=== PATIENT | male | born 1960 | race Caucasian/White ===

== ENCOUNTER 2024-03-24 14:22 | Outpatient (REF) | payer BC, SELFPAY ==
--- NOTE | 2024-03-24 14:00 | SKI_PTH ---
PATIENT: Kirt Mora LOC: [facility]#:[id number] AGE/SX: 63/M ROOM: RE03/24/[address]: Yahir Delgado : 1960 BED: DIS: 03/24/2024 SPEC #: [id number] RECD: 03/24/24 18:44 STATUS: JEANNIE REQ #: [id number] CHRIS: 03/24/24 14:[address]: Yahir Delgado DEPT: Surgical Specimen RECD BY: Susie Mehta ENTERED: 03/24/24 18:45 SP TYPE: ISI BEJARANO DR: Yahir Obregon Tissues: 1 - SKIN BIOPSY(SHAVE/PUNCH) Procedures: SKIN LEVEL 4 Comments: [id number]
--- OUTSIDE RECORDS SUMMARY | 2024-03-24 14:32 | XMS_ITS | Continuity of Care Document ---
Author Organization [facility] Address [address] [place] [address] Care Team Providers Care Molding Machine Operator Name Role Phone Primeau Yahir SANDRA Primary Care Physician Encounter [facility] Date(s): 10/16/23 - 10/16/[address] [id number] Discharge Disposition: Home or Self Care Attending Physician: Vadim Simpson MD Admitting Physician: Vadim Simpson MD Referring Physician: Vadim Simpson MD Allergies, Adverse Reactions, Alerts No Known Medication Allergies Immunizations Given and Recorded Vaccine Date Status Refusal Reason SARS-CoV-2 (COVID-19) mRNA-1273 vaccine 11/29/20 R ecorded SARS-CoV-2 (COVID-19) mRNA-1273 vaccine 11/01/20 R ecorded tetanus/diphth/pertuss (Tdap) adult/adol 08/12/19 Recorded tetanus-diphth toxoids (Td) adult/adol 08/03/98 Re corded Medications acetaminophen 325 mg oral tablet 650 mg = 2 tab, Oral, every 6 hr, PRN pain, mild, 0 Refill(s) Start Date: 10/09/23 Status: Ordered Colace 100 mg oral capsule 200 mg = 2 cap, Oral, BID, 0 Refill(s) Start Date: 10/09/23 Status: Ordered Fish Oil oral capsule 1 cap, Oral, Daily, # 100 cap, 0 Refill(s) Start Date: 08/04/23 Status: Ordered Myrbetriq 25 mg oral tablet, extended release 25 mg = 1 tab, Oral, Daily, do not crush or chew, # 28 tab, 0 Refill(s), samples given to patient (Rx) Start Date: 10/16/23 Stop Date: 11/13/23 Status: Ordered PreserVision AREDS 2 oral capsule 1 cap, Oral, BID, 0 Refill(s) Start Date: 08/28/23 Status: Ordered Problem List Condition Confirmation Course Effective Dates Status H ealth Status Informant 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 Impacted cerumen of right ear Confirmed Active Hernia, inguinal, unilateral Confirmed Active Osteoarthritis - hand joint Confirmed Active Senile purpura Confirmed Active Procedures Procedure Date Related Diagnosis Body Site Status Transurethral electrosurgica l resection of prostate, including control of postoperative bleeding, complete (vasectomy, meatotomy, cystourethroscopy, urethral calibration and/or dilation, and internal urethrotomy are included) 10/06/23 Comple ira Colonoscopy 04/12/17 Completed Repair of inguinal hernia 02/17/17 Completed Vasectomy Completed Results Orders for Microbiology Reports Name Date Urine Culture 10/16/23 Microbiology Reports TEST:Urine Culture STATUS:Order in Progress BODY SITE: SOURCE:Urine, Clean Catch COLLECTED DATE/TIME:10/16/23 10:23 AM PRELIMINARY REPORT No growth at 24 hours. Social History Social History Type Response Tobacco Never tobacco user T obacco Use:. Sex Male Patient Care team information Care Team Personnel Name: Yahir Andrews MD Position: No Access Member Role: Informed Provider Address: Address: [address] Care Team Related Persons Name: ALMA RAMIREZ Address: [address] [id number] Address: Home [address] [place] [phone]
--- OUTSIDE RECORDS SUMMARY | 2024-03-24 14:32 | XMS_ITS | Encounter Summary ---
Author Organization [facility] Address [address] [place] [address] Care Team Providers Care Die Setter Name Role Phone Unknown, Provider Primary Care Provider Reason for Visit * Reason Comments Eye Flashes And/Or Floaters New flashes and floaters ?left Hx of laser to tear right eye 03/12/21, hx of lattice right eye, hx of Dry AMD both eyes Encounter Details Date Type Department Care Team (Late st Contact Info) Description 11/04/2022 14:00 EDT Office Visit [facility] Ophthalmology - [address] [phone] Yahir Cuevas MD [address] [facility], [address] [place] [address] Social History Tobacco Use Types Packs/Day Years Used Date Smoking Tobacco: Never Smokeless Tobacco: Never Alcohol Use Standard Drinks/Week Comments Not Currently 0 (1 standard drink = 0.6 oz pur e alcohol) very rare PHQ-2 Answer Date Recorded PHQ-2 SUBTOTAL 0 12/24/2021 Interpersonal Safety Answer Date Record ed Physically Hurt Never 03/04/2020 Verbally Threaten Not on file 03/04/2020 Sex and Gender Information Value Date Recorded Sex Assigned at Not on file Gender Identity Male 09/26/2020 15:47 EST Sexual Orientation Not on file documented as of this encounter Progress Notes * Yahir Cuevas MD - 11/04/2022 1400 EDT Chief Complaint Patient presents with ??? Eye Flashes And/Or Floaters New flashes and floaters ?left Hx of laser to tear right eye 03/12/21, hx of lattice right eye, hx of Dry AMD both eyes Comments Eye Flashes And/Or Floaters Additional comments: New flashes and floaters ?left Hx of laser to tear right eye 03/12/21, hx of lattice right eye, hx of Dry AMD both eyes HPI Location: Left eye Pain: 0 - No pain Quality: Blurry Severity: Moderate Duration: Days Timing: Constant Lasts: Continuous Context: While driving to work yesterday early am he noticed flashes while turning head to the left. Flashes stopped by 7 am but then had new waterfall of floaters moving around. Seemed better this am but has progressed again. temporal side of vision seems foggy/smokey. No distinct curtain or shadein vision. Modifying factors: right eye seems to be doing ok. Associated Signs & Symptoms: Visual Fluctuations: Flashes, Floaters Attestation: Base Eye Exam Visual Acuity (Snellen - Linear) Right Left Dist cc 20/25 20/25 +2 Tonometry (Applanation, 14:51) Right Left Pressure 12 12 Visual Singer Right Left Full Full Neuro/Psych Oriented x3: Yes Mood/Affect: Normal Dilation Both eyes: Phenylephrine 2.5%, Tropicamide 1% @ 14:52 Slit Lamp and Fundus Exam Slit Lamp Exam Right Left Lids/Lashes Normal Normal Conjunctiva/Sclera White and quiet White and quiet Cornea Clear nasal Pterygium Anterior Chamber Deep and quiet Deep and quiet Iris Round and reactive Round and reactive Lens 1+ Nuclear sclerosis 1+ Nuclear sclerosis Anterior Vitreous Posterior vitreous detachment Posterior vitreous detachment Fundus Exam Right Left Disc Healthy Rim Healthy Rim C/D Ratio 0.4 0.3 Macula large drusen large confluent drusen, no hemorrhage, no fluid Vessels Normal Normal Periphery Retina is attached. Lattice at 11:00 and retinal tear at 12:00 are both well surrounded by laser scars. No new holes, tears or breaks seen Retina attached 360, no holes, tears or breaks seen, paving stone inf temp Please refer to large retinal drawing. OCT, Retina - OU - Both Eyes Right Eye Quality was good. Scan locations included subfoveal. Progression has been stable. Findings include pigment epithelial detachment, macular pucker. Left Eye Quality was good. Scan locations included subfoveal. Progression has been stable. Findings include pigment epithelial detachment. Notes Both eyes: Drusen, no fluid. ERM right eye OCT-A: No CNVM DIAGNOSES: 1. 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 Retinal tear of right eye 3. Lattice degeneration of retina, right eye 4. PVD (posterior vitreous detachment), both eyes Assessment Intermediate??dry age-related macular degeneration both eyes Stable vision and drusen No sign of CNVM Continue areds??2??vitamins. Observe ?? Retinal Tear right??eye Adjacent to patch of lattice degeneration. Well surrounded by laser scars??s/p laser 03-12-2021 retinopexy ERM developing - asympotmatic No new holes, tears or breaks seen Retinal detachment precautions??reviewed. ?? Lattice Degeneration??right??eye. Vs paving stone degeneration??temporally Well surrounded by laser scars superiorly Retina is attached?? Follow. ?? Posterior vitreous detachment, both eyes Retina attached, no??new??predisposing lesions to retinal detachment. New flashes and floaters left eye No holes, tears or retina detachment on 360 SD exam Retinal detachment precautions reviewed ?? Return in 6 months with OCT I have reviewed the past medical, family, social and surgical history. I have reviewed the meds, allergies, and problem list. I performed my own HPI and reviewed the ROS. I personally completed the exam. The patient was instructed to call our office or go to emergency room if worse vision, worse symptoms, or new/other concerns arise. Yahir Cuevas MD I am scribing for Dr. Yahir Cuevas MD while he is personally performing the service. HARRY Willams (Scribe) documented in this encounter Plan of Treatment Upcoming Encounters Date Type Department Care Team (Late st Contact Info) Description 05/27/2024 9:45 EDT Office Visit [facility] Ophthalmology - [address] [address] Yahir Cuevas MD [address] [facility], [address] [place] [address] documented as of this encounter Procedures Procedure Name Priority Date/Time Associated Diagnosis Comments OCT, RETINA - OU - BOTH EYES Routine 11/04/2022 16:38 EDT Intermediate stage nonexudative age-related macular degeneration of both eyes documented in this encounter Results * OCT, RETINA - OU - BOTH EYES (11/04/2022 16:38 EDT) Narrative [facility] OPHTHALMOLOGY - 11/04/2022 17:38 EDT Right Eye Quality was good. Scan locations included subfoveal. Progression has been stable. Findings include pigment epithelial detachment, macular pucker. Left Eye Quality was good. Scan locations included subfoveal. Progression has been stable. Findings include pigment epithelial detachment. Notes Both eyes: Drusen, no fluid. ERM right eye OCT-A: No CNVM Yahir Cuevas MD OPHTH TOMOGRAPHY [facility] OPHTHALMOLOGY documented in this encounter Visit Diagnoses Diagnosis Intermediate stage nonexudative age-related macular degeneration of both eyes- Primary Retinal tear of right eye Lattice degeneration of retina, right eye PVD (posterior vitreous detachment), both eyes Vitreous degeneration documented in this encounter Eye Exam Visual Acuity (Snellen - Linear) Right eye Left eye Dist cc 20/25 20/25 +2 Tonometry (Applanation, 14:51) Right eye Left eye Pressure 12 12 Visual Singer Right eye Left eye Full Full Neuro/Psych Oriented x3: Yes Mood/Affect: Normal Dilation Both eyes: Phenylephrine 2.5 %, Tropicamide 1% @ 14:52 Slit Lamp Exam Right eye Left eye Lids/Lashes Normal Normal Conjunctiva/Sclera White and quiet White and yenni et Cornea Clear nasal Pterygium Anterior Chamber Deep and quiet Deep and quiet Iris Round and reactive Round and radhika ctive Lens 1+ Nuclear sclerosis 1+ Nuclear sclerosis Anterior Vitreous Posterior vitreous detachment Posterior vitreous detachment Fundus Exam Right eye Left eye Disc Healthy Rim Healthy Rim C/D Ratio 0.4 0.3 Macula large drusen large confluent drusen, no hemorrhage, no fluid Vessels Normal Normal Periphery Retina is attached. Lattice at 11:00 and retinal tear at 12:00 are both well surrounded by laser scars. No new holes, tears or breaks seen Retina attached 360, no holes, tears or breaks seen, paving stone inf temp Care Teams Die Setter Relationship Specialty Start Date End Date Unknown, Provider, PCP - General 10/25/21 05/18/23 documented as of this encounter
--- OUTSIDE RECORDS SUMMARY | 2024-03-24 14:32 | XMS_ITS | Encounter Summary ---
Author Organization [facility] Address [address] [place] [address] Care Team Providers Care Receptionist Telephone Operator Name Role Phone Yahir Delgado MD Primary Care Provider [phone] Encounter Details Date Type Department Care Team (Late st Contact Info) Description 08/04/2023 Lab Requisition [facility] Pathology & Laboratory Medicine [address] [phone] Vadim Simpson MD [address] [place] [id number] Frequency of micturition Social History Tobacco Use Types Packs/Day Years [...] on file documented as of this encounter Plan of Treatment Upcoming Encounters Date Type Department Care Team (Late st Contact Info) Description 05/27/2024 9:45 EDT Office Visit [facility] Ophthalmology - [address] [phone] Yahir Cuevas MD [address] [facility], [address] [place] [address] [phone] (work) documented as of this encounter Procedures Procedure Name Priority Date/Time Associated Diagnosis Comments NON LOG CHAIN WORKER/FNA CYTOLOGY Today 08/04/2023 13:51 EST documented in this encounter Results * NON LOG CHAIN WORKER/FNA CYTOLOGY (08/04/2023 13:51 EST) Note to Patient The following pathology results have been interpreted by your pathologist and may be available to you before your health provider has had the opportunity to review them. Please allow time for your provider to receive these results and explore management options, if applicable. 08/05/2023 16:32 [facility] Final Diagnosis URINE, BARBOTAGE, CYTOLOGIC EVALUATION: - Negative for high grade urothelial carcinoma. 08/05/2023 16:32 [facility] Attestation There was significant resident/viola renee involvement in the diagnostic evaluation of this case. By the signature below, the attending physician certifies that they have personally conducted a gross and/or microscopic examination of the described specimens and rendered or confirmed the above diagnosis. 08/05/2023 16:32 [facility] at 1632 Clinical History R35.0 08/05/2023 16:32 [facility] Gross Description A. 90cc's of clear yellow fluid (Cytolyt added) were received and processed by selective cellular enhancement technique. 08/05/2023 16:32 [facility] Resident/Viola w: Mayuri Zamora MD 08/05/2023 16:32 [facility] Performing Lab [facility] 08/05/2023 16:32 [facility] Scanned Images 08/05/2023 16:32 [facility] ZZUNK URINE / Unknown 08/04/2023 1 3:51 EST 08/05/2023 6:39 EST Vadim Simpson MD PATHOLOGY ORDERABLES [facility] [address] [place] [address] documented in this encounter Visit Diagnoses Diagnosis Frequency of micturition Urinary frequency documented in this encounter Care Teams Receptionist Telephone Operator Relationship Specialty Start Date End Date Yahir Delgado MD [address] [place] [address] PCP - General Internal Medicine - Primary Care 05/19/23 documented as of this encounter
--- OUTSIDE RECORDS SUMMARY | 2024-03-24 14:32 | XMS_ITS | Clinical Summary ---
Author Organization [facility] [place] [address] Care Team Providers Care Sawsmith Name Role Phone None Primary Care Provider Unavailabl e Social History Tobacco Use Types Packs/Day Years Used Date Smoking Tobacco: Never Assessed Sex and Gender Information Value Date Recorded Sex Assigned at Not on file Gender Identity Not on file Sexual Orientation Not on file Plan of Treatment Health Maintenance Due Date Last Done Comments CT Colonography 1960 Colonoscopy 1960 Colorectal Cancer Screening 1960 FIT DNA 1960 FIT 1960 Sigmoidoscopy (10 year) with FIT yearly 1960 Sigmoidoscopy 1960 HIV screen 1976 Hepatitis C Screening 1976 Lipid Screening 1976 Tdap adult 1977 Tetanus vaccine 1977 Zoster vaccine (1 of 2) 2008 Advance Directive 2013 Covid-19 Vaccine ( - 2022-24 season) 2023 Pneumoccocal Vaccine: 65+ (1 of 1 - PCV) 12/14/2023 Influenza (Flu) vaccine (1 o f 1 - Influenza standard series) 04/03/2024 Care Teams Sawsmith Relationship Specialty Start Date End Date None None PCP - General 06/25/10
--- OUTSIDE RECORDS SUMMARY | 2024-03-24 14:32 | XMS_ITS | Continuity of Care Document ---
Author Organization [facility] Address [address] [place] [address] Care Team Providers Care Pit Operator Name Role Phone Primeau IPHC, Yahir Trinidad Primary Care Physician Encounter [facility] [id number] Date(s): 10/06/23 - 10/06/23 [facility] [address] [place] [address] Discharge Disposition: Home Allergies, Adverse Reactions, Alerts No Known Medication Allergies Immunizations Given and Recorded Vaccine Date Status Refusal Reason SARS-CoV-2 (COVID-19) mRNA-1273 vaccine 11/29/20 R ecorded SARS-CoV-2 (COVID-19) mRNA-1273 vaccine 11/01/20 R ecorded tetanus/diphth/pertuss (Tdap) adult/adol 08/12/19 Recorded tetanus-diphth toxoids (Td) adult/adol 08/03/98 Re corded Medications Fish Oil oral capsule 1 cap, Oral, Daily, # 100 cap, 0 Refill(s) Start Date: 08/04/23 Status: Ordered PreserVision AREDS 2 oral capsule 1 cap, Oral, BID, 0 Refill(s) Start Date: 08/28/23 Status: Ordered tamsulosin 0.4 mg oral capsule 0.8 mg = 2 cap, Oral, every night at bedtime, 0 Refill(s) Start Date: 10/06/23 Status: Ordered Problem List Condition Confirmation Course Effective Dates Status H ealth Status Informant 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 Sex Male Patient Care team information Care Team Personnel Name: Yahir Andrews MD Position: No Access Member Role: Informed Provider Address: Address: [address] Care Team Related Persons Name: ALMA RAMIREZ Address: [place] [address] Address: [place] [address]
--- OUTSIDE RECORDS SUMMARY | 2024-03-24 14:32 | XMS_ITS | Referral Summary ---
Author Organization [facility] Address [address] [place] [address] Care Team Providers Care Sewer Inspector Name Role Phone Yahir Delgado MD Primary Care Provider [phone] Allergies Active Allergy Reactions Criticality Noted Date Comments Grass Pollen Shortness Of Breath,Other (See Comments) Medium 03/12/2021 Eye redness, itching Medications Medication Sig Dispensed Refills Start Date End Date Status Nicholson-3 Fatty Acids-Vitamin E 1,000 mg capsule Take 2,000 mg by mouth daily. Active VIT C/E/ZN/COPPR/LUTEIN/TY ANNA (PRESERVISION AREDS 2 ORAL) Take by mouth. Active MINERAL OIL/PETROLATUM,WHITE (TEARS AGAIN OPHTHALMIC) Apply to eye as needed. Active doxycycline (ADOXA) 100 mg tablet Take 100 mg by mouth 2 times daily. Active Active Problems Patient Care Coordination No te Formatting of this note migh t be different from the original. Clinic: Need to verify patient's address. Too close to appointment to place call. Please verify or transfer to pre-registration to register. Thank you (Bibi Kolb 10/25/2021 8:47) Problem Noted Date Diagnosed Date Intermediate stage nonexudat lauren age-related macular degeneration of both eyes 03/12/2021 Pterygium of left eye 03/12/2021 Nuclear sclerosis of both eyes 03/12/2021 Lattice degeneration of retina, right eye 2020 Retinal tear of right eye 03/12/2021 PVD (posterior vitreous detachment), both eyes 0 01/18/2016 Dry eye 02/17/2014 Social History Tobacco Use Types Packs/Day Years [...] 15:47 EST Sexual Orientation Not on file Last Filed Vital Signs Vital Sign Reading Time Taken Comments Blood Pressure 137/78 12/24/2021 1318 EDT Pulse 66 12/24/2021 1318 EDT Temperature 36.7 ??C (98 ??F) 12/24/2021 1318 EDT Respiratory Rate 16 12/24/2021 1318 EDT Oxygen Saturation 97% 12/24/2021 1318 EDT Inhaled Oxygen Concentration - - Weight - - Height - - Body Mass Index - - Plan of Treatment Upcoming Encounters Date Type Department Care Team (Late st Contact Info) Description 05/27/2024 9:45 EDT Office Visit [facility] Ophthalmology - [address] [address] Yahir Cuevas MD [address] [place] [address], [address] [place] [phone] Care Teams Sewer Inspector Relationship Specialty Start Date End Date Yahir Delgado MD [address] [place] [address] PCP - General Internal Medicine - Primary Care 05/19/23
--- OUTSIDE RECORDS SUMMARY | 2024-03-24 14:32 | XMS_ITS | Encounter Summary ---
Author Organization [facility] Address [address] [place] [address] Care Team Providers Care Clinical Coordinator Name Role Phone Unknown, Provider Primary Care Provider [phone] Reason for Visit * Reason Comments Follow-up Encounter Details Date Type Department Care Team (Late st Contact Info) Description 11/08/2021 8:00 EDT Office Visit [facility] Ophthalmology - [address] [phone] Yahir Cuevas MD [address] [place] [address], [address] [place] [phone] Social History Tobacco Use Types Packs/Day Years Used Date Smoking Tobacco: Never Smokeless Tobacco: Never Alcohol Use Standard Drinks/Week Comments Not Currently 0 (1 standard drink = 0.6 oz pur e alcohol) very rare Interpersonal Safety Answer Date Record ed Physically Hurt Never 03/04/2020 Verbally Threaten Not on file 03/04/2020 Sex and Gender Information Value Date Recorded Sex Assigned at Not on file Gender Identity Male 09/26/2020 15:47 EST Sexual Orientation Not on file documented as of this encounter Progress Notes * Yahir Cuevas MD - 11/08/2021 0800 EDT Chief Complaint Patient presents with ??? Follow-up Comments Pt here for 2 week f/u S/P Laser to HST right (03-12-21) Hx of Dry AMD both VA blurry right eye like looking through waterfall that comes and goes. Floaters both eyes longstanding no new or different. No flashes. No pain HPI Location: Both eyes Pain: 0 - No pain Quality: Blurry Severity: Moderate Duration: Years Timing: Constant Lasts: Continuous Context: VA blurry right eye like looking through waterfall that comes and goes. Floaters both eyes longstanding no new or different. No flashes. No pain Modifying factors: S/P Laser to HST right (03-12-21) Daily AG/AREDS Associated Signs & Symptoms: HST right, Dry AMD both Visual Fluctuations: Floaters Attestation: Base Eye Exam Visual Acuity (Snellen - Linear) Right Left Dist sc 20/40 +2 20/20 -2 Dist ph sc 20/25 +2 Tonometry (Applanation, 8:29) Right Left Pressure 13 13 Neuro/Psych Oriented x3: Yes Mood/Affect: Normal Dilation Right eye: Phenylephrine 2.5%, Tropicamide 1% @ 8:29 Slit Lamp and Fundus Exam Slit Lamp Exam Right Left Lids/Lashes Normal Normal Conjunctiva/Sclera White and quiet White and quiet Cornea Clear nasal Pterygium Anterior Chamber Deep and quiet Deep and quiet Iris Round and reactive Round and reactive Lens 1+ Nuclear sclerosis 1+ Nuclear sclerosis Vitreous Posterior vitreous detachment Posterior vitreous detachment [...] attached 360, no holes, tears or breaks seen Please refer to large retinal drawing. IMAGING: OCT, Retina - OU - Both Eyes Right Eye Quality was good. Scan locations included subfoveal. Progression has been stable. Findings include pigment epithelial detachment. Left Eye Quality was good. Scan locations included subfoveal. Progression has been stable. Findings include pigment epithelial detachment. Notes Both eyes: Drusen, no fluid OCT-A: No CNVM DIAGNOSES: 1. 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 Retinal tear of right eye Assessment Intermediate??dry age-related macular degeneration both eyes Continue areds??2??vitamins. Observe ?? Retinal Tear right??eye Adjacent to patch of lattice degeneration. Well surrounded by laser scars??s/p laser 03-12-2021 retinopexy No new holes, tears or breaks seen Retinal detachment precautions??reviewed. ?? Lattice Degeneration??right??eye. Vs paving stone degeneration??temporally Well surrounded by laser scars superiorly Retina is attached?? Follow. ?? Posterior vitreous detachment, both eyes Retina attached, no??new??predisposing lesions to retinal detachment. ?? Return 6 months/PRN I have reviewed the past medical, family, [...] he is personally performing the service. HARRY Dow (Scribe) documented in this encounter Plan of Treatment Upcoming Encounters Date Type Department Care Team (Late st Contact Info) Description 05/27/2024 9:45 EDT Office Visit [facility] Ophthalmology - [address] [phone] Yahir Cuevas MD [address] [place] [address], [address] [place] [phone] documented as of this encounter Procedures Procedure Name Priority Date/Time Associated Diagnosis Comments OCT, RETINA - OU - BOTH EYES Routine 11/08/2021 9:02 EDT Intermediate stage nonexudative age-related macular degeneration of both eyes documented in this encounter Results * OCT, RETINA - OU - BOTH EYES (11/08/2021 9:02 EDT) Narrative [facility]INT [facility] C[facility] - 11/12/2021 9:22 EDT Right Eye Quality was good. Scan locations included subfoveal. Progression has been stable. Findings include pigment epithelial detachment. Left Eye Quality was good. Scan locations included subfoveal. Progression has been stable. Findings include pigment epithelial detachment. Notes Both eyes: Drusen, no fluid OCT-A: No CNVM Yahir Cuevas MD OPHTH TOMOGRAPHY [facility] POINT [facility] documented in this encounter Visit Diagnoses Diagnosis Intermediate stage nonexudative age-related macular degeneration of both eyes- Primary Retinal tear of right eye documented in this encounter Eye Exam Visual Acuity (Snellen - Linear) Right eye Left eye Dist sc 20/40 +2 20/20 -2 Dist ph sc 20/25 +2 Tonometry (Applanation, 8:29) Right eye Left eye Pressure 13 13 Neuro/Psych Oriented x3: Yes Mood/Affect: Normal Dilation Right eye: Phenylephrine 2.5 %, Tropicamide 1% @ 8:29 Slit Lamp Exam Right eye Left eye Lids/Lashes Normal Normal Conjunctiva/Sclera White and quiet White and yenni et Cornea Clear nasal Pterygium Anterior Chamber Deep and quiet Deep and quiet Iris Round and reactive Round and radhika ctive Lens 1+ Nuclear sclerosis 1+ Nuclear sclerosis Vitreous Posterior vitreous detachment Po sterior vitreous detachment Fundus Exam Right eye Left [...] attached 360, no holes, tears or breaks seen Care Teams Clinical Coordinator Relationship Specialty Start Date End Date Unknown, Provider, PCP - General 10/25/21 05/18/23 documented as of this encounter
--- OUTSIDE RECORDS SUMMARY | 2024-03-24 14:32 | XMS_ITS | Encounter Summary ---
Author Organization [facility] Address [facility] [place] [address] Care Team Providers Care Shoe Cleaner Name Role Phone None Primary Care Provider Unavailabl e Encounter Details Date Type Department Care Team (Late st Contact Info) Description 11/26/2023 3:48 PM EDT - 11/26/2023 11:59 PM EDT Hospital Encounter [facility] [address] [place] [phone] Vadim Simpson MD [address] [place] [address] Discharge Disposition: Home Social History Tobacco Use Types Packs/Day Years Used Date Smoking Tobacco: Never Assessed Sex and Gender Information Value Date Recorded Sex Assigned at Not on file Gender Identity Not on file Sexual Orientation Not on file documented as of this encounter Plan of Treatment Not on file documented as of this encounter Procedures Procedure Name Priority Date/Time Associated Diagnosis Comments URINE CULTURE Routine 11/26/2023 2:14 PM EDT documented in this encounter Results * Urine culture (11/26/2023 2:14 PM EDT) Urine Culture No growth (Less than 1,000 cfu/ml). [facility] Clean Catch Urine 11/26/2023 2:14 PM EDT 11/26/2023 9:59 PM EDT Narrative Resulting Agency Comment Spec In Lab Vadim Simpson MD MICROBIOLOGY - GENER AL ORDERABLES [facility] [place] [address] documented in this encounter Visit Diagnoses Not on filedocumented in this encounter Care Teams Shoe Cleaner Relationship Specialty Start Date End Date None None PCP - General 06/25/10 documented as of this encounter
--- OUTSIDE RECORDS SUMMARY | 2024-03-24 14:32 | XMS_ITS | Encounter Summary ---
Author Organization [facility] Address [address] [place] [address] Care Team Providers Care Hedis Registered Nurse Rn Name Role Phone Unknown, Provider Primary Care Provider [phone] Reason for Visit * Reason Onset Date Comments Eye Problem 10/25/2021 Encounter Details Date Type Department Care Team (Late st Contact Info) Description 10/25/2021 Telephone [facility] Ophthalmology - [address] [address] Yahir Cuevas MD [address] [place] [address], [address] [place] [phone] Eye Problem Social History Tobacco Use Types Packs/Day Years [...] on file documented as of this encounter Miscellaneous Notes * Telephone Encounter - Adriana Garcia - 10/25/2021 0832 EDT Pt schedule at 9am this morning with RR * Telephone Encounter - Jesus Ivan RN - 10/25/[address] Cuevas needs to see this morning. Possible laser. Salima/Adriana to call. Jesus Person RN 10/25/2021 8:28 * Telephone Encounter - Janie Soto - 10/25/2021 0808 EDT Which Eye? right Nature of problem? Floaters, wateryfall things he was told by RR pt things that it may be a retinaltear as this is what he experinced last time in the other eye Onset and Duration? 3 days ago Is this an injury or trauma? Are you having pain? Describe the type of pain you are having (sharp, dull, etc) no If yes, please rate pain on scale 0-10? Have you had any recent surgery? Do you have establish eye care? yes With who? Dr Mccain Did you call them? No If yes, do you have appointment with them? No Are the notes being faxed over? documented in this encounter Plan of Treatment Upcoming Encounters Date Type Department Care Team (Late st Contact Info) Description 05/27/2024 9:45 EDT Office Visit [facility] Ophthalmology - [address] [phone] Yahir Cuevas MD [address] [facility], [address] [place] [phone] documented as of this encounter Visit Diagnoses Not on filedocumented in this encounter Care Teams Hedis Registered Nurse Rn Relationship Specialty Start Date End Date Unknown, Provider, PCP - General 10/25/21 05/18/23 documented as of this encounter
--- OUTSIDE RECORDS SUMMARY | 2024-03-24 14:32 | XMS_ITS | Encounter Summary ---
Author Organization [facility] Address [address] [place] [address] Care Team Providers Care Film Spooler Name Role Phone Yahir Delgado MD Primary Care Provider [phone] Reason for Visit * Reason Comments Eye Problem Encounter Details Date Type Department Care Team (Late st Contact Info) Description 05/22/2023 14:00 EDT Office Visit [facility] Ophthalmology - [address] [address] Yahir Cuevas MD [address] [place] [address], [address] [place] [phone] Social History Tobacco Use Types Packs/Day Years [...] Progress Notes * Yahir Cuevas MD - 05/22/2023 1400 EDT Chief Complaint Patient presents with ??? Eye Problem HPI F/u Dry AMD both eyes, h/o Retinal tear-treated 03/12/21, Pt stats little more blurrier last few months, no pain, more often seeing flashes, stable floaters Base Eye Exam Visual Acuity (Snellen - Linear) Right Left Dist cc 20/25 -1 20/20 -2 Correction: Glasses Tonometry (Applanation, 14:06) Right Left Pressure 13 11 Neuro/Psych Oriented x3: Yes Mood/Affect: Normal Dilation Both eyes: Phenylephrine 2.5%, Tropicamide 1% @ 14:06 Slit Lamp and Fundus Exam Slit Lamp [...] or breaks seen, paving stone inf temp OCT, Retina - OU - Both Eyes Right Eye Quality was good. Scan locations included subfoveal. Progression has been stable. Findings include macular pucker, pigment epithelial detachment. Left Eye Quality was [...] degeneration. Well surrounded by laser scars??s/p laser 03-12-2021??retinopexy ERM developing - asympotmatic No new holes, [...] Retinal detachment precautions reviewed ?? Return in about 1 year (around 05/22/2024), or if symptoms worsen or fail to improve, for dilation,OCT. I am scribing for Dr. Yahir Cuevas MD while he is personally performing the service. RADHA Calvillo (Scribe) documented in this encounter Plan of Treatment Upcoming Encounters Date Type Department Care Team (Late st Contact Info) Description 05/27/2024 9:45 EDT Office Visit [facility] Ophthalmology - [address] [address] Yahir Cuevas MD [address] [facility], [address] [place] [phone] documented as of this encounter Procedures Procedure Name Priority Date/Time Associated Diagnosis Comments OCT, RETINA - OU - BOTH EYES Routine 05/22/2023 15:17 EDT Intermediate stage nonexudative age-related macular degeneration of both eyes documented in this encounter Results * OCT, RETINA - OU - BOTH EYES (05/22/2023 15:17 EDT) Narrative [facility] OPHTHALMOLOGY - 05/23/2023 9:53 EDT Right Eye Quality was good. Scan locations included subfoveal. Progression has been stable. Findings include macular pucker, pigment epithelial detachment. Left Eye Quality was good. Scan locations included subfoveal. Progression has been stable. Findings include pigment epithelial detachment. Notes Both eyes: Drusen, no fluid. ERM right eye OCT-A: No CNVM Yahir Cuevas MD OPHTH TOMOGRAPHY [facility] OPHTHALMOLOGY documented in this encounter Visit Diagnoses Diagnosis Intermediate stage nonexudative age-related macular degeneration of both eyes- Primary Retinal tear of right eye Lattice degeneration of retina, right eye PVD (posterior vitreous detachment), both eyes Vitreous degeneration documented in this encounter Eye Exam Visual Acuity (Snellen - Linear) Right eye Left eye Dist cc 20/25 -1 20/20 -2 Correction: Glasses Tonometry (Applanation, 14:06) Right eye Left eye Pressure 13 11 Neuro/Psych Oriented x3: Yes Mood/Affect: Normal Dilation Both eyes: Phenylephrine 2.5 %, Tropicamide 1% @ 14:06 Slit Lamp Exam Right eye Left eye [...] seen, paving stone inf temp Care Teams Film Spooler Relationship Specialty Start Date End Date Yahir Delgado MD [address] [place] [address] PCP - General Internal Medicine - Primary Care 05/19/23 documented as of this encounter
--- OUTSIDE RECORDS SUMMARY | 2024-03-24 14:32 | XMS_ITS | Encounter Summary ---
Author Organization [facility] Address [address] [place] [address] Care Team Providers Care Breakfast And Room Attendant Name Role Phone Unknown, Provider Primary Care Provider Reason for Visit * Reason Comments Eye Problem Encounter Details Date Type Department Care Team (Late st Contact Info) Description 10/25/2021 9:00 EDT Office Visit [facility] Ophthalmology - [address] [phone] Yahir Cuevas MD [address] [place] [address], [address] [place] [phone] Social History Tobacco Use Types Packs/Day Years [...] Progress Notes * Yahir Cuevas MD - 10/25/2021 0900 EDT Chief Complaint Patient presents with ??? Eye Problem Comments ERV today c/o right eye increase in floaters and wateryfall, wavy things Across his vision as well. Which he noticed approx 3 days ago and seems to be constant. No eye pain. Vision intermittently blurred right eye and right eye seems dryer lately. No flashes. HPI Location: Right eye Pain: 0 - No pain Quality: Distorted, Blurry Severity: Moderate Duration: Days Timing: Constant Lasts: Continuous Context: ERV today c/o right eye increase in floaters and wateryfall, wavy things Across his vision as well. Modifying factors: Which he noticed approx 3 days ago and seems to be constant. Associated Signs & Symptoms: No eye pain. Vision intermittently blurred right eye and right eyeseems dryer lately. No flashes. Visual Fluctuations: Floaters Attestation: Base Eye Exam Visual Acuity (Snellen - Linear) Right Left Dist sc 20/30 +2 20/25 Tonometry (Applanation, 9:23) Right Left Pressure 14 16 Pupils Dark Light Right 3.5 3 Left 3.5 3 Visual Singer Right Left Full Full Extraocular Movement Right Left Full, Ortho Full, Ortho Neuro/Psych Oriented x3: Yes Mood/Affect: Normal Dilation Right eye: Phenylephrine 2.5%, Tropicamide 1% @ 9:23 Slit Lamp and Fundus Exam Slit Lamp [...] fluid Vessels Normal Normal Periphery Retina is attached with Lattice Degeneration at 7:00, 9:00. Lattice at 11:00 and retinal tear at 12:00 are both well surrounded by laser scars. No new holes, tears or breaks seen Retina attached 360, no holes, tears or breaks seen Please refer to large retinal drawing. IMAGING: DIAGNOSES: 1. Intermediate stage nonexudative age-related macular degeneration of both eyes 2. Retinal tear of right eye 3. Lattice degeneration of retina, right eye 4. PVD (posterior vitreous detachment), both eyes Assessment Intermediate dry age-related macular degeneration both eyes Continue areds 2 vits. Observe ?? Retinal Tear right??eye Adjacent to patch of lattice degeneration. Well surrounded by laser scars s/p laser 03-12-21 No new holes, tears or breaks seen Retinal detachment precautions reviewed. ?? Lattice Degeneration??right??eye. Vs paving stone degeneration??temporally Well surrounded by laser scars superiorly Retina is attached?? Follow. ?? Posterior vitreous detachment, both eyes Retina attached, no new predisposing lesions to retinal detachment. Return in about 2 weeks (around 11/08/2021), or if symptoms worsen or fail to improve. I have reviewed the past medical, family, [...] Info) Description 05/27/2024 9:45 EDT Office Visit [facility] Ophthalmology - [address] [phone] Yahir Cuevas MD [address] [facility], [address] [place] [phone] documented as of this encounter Visit Diagnoses Diagnosis Intermediate stage nonexudative age-related macular degeneration of both eyes- Primary Retinal tear of right eye Lattice degeneration of retina, right eye PVD (posterior vitreous detachment), both eyes Vitreous degeneration documented in this encounter Discontinued Medications Medication Sig Discontinue Reason Start Date End Da te ibuprofen (ADVIL) 200 mg tablet Take 200 mg by mouth every 6 hours as needed. Therapy completed 10/25/2021 Vit A,C,V-Ezgf-Reutsq (ICAPS AREDS) capsule Take 1 Cap by mouth daily. Therapy completed 10/25/2021 documented as of this encounter Eye Exam Visual Acuity (Snellen - Linear) Right eye Left eye Dist sc 20/30 +2 20/25 Tonometry (Applanation, 9:23) Right eye Left eye Pressure 14 16 Pupils Dark Light Right eye 3.5 3 Left eye 3.5 3 Visual Singer Right eye Left eye Full Full Extraocular Movement Right eye Left eye Full, Ortho Full, Ortho Neuro/Psych Oriented x3: Yes Mood/Affect: Normal Dilation Right eye: Phenylephrine 2.5 %, Tropicamide 1% @ 9:23 Slit Lamp Exam Right eye Left eye [...] fluid Vessels Normal Normal Periphery Retina is attached w ith Lattice Degeneration at 7:00, 9:00. Lattice at 11:00 and retinal tear at 12:00 are both well surrounded by laser scars. No new holes, tears or breaks seen Retina attached 360, no holes, tears or breaks seen Care Teams Breakfast And Room Attendant Relationship Specialty Start Date End Date Unknown, Provider, PCP - General 10/25/21 05/18/23 documented as of this encounter
--- OUTSIDE RECORDS SUMMARY | 2024-03-24 14:32 | XMS_ITS | Encounter Summary ---
Author Organization [facility] Address [address] [place] [address] Care Team Providers Care Deburr Operator Name Role Phone Yahir Delgado MD Primary Care Provider Encounter Details Date Type Department Care Team (Late st Contact Info) Description 10/07/2023 Lab Requisition [facility] Pathology & Laboratory Medicine [address] [phone] Vadim Simpson MD [address] [place] [address] Encounter for other general examination Social History Tobacco Use Types Packs/Day Years [...] 05/27/2024 9:45 EDT Office Visit [facility] Ophthalmology - [address] [address] Yahir Cuevas MD [address] [facility], [address] [place] [address] [phone] (work) documented as of this encounter Procedures Procedure Name Priority Date/Time Associated Diagnosis Comments SURGICAL PATHOLOGY Today 10/07/2023 12 :55 EST documented in this encounter Results * SURGICAL PATHOLOGY (10/07/2023 12:55 EST) Note to Patient The following pathology results have been interpreted by your pathologist and may be available to you before your health provider has had the opportunity to review them. Please allow time for your provider to receive these results and explore management options, if applicable. 10/12/2023 8:56 [facility] Final Diagnosis A. PROSTATE, TRANSURETHRAL RESECTION (TURP): -Prostatic tissue with glandular and stromal hyperplasia. 10/12/2023 8:56 [facility] Attestation There was significant resident/fellow involvement in the diagnostic evaluation of this case. By the signature below, the attending physician certifies that they have personally conducted a gross and/or microscopic examination of the described specimens and rendered or confirmed the above diagnosis. 10/12/2023 8:56 [facility] at 0856 Clinical History BPH with obstruction/lower urinary tract symptoms 10/12/2023 8:56 [facility] Gross Description A. Received in formalin labelled with proper patient identification (initials D, D) and prostate, curettings are multiple moreno-melgar, rubbery and cauterized soft tissue fragments (12.7 g, 6.0 x 6.0 x 1.5 cm in aggregate). Entirely submitted in A1-A12. CHARLEY JASSO MD 10/08/2023 10:22 10/12/2023 8:56 [facility] Resident/[place] w: Charley Jasso MD 10/12/2023 8:56 [facility] Performing Lab [facility] 10/12/2023 8:56 [facility] Scanned Images 10/12/2023 8:56 [facility] Tissue PROSTATIC STRUCTURE / Unknown 10/07/2023 12:55 EST 10/07/2023 23:36 EST Vadim Simpson MD PATHOLOGY ORDERABLES [facility] [address] [place] [address] documented in this encounter Visit Diagnoses Diagnosis Encounter for other general examination documented in this encounter Care Teams Deburr Operator Relationship Specialty Start Date End Date Yahir Delgado MD [address] [place] [address] PCP - General Internal Medicine - Primary Care 05/19/23 documented as of this encounter
--- OUTSIDE RECORDS SUMMARY | 2024-03-24 14:32 | XMS_ITS | Encounter Summary ---
Author Organization [facility] Address [address] [place] [address] Care Team Providers Care Outside Plant Field Engineer Name Role Phone Unknown, Provider Primary Care Provider + [phone] Yahir Delgado MD Primary Care Provider + [phone] Reason for Visit * Reason Onset Date Comments Eye Problem 11/04/2022 Encounter Details Date Type Department Care Team (Late st Contact Info) Description 11/04/2022 Telephone [facility] Ophthalmology - [address] [id number] Yahir Cuevas MD [address] [facility], [address] [place] [address] Eye Problem Social History Tobacco Use Types [...] * Telephone Encounter - Adriana Garcia - 11/04/2022 1331 EDT Scheduled today with RR * Telephone Encounter - Pantera Ohara RN - 11/04/2022 1322 EDT Per RR, schedule pt for visit with him today. Jonas Ohara RN 11/04/2022 13:22 * Telephone Encounter - Lora Chiang - 11/04/2022 1213 EDT Which Eye? Both? Nature of problem? flashes yesterday 3d animator followed by a waterfall of floaters. Flashing hasn't occurred since yesterday but floaters have persisted. [place] is cloudier. Harder to focus eyes. If he moves his head he can see the floaters move more prominently. No curtain, veil, or complete loss of vision Onset and Duration? Yesterday morning Is this an injury or trauma? no Are you having pain? Describe the type of pain you are having (sharp, dull, etc) very intermittent sharp pain that has gone on for a long time, but did happen once recently If yes, please rate pain on scale 0-10? 5/10 Have you had any recent surgery? no Do you have establish eye care? yes With who? RR Did you call them? (If not, please call them first.) yes If yes, do you have appointment with them? When? No. overdue Are the notes being faxed over? N/a Can the patient come to clinic? yes How long would it take? Pt is in [place] until 4pm today. He can be here within 20 mins documented in this encounter Plan of Treatment Upcoming Encounters Date Type Department Care Team (Late st Contact Info) Description 05/27/2024 9:45 EDT Office Visit [facility] Ophthalmology - [address] [id number] Yahir Cuevas MD [address] [facility], [address] [place] [phone] documented as of this encounter Visit Diagnoses Not on filedocumented in this encounter Care Teams Outside Plant Field Engineer Relationship Specialty Start Date End Date Unknown, Provider, PCP - General 10/25/21 05/18/23 Yahir Delgado MD [address] [place] [address] PCP - General Internal Medicine - Primary Care 05/19/23 documented as of this encounter
--- OUTSIDE RECORDS SUMMARY | 2024-03-24 14:32 | XMS_ITS | Clinical Summary ---
Author Organization [facility] Address [address] [place] [address] Care Team Providers Care Sales Trader Name Role Phone Yahir Delgado MD Primary Care Provider [phone] Allergies Active Allergy Reactions Criticality Noted Date Comments Grass Pollen Shortness Of Breath,Other (See Comments) Medium 03/12/2021 Eye redness, itching Medications Medication Sig Dispensed Refills Start Date End Date Status [place]-3 Fatty Acids-Vitamin E 1,000 mg capsule Take [...] both eyes 0 01/18/2016 Dry eye 02/17/2014 Medical History Medical History Date Comments Eye trauma nail in ?eye Cataract Other states following surgery of eye and adnexa Family History Medical History Relation Comments Diabetes Father Hypertension Father Macular Degeneration Father Cancer Mother Brain tumor Hypertension Mother Diabetes Paternal Grandmother Diabetes Sister Kidney Disease Sister Glaucoma Neg Hx Retinal Detachment Neg Hx Relation Status Comments Father Alive Mother Paternal Grandmother Sister Social History Tobacco Use Types Packs/Day Years [...] 15:47 EST Sexual Orientation Not on file Obstetrics History Last Filed Vital Signs Vital Sign Reading [...] Info) Description 05/27/2024 9:45 EDT Office Visit [facility] Ophthalmology - [address] [id number] Yahir Cuevas MD [address] [place] [address], [address] [place] [address] Health Maintenance Due Date Last Done Comments Hepatitis C Screen 1960 RSV Immunization ( o r 60+ Years) (1 - 1-dose 60+ series) 2018 COVID-19 Vaccine ( - 2022- season) 2023, 11/01/2020 Fall Risk Screening 12/14/2023 Care Teams Sales Trader Relationship Specialty Start Date End Date Yahir Delgado MD [address] [place] [address] PCP - General Internal Medicine - Primary Care 05/19/23
--- OUTSIDE RECORDS SUMMARY | 2024-03-24 14:32 | XMS_ITS | Encounter Summary ---
Author Organization [facility] Address [address] [place] [id number] Care Team Providers Care Mechanical Inspector Name Role Phone Unknown, Provider Primary Care Provider Reason for Visit * Reason Comments Laceration right posterior FA l ac, approx 6-7 cm, sustained today from a dumpster Encounter Details Date Type Department Care Team (Latest Contact Info) Description 12/24/2021 13:45 EDT - 12/24/2021 15:54 EDT Hospital Encounter [facility] - [address] [address] Marie Hernandez MD [address] [place] [phone] Laceration of skin of right forearm, initial encounter (Primary Dx); Easy bruising Discharge Disposition: Home or Self Care Social History Tobacco Use Types Packs/Day Years [...] on file documented as of this encounter Last Filed Vital Signs Vital Sign Reading Time Taken Comments Blood Pressure 137/78 12/24/2021 1318 EDT Pulse 66 12/24/2021 1318 EDT Temperature 36.7 ??C (98 ??F) 12/24/2021 1318 EDT Respiratory Rate 16 12/24/2021 1318 EDT Oxygen Saturation 97% 12/24/2021 1318 EDT Inhaled Oxygen Concentration - - Weight - - Height - - Body Mass Index - - documented in this encounter Discharge Instructions * Discharge Instructions* Marie Hernandez MD - 12/24/2021 15:37 EDT The laceration was closed with sutures. Keep the wound clean and dressed. The original bandage can come off after 24 hours. Wash daily with soap and water. Use vaseline to keep moist and cover with a new bandage. Avoid getting the wound overly wet (immersed in water- dishes, pool, bath, nielsen, hot tub etc) or dirty. It is ok to take a shower and wash the area. If you notice any redness, purulent drainage, fevers or chills, pain or red streaking from the site, you need to be evaluated for possible infection and should return to be seen. Otherwise, follow up in 10 days for wound check and suture removal. I checked a CBC because of your easy bruising. I will let you know if the platelets are abnormal. If you do not get a phone call that means your labs are normal. * Attachments The following attachments cannot be sent through Care Everywhere. * Lacerations: Stitches (Italian) documented in this encounter Medications at Time of Discharge Medication Sig Dispensed Refills Start Date End Date doxycycline (ADOXA) 100 mg tablet Take 100 mg by mouth 2 times daily. MINERAL OIL/PETROLATUM,WHITE (TEARS AGAIN OPHTHALMIC) Apply to eye as needed. [address]-3 Fatty Acids-Vitamin E 1,000 mg capsule Take 2,000 mg by mouth daily. VIT C/E/ZN/COPPR/LUTEIN/ZEAXAN (PRESERVISION AREDS 2 ORAL) Take by mouth. documented as of this encounter Discharge Disposition Disposition Code Departure Means Destination Home or Self Skilled Nursing documented in this encounter ED Notes * Marie Hernandez MD - 12/24/2021 9997 EDTAssociated Order(s): Laceration Post-Procedure Diagnose(s): Laceration of skin of right forearm, initial encounter DOS: 12/24/2021 Chief Complaint: Chief Complaint Patient presents with ??? Laceration right posterior FA lac, approx 6-7 cm, sustained today from a dumpster Assessment and Plan Patient has a laceration on his right forearm that was repaired with sutures. He is going to follow-up with his PCP in 10 days for suture removal. He is going to watch for signs of infection and should this occur follow-up earlier. Tetanus shot was up-to-date. He has had easy bruising for over a year now we will check a CBC. He is not on blood thinners, he does not drink, has no known liver disease. He does not have bleeding. Final diagnoses: Easy bruising Laceration of skin of right forearm, initial encounter Laceration Date/Time: 12/24/2021 15:43 Performed by: Marie Hernandez MD Authorized by: Marie Hernandez MD Consent: Verbal consent obtained. Risks and benefits: risks, benefits and alternatives were discussed Consent given by: patient Patient identity confirmed: verbally with patient Time out: Immediately prior to procedure a time out was called to verify the correct patient, procedure, equipment, cad application support specialist and site/side marked as required. Body area: upper extremity Location details: right lower arm Laceration length: 6.5 cm Foreign bodies: no foreign bodies Tendon involvement: none Nerve involvement: none Vascular damage: no Anesthesia: local infiltration Anesthesia: Local Anesthetic: lidocaine 2% with epinephrine Anesthetic total: 2 mL Preparation: Patient was prepped and draped in the usual sterile fashion. Irrigation solution: tap water Amount of cleaning: standard Debridement: none Skin closure: Ethilon Number of sutures: 8 Technique: simple Approximation: close Approximation difficulty: simple Dressing: antibiotic ointment, non-adhesive packing strip and gauze roll Patient tolerance: patient tolerated the procedure well with no immediate complications No results found for this visit on 12/24/21. Radiology orders: None Consult orders: None Imaging Results None No orders to display The patient is a 61 y.o. male who presents today with Laceration (right posterior FA lac, approx 6-7 cm, sustained today from a dumpster) Patient is a 61-year-old gentleman here for evaluation of a laceration on his right forearm. He wasdoing some work slipped and hit his arm along a metal dumpster today. The skin tore. His last tetanus shot was in 2019. Pain is controlled. Bleeding is controlled. He is here for repair. He incidentally notices that his skin bruises quite easily. He is not on blood thinners. He does not drink. He has no liver damage he is aware of. He lives in the [facility]. He is not taking any medications except for vitamins. The history is provided by the patient. Laceration Review of Systems Constitutional: Negative for activity change. Respiratory: Negative for shortness of breath. Musculoskeletal: Negative for arthralgias. Skin: Positive for color change and wound. Current Facility-Administered Medications Medication Dose Route Frequency Provider Last Rate Last Admin ??? lidocaine-EPINEPHrine 2 %-1:100,000 injection 3 mL 3 mL other Now Marie Hernandez MD ??? tetanus toxoid, reduced diphtheria toxoid, acellular pertussis vaccine (BOOSTRIX) IM injection 0.5 mL 0.5 mL intramuscular ONCE Marie Hernandez MD Current Outpatient Medications Medication Sig Dispense Refill ??? doxycycline (ADOXA) 100 mg tablet Take 100 mg by mouth 2 times daily. (Patient not taking: Reported on 06/04/2021) ??? MINERAL OIL/PETROLATUM,WHITE (TEARS AGAIN OPHTHALMIC) Apply to eye as needed. (Patient not taking: Reported on 12/24/2021) ??? Long Lane-3 Fatty Acids-Vitamin E (FISH OIL) 1,000 mg cap Take 2,000 mg by mouth daily. (Patient not taking: Reported on 12/24/2021) ??? VIT C/E/ZN/COPPR/LUTEIN/ZEAXAN (PRESERVISION AREDS 2 ORAL) Take by mouth. (Patient not taking: Reported on 12/24/2021) Allergies Allergen Reactions ??? Grass Pollen Shortness Of Breath and Other (See Comments) Eye redness, itching Patient Active Problem List Diagnosis Date Noted ??? Intermediate stage nonexudative age-related macular degeneration of both eyes 03/12/2021 ??? Pterygium of left eye 03/12/2021 ??? Nuclear sclerosis of both eyes 03/12/2021 ??? Lattice degeneration of retina, right eye 03/12/2021 ??? Retinal tear of right eye 03/12/2021 ??? PVD (posterior vitreous detachment), both eyes 01/18/2016 ??? Dry eye 02/17/2014 Past Medical History: Diagnosis Date ??? Cataract ??? Eye trauma nail in ?eye ??? Other states following surgery of eye and adnexa Social History Tobacco Use ??? Smoking status: Never Smoker ??? Smokeless tobacco: Never Used Substance Use Topics ??? Alcohol use: Not Currently Comment: very rare ??? Drug use: No Family History Problem Relation Age of Onset ??? Cancer Mother Brain tumor ??? Hypertension Mother ??? Diabetes Father ??? Hypertension Father ??? Macular Degeneration Father ??? Diabetes Sister ??? Kidney Disease Sister ??? Diabetes Paternal Grandmother ??? Glaucoma Neg Hx ??? Retinal Detachment Neg Hx BP 137/78 Pulse 66 Temp 98 ??F (36.7 ??C) (Temporal) Resp 16 SpO2 97% Physical Exam Vitals and nursing note reviewed. Constitutional: Appearance: Normal appearance. HENT: Head: Normocephalic. Cardiovascular: Rate and Rhythm: Normal rate. Musculoskeletal: Comments: He has good function in his distal arm. He can do A-OK, finger cross, finger separate, thumbs up. Good range of motion at the wrist. Good range of motion of the fingers. Normal range of motion at the elbow. Skin: Findings: Bruising present. Comments: He has a laceration on his right forearm. It is avulsed at 1 side. J- shaped. Through the dermis to the muscle. No deeper structure injury. Neurological: Mental Status: He is alert. PCP: UNKNOWN,PROVIDER No supervision required. Urgent Care Course A medical screening exam was performed. DISPOSITION: Discharged The patient's pain was managed to an adequate level weighing risk vs. benefit of further medications. Upon departure from [facility], the patient's pain was 0 on a zero to ten scale. Any further pain treatment will be at the discretion of the provider following up with the patient based on their clinical assessment . Condition at departure from the [facility] : Improved MDM 12/24/2021 15:37 * Lanre Alvares, RN - 12/24/2021 1509 EDT Tdap 08/2019 * Claudia Pardo RN - 12/24/2021 1319 EDT States vaccinated but not boosted for COVID. Negative COVID screen documented in this encounter Plan of Treatment Upcoming Encounters Date Type Department Care Team (Late st Contact Info) Description 05/27/2024 9:45 EDT Office Visit [facility] Ophthalmology - [address] [address] Yahir Cuevas MD [address] [place] [address], [address] [place] [phone] documented as of this encounter Procedures Procedure Name Priority Date/Time Associated Diagnosis Comments COMPLETE BLOOD COUNT AND DIFFERENTIAL STAT 12/24/2021 15:49 EDT Easy bruising LACERATION REPAIR Routine 12/24/2021 15: 43 EDT Laceration of skin of right forearm, initial encounter LACERATION REPAIR Routine 12/24/2021 15: 43 EDT Laceration of skin of right forearm, initial encounter documented in this encounter Results * (ABNORMAL) COMPLETE BLOOD COUNT AND DIFFERENTIAL (12/24/2021 15:49 EDT) WBC 11.01(H) 4.00 - 10.40 K/cmm 12/24/2021 17:18 EDT [facility] RBC 4.71 4.36 - 5.78 M/cmm 12/24/2021 17:18 [facility] Hemoglobin 15.1 13.8 - 17.3 gm/dL 12/24/2021 17:18 [facility] HCT 44.7 39.5 - 50.2 % 12/24/2021 17:18 [facility] MCV 95 81 - 95 fl 12/24/2021 17:18 [facility] MCH 32.1 27.6 - 33.0 pg 12/24/2021 17:18 [facility] MCHC 33.8 32.8 - 36.4 gm/dL 12/24/2021 17:18 [facility] RDW-CV 11.6 <14.2 % 12/24/2021 17:18 [facility] RDW-SD 40.1 <46.0 fl 12/24/2021 17:18 [facility] PLT 255 141 - 377 K/cmm 12/24/2021 17:18 [facility] MPV 9.4(L) 9.5 - 12.7 fl 12/24/2021 17:18 [facility] % Neutrophils 76.2 % 12/24/2021 17:18 [facility] % Lymphocytes 16.3 % 12/24/2021 17:18 [facility] % Monocytes 6.4 % 12/24/2021 17:18 [facility] % Eosinophils 0.4 % 12/24/2021 17:18 [facility] % Basophils 0.3 % 12/24/2021 17:18 [facility] % Immature Grans 0.4 % 12/25/19 17:18 [facility] Absolute Neutrophils 8.40 2.20 - 8.85 K/cmm 12/24/2021 17:18 [facility] Absolute Lymphocytes 1.80 1.09 - 3.30 K/cmm 12/24/2021 17:18 [facility] Absolute Monocytes 0.70 0.10 - 0.80 K/cmm 12/24/2021 17:18 EDT [facility] Absolute Eosinophils 0.04 0.03 - 0.61 K/cmm 12/24/2021 17:18 EDT [facility] ABS Basophils 0.03 0.01 - 0.11 K/cm 12/24/2021 17:18 EDT [facility] Absolute Immature Grans 0.04 0.00 - 0.06 K/cmm 12/24/2021 17:18 EDT [facility] Type of Differential: Auto 12/24/2021 17:18 EDT [facility] Blood VENOUS BLOOD / Unknown Venipuncture / Unknown 12/24/2021 15:49 EDT 12/24/2021 16:43 EDT Marie Hernandez MD PACKAGES & D NA PROBE ORDERABLES [facility] [address] [place] [address] * OR SMPL REPAIR SCALP/NECK/AX/GENIT/TRUNK 2.6-7.5CM, HC - BEDSIDE CODING WORKFLOW 2 (12/24/2021 15:43 EDT) Narrative [facility] - 12/24/2021 15:43 EDT Marie Hernandez MD ? 12/24/2021 15:55 Laceration Date/Time: 12/24/2021 15:43 Performed by: Marie Hernandez MD Authorized by: Marie Hernandez MD Consent: Verbal consent obtained. Risks and benefits: risks, benefits and alternatives were discussed Consent given by: patient Patient identity confirmed: verbally with patient Time out: Immediately prior to procedure a time out was called to verify the correct patient, procedure, equipment, cad application support specialist and site/side marked as required. Body area: upper extremity Location details: right lower arm Laceration length: 6.5 cm Foreign bodies: no foreign bodies Tendon involvement: none Nerve involvement: none Vascular damage: no Anesthesia: local infiltration Anesthesia: Local Anesthetic: lidocaine 2% with epinephrine Anesthetic total: 2 mL Preparation: Patient was prepped and draped in the usual sterile fashion. Irrigation solution: tap water Amount of cleaning: standard Debridement: none Skin closure: Ethilon Number of sutures: 8 Technique: simple Approximation: close Approximation difficulty: simple Dressing: antibiotic ointment, non-adhesive packing strip and gauze roll Patient tolerance: patient tolerated the procedure well with no immediate complications Marie Hernandez MD PROCEDURE/DC NOR SURGICAL ORDERABLES [facility] documented in this encounter Visit Diagnoses Diagnosis Laceration of skin of right forearm, initial encounter- Primary Easy bruising Other symptoms involving skin and integumentary tissues documented in this encounter Administered Medications Inactive Administered Medications - up to 3 most recent administrations Medication Order MAR Action Action Date Dose Rate Site lidocaine-EPINEPHrine 2 %-1:100,000 injection 3 mL 3 mL, other, NOW X1, 1 dose, On Thu12/24/21 at 1515, Routine Given 12/24/2021 15:50 EDT 3 mL tetanus toxoid, reduced diphtheria toxoid, acellular pertussis vaccine (BOOSTRIX) IM injection 0.5 mL 0.5 mL, intramuscular, Once (Without Time Specified), 1 dose, Starting on Thu12/24/21 at 1505, Until Thu12/24/21 at 1754, Routine documented in this encounter Active and Recently Administered Medications Times are shown in EDT. Scheduled Medication Order 12/22/2021 12/23/2021 12/24/2021 lidocaine-EPINEPHrine 2 %-1:100,000 injection 3 mL (COMPLETED) 3 mL, other, NOW X1, 1 dose, On Thu12/24/21 at 1515, Routine 1550 (Given - Provid er: Gómez Laughlin RN) tetanus toxoid, reduced diphtheria toxoid, acellular pertussis vaccine (BOOSTRIX) IM injection 0.5 mL 0.5 mL, intramuscular, Once (Without Time Specified), 1 dose, Starting on Thu12/24/21 at 1505, Until Thu12/24/21 at 1754, Routine documented in this encounter Orders Medications Ordered That Tu ht Not Have Been Administered Count Last Ordered Date First Ordered Date lidocaine-EPINEPHrine 2 %-1: 100,000 injection 3 mL 1 12/24/2021 tetanus toxoid, reduced diph theria toxoid, acellular pertussis vaccine (BOOSTRIX) IM injection 0.5 mL 1 12/24/2021 documented in this encounter Care Teams Mechanical Inspector Relationship Specialty Start Date End Date Unknown, Provider, PCP - General 10/25/21 05/18/23 documented as of this encounter
--- OUTSIDE RECORDS SUMMARY | 2024-03-24 14:32 | XMS_ITS | Continuity of Care Document ---
Author Organization [facility] Address [address] [place] [address] Care Team Providers Care Revenue Cycle Analyst Name Role Phone Yahir Andrews Primary Care Physician [facility] 06[facility]10/23 [facility] [address] [place] [address] Discharge Disposition: Home or Self Care Attending Physician: Yahir Andrews MD Admitting Physician: Yahir Andrews MD Referring Physician: Yahir Andrews MD Allergies, Adverse Reactions, Alerts No Known Medication Allergies Immunizations Given and Recorded Vaccine Date Status Refusal Reason SARS-CoV-2 (COVID-19) mRNA-1273 vaccine 11/29/20 R ecorded SARS-CoV-2 (COVID-19) mRNA-1273 vaccine 11/01/20 R ecorded tetanus/diphth/pertuss (Tdap) adult/adol 08/12/19 Recorded tetanus-diphth toxoids (Td) adult/adol 08/03/98 Re corded Problem List Condition Confirmation Course Effective Dates Status Health St atus Informant Dysfunction, bladder muscle Confirmed Active Impacted cerumen of right ear Confirmed Active Hernia, inguinal, unilateral Confirmed Active Large prostate Confirmed Active Procedures Procedure Date Related Diagnosis Body Site Status Colonoscopy 04/12/17 Completed Repair of inguinal hernia 02/17/17 Completed Vasectomy Completed Social History Social History Type Response Tobacco Never tobacco user T obacco Use:. Sex Male Patient Care team information Care Team Personnel Name: Yahir Andrews MD Position: No Access Member Role: Primary Care Physician Address: Address: [place] [address] [address]- Care Team Related Persons Name: ALMA RAMIREZ Address: Alternate [address] [place] [address] [facility] [id number] Address: Home [address] [facility] [id number]
--- OUTSIDE RECORDS SUMMARY | 2024-03-24 14:32 | XMS_ITS | Continuity of Care Document ---
Author Organization [facility] Address [address] [place] [address] Care Team Providers Care Nurse Unit Manager Name Role Phone [facility] Phys[facility] Encounter [facility] Date(s): 10/07/23 - 10/09/[address] [id number] Encounter Diagnosis BPH with obstruction/lower urinary tract symptoms(Discharge Diagnosis) - 10/07/23 Incomplete bladder emptying(Discharge Diagnosis) - 10/07/23 Gross hematuria(Discharge Diagnosis) - 10/07/23 Discharge Disposition: Home or Self Care Attending Physician: Vadim Simpson MD Admitting Physician: Vadim Simpson MD Referring Physician: Vadim Simpson MD Allergies, Adverse Reactions, Alerts No Known Medication Allergies Assessment and Plan Extracted from: Title:Discharge Note Author:Vadim Simpson MD Date:10/09/23 Discharge Plan 1.??BPH with obstruction/lower urinary tract symptoms??N40.1 2.??Incomplete bladder emptying??R33.9 3.??Gross hematuria??R31.0 Orders: acetaminophen 325 mg oral tablet, 650 mg = 2 tab, Oral, every 6 hr, PRN pain, mild, 0 Refill(s) Colace 100 mg oral capsule, 200 mg = 2 cap, Oral, BID, 0 Refill(s) ondansetron, 4 mg = 2 mL, IV Push, Soln, every 4 hr, PRN nausea/vomiting, First Dose: 10/07/23 13:20:00 EST, Routine zolpidem, 5 mg = 1 tab, Oral, Tab, every night at bedtime, PRN sleep, First Dose: 10/08/23 18:48:00 EST, Routine Discharge Patient, 10/09/23 16:24:00 EST, Home Independently, Constant Indicator Nursing Task, 10/09/23 8:07:00 EST, Stop date 10/09/23 8:07:00 EST Follow Up With When Contact Information Vadim Simpson MD 10/16/2023 08:00 AM EDT [facility] [address] [place], [place] [id number]- Additional Instructions: Postop visit. Extracted from: Title:Progress/SOAP Note Author:Vadim Simpson MD Date:10/09/23 1.??BPH with obstruction/lower urinary tract symptoms??N40.1 Status post TURP with early postoperative bleeding,??improving.?? Successful voiding trial.?? Improving anxiety. ??No clinically significant bleeding at present. ?? Activity restrictions were extensively reviewed.?? Discharge instructions were??reviewed. ?? Histopathology is pending at the time of discharge. 2.??Incomplete bladder emptying??R33.9 Improving. 3.??Gross hematuria??R31.0 Improving. Orders: acetaminophen 325 mg oral tablet, 650 mg = 2 tab, Oral, every 6 hr, PRN pain, mild, 0 Refill(s) Colace 100 mg oral capsule, 200 mg = 2 cap, Oral, BID, 0 Refill(s) ondansetron, 4 mg = 2 mL, IV Push, Soln, every 4 hr, PRN nausea/vomiting, First Dose: 10/07/23 13:20:00 EST, Routine zolpidem, 5 mg = 1 tab, Oral, Tab, every night at bedtime, PRN sleep, First Dose: 10/08/23 18:48:00 EST, Routine Discharge Patient, 10/09/23 16:24:00 EST, Home Independently, Constant Indicator Nursing Task, 10/09/23 8:07:00 EST, Stop date 10/09/23 8:07:00 EST Extracted from: Title:H & P Author:Vadim Simpson MD Date :10/07/23 1.??BPH with obstruction/low er urinary tract symptoms??N40.1 Refractory the??mixed irritative and obstructive lower urinary tract symptoms with incomplete bladder emptying secondary to intravesical prostate protrusion with ball-valve type anatomy.?? After discussion he is elected to proceed with TURP. ?? Alternatives, potential benefits and risks of transurethral resection of the prostate were discussed, including (but not limited to): anesthetic risk, bleeding, possible need for blood transfusion, infection, injury to the urethra, ureter, bladder or rectum, erectile dysfunction (10-15%), expectation for retrograde ejaculation, 1 in 1000 risk of stress urinary incontinence from injury to the external sphincter, 1 in 5 chance of a future need for surgery for recurrent obstruction from regrowth of tissue or (more likely) from scar tissue, temporary exacerbation of irritative symptoms which could include urge-induced incontinence. For those patients with primarily irritative symptoms, the goal is to reduce outlet obstruction to maximize flow and emptying, such that bladder relaxing medications (if necessary) can be used more safely and effectively than in the ongoing presence of obstruction. Irritative symptoms are much slower to improve and may take 6-9 months. Medication may be helpful during that time. Ultimately, about three quarters of these men resolve the irritative symptoms from surgery alone, and in the other one quarter these symptoms persist and may require detention medication treatment. All questions were answered and informed consent was obtained. He was instructed to hold aspirin, NSAID's, and/or other anti-platelet agents for one week prior. ? Questions were answered and informed consent was obtained. ? 2.??Incomplete bladder emptying??R33.9 As above. Orders: Dextrose 5% in Lactated Ringers Injection 1,000 mL, Total Volume (mL): 1,000, 1,000 mL, Soln-IV, IV, 30 mL/hr, Start Date: 10/07/23 9:49:00 EST, Populate Charting Weight From Order Lactated Ringers Injection 1,000 mL, Total Volume (mL): 1,000, 1,000 mL, Soln- IV, IV, 30 mL/hr, Start Date: 10/07/23 9:49:00 EST, Populate Charting Weight From Order lidocaine 2% topical gel with applicator, 1 ulisses, Transurethral, Gel, Once, First Dose: 10/07/23 11:00:00 EST, Stop Date: 10/07/23 11:00:00 EST, Physician Stop, Routine Bedrest with Bathroom Privileges, 10/07/23 9:49:00 EST, Once, 10/07/23 9:49:00 EST, 10/07/23 9:49:00 EST Obtain Surgical Consent, 10/07/23 9:49:00 EST, Transurethral resection of prostate Sequential Compression Devices (SCD's), 10/07/23 9:49:00 EST, Once, Knee High, 10/07/23 9:49:00 EST, 10/07/23 9:49:00 EST Surgical Pathology [facility], AP Specimen, Routine Collect, 10/07/23 10:47:00 EST, Once, Nurse collect, Print Label Future Appointments Diagnostic Tests Pending * Surgical Path[facility] 10/07/23 Functional Status 10/09/23 Assistive Device None Ambulation Patient Response patient walk ed to the bathroom. 10/08/23 Dinner Percent 100 10/08/23 Activity Status ADL Ambulating in lynn Ambulation Patient Effort Good 10/08/23 Living Environment No Living Environmen t Information Available Lives In Multilevel home Lives With Spouse Living Situation Home independently Home Barriers None Patient's Responsibilities Driving, Personal ADL Special Services and Community Resources None 10/08/23 Lunch Percent 100 10/08/23 Breakfast Percent 100 10/08/23 Personal Care Provided Linen change 10/07/23 Anti-Embolism Device Activity: Applied Anti-Embolism Site Condition: No complic ations 10/07/23 Recent Travel History No recent travel Other exposure to Infectious Disease Non e 10/07/23 ADLs Independent Immunizations Given and Recorded Vaccine Date Status [...] inguinal hernia 02/17/17 Completed Vasectomy Completed Results Laboratory List Name Date Basic Metabolic Panel (BMP) 10/08/23 CBC w/o Diff 10/08/23 SARS-CoV-2 (COVID-19) RNA (ID Now) 4 Most recent to oldest [Reference Range]: 1 WBC [5.0-10.0 x10^3/mcL] 11.0 x10^3/mcL *HI* (10/08/23 7:07 AM) RBC [4.6-6.0 x10^6/mcL] 4.4 x10^6/mcL *LOW* (10/08/23 7:07 AM) BUN [7-18 mg/dL] 7 mg/dL (10/08/23 7:07 AM) Glucose Level [74-106 mg/dL] 110 mg/dL *HI* (10/08/23 7:07 AM) Potassium Level [3.5-5.1 mmol/L] 4.0 mmo l/L (10/08/23 7:07 AM) MCV [80.0-96.0 fL] 93.4 fL (10/08/23 7:07 AM) MCHC [31.0-35.0 g/dL] 34.1 g/dL (10/08/23 7:07 AM) Sodium Level [136-145 mmol/L] 144 mmol/L (10/08/23 7:07 AM) Hct [41.0-51.0 %] 41.1 % (10/08/23 7:07 AM) Calcium Level [8.5-10.1 mg/dL] 8.5 mg/dL (10/08/23 7:07 AM) MCH [26.0-32.0 pg] 31.8 pg (10/08/23 7:07 AM) Hgb [14.0-18.0 g/dL] 14.0 g/dL (10/08/23 7:07 AM) Platelets [130-450 x10^3/mcL] 214 x10^3/ mcL (10/08/23 7:07 AM) CO2 [21-32 mmol/L] 31 mmol/L (10/08/23 7:07 AM) eGFR Non-AA [>=60] 91 (10/08/23 7:07 AM) eGFR AA [>=60] 91 (10/08/23 7:07 AM) Chloride Level [98-107 mmol/L] 108 mmol/ L *HI* (10/08/23 7:07 AM) RDW-CV [11.5-14.5 %] 11.9 % (10/08/23 7:07 AM) Creatinine Level [0.70-1.30 mg/dL] 0.94 mg/dL (10/08/23 7:07 AM) SARS-CoV-2 (COVID-19) RNA (ID Now) [Not Detected] Not Detected (10/07/23 10:10 AM) Vital Signs Most recent to oldest [Reference Range]: 1 2 3 Temperature Temporal Artery [36-38 Deg C] 35.9 Deg C *LOW* (10/09/23 11:57 AM) 36.8 Deg C (10/09/23 8:01 AM) 36.6 Deg C (10/09/23 4:21 AM) Temperature Temporal Artery (DegF) [97.3-100 Deg F] 96.62 Deg F *LOW* (10/07/23 1:25 PM) 97.34 Deg F (10/07/23 1:10 PM) Peripheral Pulse Rate [60-100 bpm] 84 bpm (10/09/23 11:57 AM) 80 bpm (10/09/23 8:01 AM) 55 bpm *LOW* (10/09/23 4:21 AM) Heart Rate Monitored [60-100 bpm] 63 bpm (10/07/23 1:55 PM) 71 bpm (10/07/23 1:40 PM) 77 bpm (10/07/23 1:25 PM) Respiratory Rate [12-24 br/min] 18 br/min (10/09/23 11:57 AM) 18 br/min (10/09/23 8:01 AM) 18 br/min (10/09/23 4:21 AM) Blood Pressure [90-140/60-90 mmHg] 139/76mmHg (10/09/23 11:57 AM) 123/68mmHg (10/09/23 8:01 AM) 123/83mmHg (10/09/23 4:21 AM) Mean Arterial Pressure, Cuff [65-140 mmHg] 94 mmHg (10/08/23 7:51 AM) 82 mmHg (10/08/23 4:45 AM) 83 mmHg (10/08/23 12:11 AM) Mean Arterial Pressure Cuff 96 mmHg (10/09/23 11:57 AM) 86 mmHg (10/09/23 8:01 AM) 95 mmHg (10/09/23 4:21 AM) Weight 74.6 kg (10/08/23 7:51 AM) 75.9 kg (10/07/23 2:37 PM) 72.6 kg (10/07/23 10:07 AM) Weight Dosing 72.600 kg (10/07/23 10:07 AM) Height 178 cm (10/07/23 10:07 AM) Body Mass Index 22.91 kg/m2 (10/07/23 10:07 AM) Body Mass Index Estimated 23.96 kg/m2 (10/07/23 2:37 PM) Height/Length Estimated 178 cm (10/07/23 2:37 PM) Social History Social History Type Response Tobacco Never tobacco user T obacco Use:. Sex Male Hospital Discharge Instructions Patient Education 10/09/2023 14:35:43 Transurethral Resection of the Prostate, Care After Transurethral Resection of the Prostate, Care After The following information offers guidance on how to care for yourself after your procedure. Your health care provider may also give you more specific instructions. If you have problems or questions, contact your health care provider. What can I expect after the procedure? After the procedure, it is common to have: ??? Mild pain in your lower abdomen. ??? Soreness or mild discomfort in your penis or when you urinate. This is from having the catheterinserted during the procedure. ??? A sudden urge to urinate (urgency). ??? A need to urinate often. ??? A small amount of blood in your urine. You may notice some small blood clots in your urine. These are normal. Follow these instructions at home: Medicines ??? Take qsqo-epd-qhqegws and prescription medicines only as told by your health care provider. ??? If you were prescribed an antibiotic medicine, take it as told by your health care provider. Donot stop taking the antibiotic even if you start to feel better. Activity ??? Rest as told by your health care provider. ??? Avoid sitting for a long time without moving. Get up to take short walks every 1???2 hours. This is important to improve blood flow and breathing. Ask for help if you feel weak or unsteady. You may increase your physical activity gradually as you start to feel better. ??? Do not drive or operate machinery until your health care provider says that it is safe. ??? Do not ride in a car for long periods of time, or as told by your health care provider. ??? Avoid intense physical activity for as long as told by your health care provider. ??? Do not lift anything that is heavier than 10 lb (4.5 kg), or the limit that you are told, untilyour health care provider says that it is safe. ??? Do not have sex until your health care provider approves. ??? Return to your normal activities as told by your health care provider. Ask your health care provider what activities are safe for you. Preventing constipation You may need to take these actions to prevent or treat constipation: ??? Drink enough fluid to keep your urine pale yellow. ??? Take tgdt-roj-bjhauue or prescription medicines. ??? Eat foods that are high in fiber, such as beans, whole grains, and fresh fruits and vegetables. ??? Limit foods that are high in fat and processed sugars, such as fried or sweet foods. General instructions ??? Do not strain when you have a bowel movement. Straining may lead to bleeding from the prostate.This may cause blood clots and trouble urinating. ??? Do not use any products that contain nicotine or tobacco. These products include cigarettes, chewing tobacco, and vaping devices, such as e-cigarettes. If you need help quitting, ask your health care provider. ??? If you go home with a tube draining your urine (urinary catheter), care for the catheter as told by your health care provider. ??? Wear compression stockings as told by your health care provider. These stockings help to prevent blood clots and reduce swelling in your legs. ??? Keep all follow-up visits. This is important. Contact a health care provider if: ??? You have signs of infection, such as: ??? Fever or chills. ??? Urine that smells very bad. ??? Swelling around your urethra that is getting worse. ??? Swelling in your penis or testicles. ??? You have difficulty urinating. ??? You have pain that gets worse or does not improve with medicine. ??? You have blood in your urine that does not go away after 1 week of resting and drinking more fluids. ??? You have trouble having a bowel movement. ??? You have trouble having or keeping an erection. ??? No semen comes out during orgasm (dry ejaculation). ??? You have a urinary catheter in place, and you have: ??? Spasms or pain. ??? Problems with your catheter or your catheter is blocked. Get help right away if: ??? You are unable to urinate. ??? You are having more blood clots in your urine instead of fewer. ??? You have: ??? Large blood clots. ??? A lot of blood in your urine. ??? Pain in your back or lower abdomen. ??? You have difficulty breathing or shortness of breath. ??? You develop swelling or pain in your leg. These symptoms may be an emergency. Get help right away. Call 911. ??? Do not wait to see if the symptoms will go away. ??? Do not drive yourself to the hospital. Summary ??? After the procedure, it is common to have a small amount of blood in your urine. ??? Follow restrictions about lifting and sexual activity as told by your health care provider. Askwhat activities are safe for you. ??? Keep all follow-up visits. This is important. This information is not intended to replace advice given to you by your health care provider. Make sure you discuss any questions you have with your health care provider. Document Revised: 04/15/2022 Document Reviewed: 04/15/2022 Elsevier Patient Education ?? 2022 [employer]. Follow Up Care 08/28/2023 09:41:40 With:Vadim [facility] MD [facility] [address] [place] [id number] When:10/16/2023 07:00:00 Comments:Postop visit. Discharge instructions * Flora Rodriguez: PERFORM Event Display: Discharge Instructions Authored Date: [id number] VIVEKOSMAR YESICA Mandi :1960 Age:62 years Sex:Male Visit Date:10/07/2023 Primary Care Physician: Sandy [facility], Yahir Trinidad MD Hospital Discharge Instructions We would like to thank you for allowing us to assist you with your healthcare needs. The following includes patient education materials and information regarding your injury/illness. Your Next Steps Instructions From Your Care Team Diet as tolerated. ??Okay to shower or bathe. ??No lifting above 15 or 20 pounds, bending, or straining for 4 weeks. ??No sexual activity for 6 weeks.?? Okay to drive short distances.?? Expect some blood in the urine, frequency, urgency, and burning.?? May use Tylenol or extra strength Tylenol as needed. ??Avoid blood thinners which include aspirin, ibuprofen,??Advil, Motrin, Aleve, and Naprosyn.?? May use jhoa-enz-jiiwujs phenazopyridine (Azo, 95 or 99 mg), 2 every 8 hours as needed for burning.?? Call for fever above 100.5, shaking chills,??increasing pain, difficulty voiding,??heavy bleeding, or other concerns.?? Office follow-up??in about??7 days.?? Dr. Simpson will call when biopsy results are available. Scheduled Future Appointments Thursday 8:00 AM EDT ?? With: Vadim Simpson MD [facility] [address] [place] [phone] Status: Confirmed Follow Up Appointments Follow Up with??Vadim Simpson MD When:??10/16/2023 08:00 AM EDT Why: Postop visit. Where: [facility] [address] [place] [phone]- The Following Services Have Been Arranged for You Anticipated ADL Needs - None Special Services and Community Resources - None Medications What How Much When Instructions Next Dose New acetaminophen (acetaminophen 325 mg oral tablet) 2 tab Oral (given by mouth) Every 6 hours as needed for pain, mild New docusate (Colace 100 mg oral capsule) 2 Capsules Oral (given by mouth) 2 times a day Unchanged multivitamin with minerals (PreserVision AREDS 2 oral capsule) 1 Capsules Oral (given by mouth) 2 times a day Unchanged omega-3 polyunsaturated fatty acids (Fish Oil oral capsule) 1 Capsules Oral (given by mouth) Every day ?? What How Much When Comments Stop Taking tamsulosin (tamsulosin 0.4 mg oral capsule) 2 Capsules Oral (given by mouth) Every night at bedtime Your Summary Your Care Team Admitting Physician - Vadim Simpson MD Attending Physician - Vadim Simpson MD Primary Care Physician - [facility], Yahir Trinidad MD Referring Physician - Vadim Simpson MD Your Diagnosis BPH with obstruction/lower urinary tract symptoms Incomplete bladder emptying Gross hematuria Problems Ongoing - Any problem that you are currently receiving treatment for. BPH with obstruction/lower urinary tract symptoms Hernia, inguinal, unilateral Impacted cerumen of right ear Osteoarthritis - hand joint Senile purpura Tests Performed/Pending BMP CBC w/o Diff SARS-CoV-2 (COVID-19) RNA (ID Now) Surgical Path[facility]?-- Results Pending -- Discharge Vitals Temperature??(Temporal Artery) 96.6 ??F (35.9 ??C) Heart Rate??(Peripheral) 84 Respiratory Rate?? 18 Blood Pressure?? 139/76?? SpO2?? 100% Allergies No Known Medication Allergies Education Materials Transurethral Resection of the Prostate, Care After The following information offers guidance on how to care for yourself after your procedure. Your health care provider may also give you more specific instructions. If you have problems or questions, contact your health care provider. What can I expect after the procedure? After the procedure, it is common to have: ? Mild pain in your lower abdomen. ? Soreness or mild discomfort in your penis or when you urinate. This is from having the catheter inserted during the procedure. ? A sudden urge to urinate (urgency). ? A need to urinate often. ? A small amount of blood in your urine. You may notice some small blood clots in your urine. These are normal. Follow these instructions at home: Medicines ? Take cvxt-hyg-fcnkasb and prescription medicines only as told by your health care provider. ? If you were prescribed an antibiotic medicine, take it as told by your health care provider. Do notstop taking the antibiotic even if you start to feel better. Activity ? Rest as told by your health care provider. ? Avoid sitting for a long time without moving. Get up to take short walks every 1???2 hours. This isimportant to improve blood flow and breathing. Ask for help if you feel weak or unsteady. You may increase your physical activity gradually as you start to feel better. ? Do not drive or operate machinery until your health care provider says that it is safe. ? Do not ride in a car for long periods of time, or as told by your health care provider. ? Avoid intense physical activity for as long as told by your health care provider. ? Do not lift anything that is heavier than 10 lb (4.5 kg), or the limit that you are told, until your health care provider says that it is safe. ? Do not have sex until your health care provider approves. ? Return to your normal activities as told by your health care provider. Ask your health care provider what activities are safe for you. Preventing constipation You may need to take these actions to prevent or treat constipation: ? Drink enough fluid to keep your urine pale yellow. ? Take ewop-guf-vkzazro or prescription medicines. ? Eat foods that are high in fiber, such as beans, whole grains, and fresh fruits and vegetables. ? Limit foods that are high in fat and processed sugars, such as fried or sweet foods. General instructions ? Do not strain when you have a bowel movement. Straining may lead to bleeding from the prostate. This may cause blood clots and trouble urinating. ? Do not use any products that contain nicotine or tobacco. These products include cigarettes, chewing tobacco, and vaping devices, such as e-cigarettes. If you need help quitting, ask your health careprovider. ? If you go home with a tube draining your urine (urinary catheter), care for the catheter as told byyour health care provider. ? Wear compression stockings as told by your health care provider. These stockings help to prevent blood clots and reduce swelling in your legs. ? Keep all follow-up visits. This is important. Contact a health care provider if: ? You have signs of infection, such as: ? Fever or chills. ? Urine that smells very bad. ? Swelling around your urethra that is getting worse. ? Swelling in your penis or testicles. ? You have difficulty urinating. ? You have pain that gets worse or does not improve with medicine. ? You have blood in your urine that does not go away after 1 week of resting and drinking more fluids. ? You have trouble having a bowel movement. ? You have trouble having or keeping an erection. ? No semen comes out during orgasm (dry ejaculation). ? You have a urinary catheter in place, and you have: ? Spasms or pain. ? Problems with your catheter or your catheter is blocked. Get help right away if: ? You are unable to urinate. ? You are having more blood clots in your urine instead of fewer. ? You have: ? Large blood clots. ? A lot of blood in your urine. ? Pain in your back or lower abdomen. ? You have difficulty breathing or shortness of breath. ? You develop swelling or pain in your leg. These symptoms may be an emergency. Get help right away. Call 911. ? Do not wait to see if the symptoms will go away. ? Do not drive yourself to the hospital. Summary ? After the procedure, it is common to have a small amount of blood in your urine. ? Follow restrictions about lifting and sexual activity as told by your health care provider. Ask what activities are safe for you. ? Keep all follow-up visits. This is important. This information is not intended to replace advice given to you by your health care provider. Make sure you discuss any questions you have with your health care provider. Document Revised: 04/15/2022 Document Reviewed: 04/15/2022 Elsevier Patient Education ?? 2022 Elsevier Inc. Patient/Resident Care Provider Signature Patient Name:YESICA RAMIREZ I have received this information and my questions have been answered. Patient/Resident Care Provider Name: Patient/Resident Care Provider Signature: Relationship to Patient: Witness Name/Signature: Date: Electronically Signed on: 10/09/2023 16:55 ESTSigned by:GREG Pharmacology Progress note * Elizabeth Clements PharmD: PERFORM Event Display: Pharmacy Progress Note Authored Date: [id number] Pharmacy Progress Note Med list updated with [facility] in [place] and [facility] records Electronically Signed on 10/06/23 02:41 PM Elizabeth Clements PharmD Progress note * Vadim Simpson MD: PERFORM Event Display: Progress Note - Physician Authored Date: [id number] YESICA RAMIREZ :1960 Age:62 years Sex:Male Visit Date:10/07/2023 Primary Care Physician: Sandy [facility], Yahir Trinidad MD Subjective Patient continues to void with improved flow. ??Last void had the appearance of apple juice and last PVR was only 60 cc. ??Subjectively feels he is doing better.?? Would like to go home. Objective Vitals & Measurements T:??35.9?C ??(Temporal Artery)?? TMIN:??35.9?C ??(Temporal Artery)?? TMAX:??36.8?C ??(Temporal Artery)?? HR:??84??(Peripheral)?? RR:??18?? BP:??139/76?? SpO2:??100%?? Pain Score:??0?? O2 Therapy:??Room air?? Physical Exam Well-appearing, ambulatory. ?? at bedside. ?? Formal exam not performed. Assessment/Plan 1.??BPH with obstruction/lower urinary tract symptoms??N40.1 Status post TURP with early postoperative bleeding,??improving.?? Successful voiding trial.?? Improving anxiety. ??No clinically significant bleeding at present. ?? Activity restrictions were extensively reviewed.?? Discharge instructions were??reviewed. ?? Histopathology is pending at the time of discharge. 2.??Incomplete bladder emptying??R33.9 Improving. 3.??Gross hematuria??R31.0 Improving. Orders: acetaminophen 325 mg oral tablet, 650 mg = 2 tab, Oral, every 6 hr, PRN pain, mild, 0 Refill(s) Colace 100 mg oral capsule, 200 mg = 2 cap, Oral, BID, 0 Refill(s) ondansetron, 4 mg = 2 mL, IV Push, Soln, every 4 hr, PRN nausea/vomiting, First Dose: 10/07/23 13:20:00 EST, Routine zolpidem, 5 mg = 1 tab, Oral, Tab, every night at bedtime, PRN sleep, First Dose: 10/08/23 18:48:00EST, Routine Discharge Patient, 10/09/23 16:24:00 EST, Home Independently, Constant Indicator Nursing Task, 10/09/23 8:07:00 EST, Stop date 10/09/23 8:07:00 EST Electronically Signed on 10/09/23 04:27 PM Vadim Simpson MD * Vadim Simpson MD: PERFORM Event Display: Progress Note - Physician Authored Date: [id number] SANDRITAMarcelloYESICA :1960 Age:62 years Sex:Male Visit Date:10/07/2023 Primary Care Physician: Sandy [facility], Yahir Trinidad MD Subjective Patient initially had severe dysuria and passed clots with very small amounts of urine with residuals as high as 300+ cc.?? I came up to discuss replacing the catheter. ??However, just prior to my arrival, he had a substantial void??with a residual of about 160.?? He felt much more comfortable. ??Isuspect he had an accumulation of clots in the prostatic fossa??which??are being evacuated.?? He went from quite uncomfortable to quite comfortable??and less anxious. ??He did receive lorazepam earlier today for the voiding trial.?? The urine was quite dark, maroon-colored suggestive of older blood.? Given the improvement on his most recent void, I decided to continue the voiding trial without??intervening.?? On my return, he voided??an additional 2 times,??about 100 to 250 cc each time,??with the last urine Pyridium stained without much blood and with no clots.?? Last PVR was about 178 cc.?? He continues to feel??much better,??and states??that he moved his bowels (before receiving MiraLAX) and he believes that helped as well. ?? We will await 1 final void??and I will check back shortly??in hopes of discharge. Objective Vitals & Measurements T:??35.9?C ??(Temporal Artery)?? TMIN:??35.9?C ??(Temporal Artery)?? TMAX:??36.8?C ??(Temporal Artery)?? HR:??84??(Peripheral)?? RR:??18?? BP:??139/76?? SpO2:??100%?? Pain Score:??0?? O2 Therapy:??Room air?? Physical Exam Alert, more relaxed. ?? Abdomen mildly distended,??soft and nontender. ?? Urine??samples show progressive clearing to mostly Pyridium stained??on the most recent sample. Assessment/Plan 1.??BPH with obstruction/lower urinary tract symptoms??N40.1 Status post TURP complicated by postoperative bleeding after Toradol in the PACU. ??Improving. 2.??Incomplete bladder emptying??R33.9 Incomplete bladder emptying, likely multifactorial. ??He may have some obstructive clots in the fossa. ??Anxiety may be leading to some degree of pelvic floor dysfunction.?? Will follow. 3.??Gross hematuria??R31.0 I think we are seeing mostly old blood at this point with clots that likely??filled the prostatic fossa. ??Will follow. Orders: zolpidem, 5 mg = 1 tab, Oral, Tab, every night at bedtime, PRN sleep, First Dose: 10/08/23 18:48:00EST, Routine Bladder Scan, 10/09/23 8:07:00 EST, Stop date 10/09/23 8:07:00 EST, after each void, 10/09/23 8:07:00 EST Nursing Task, 10/09/23 8:07:00 EST, Stop date 10/09/23 8:07:00 EST Electronically Signed on 10/09/23 02:46 PM Vadim Simpson MD * Vadim Simpson MD: PERFORM, MODIFY Event Display: Progress Note - Physician Authored Date: [id number] VIVEKOSMARYESICA :1960 Age:62 years Sex:Male Visit Date:10/07/2023 Primary Care Physician: Sandy [facility], Yahir Trinidad MD Subjective Better night.?? Still no BM and stressing about.?? No fevers, chills, nausea, vomiting, chest??painof SOB.?? Vitals stable.?? Objective Vitals & Measurements T:??36.8?C ??(Temporal Artery)?? TMIN:??36.4?C ??(Temporal Artery)?? TMAX:??36.8?C ??(Temporal Artery)?? HR:??80??(Peripheral)?? RR:??18?? BP:??123/68?? SpO2:??93%?? Pain Score:??0?? O2 Therapy:??Room air?? Physical Exam Alert, appears anxious. Abd non-distended. Urine on minimal CBI is clear in the tubing, light pink in the bag. Assessment/Plan 1.??BPH with obstruction/lower urinary tract symptoms??N40.1 s/p TURP, ready for voiding trial.?? D/C CBI, phenazopyridine, void trial with rack and record and PVR scans.?? Miralax for BM.?? Anxiolytic encouraged. 2.??Incomplete bladder emptying??R33.9 3.??Gross hematuria??R31.0 Resolving. Orders: phenazopyridine, 190 mg = 2 tab, Oral, Tab, Once, First Dose: 10/09/23 8:05:00 EST, Stop Date: 10/09/23 8:05:00 EST, Physician Stop, NOW zolpidem, 5 mg = 1 tab, Oral, Tab, every night at bedtime, PRN sleep, First Dose: 10/08/23 18:48:00EST, Routine Bladder Scan, 10/09/23 8:07:00 EST, Stop date 10/09/23 8:07:00 EST, after each void, 10/09/23 8:07:00 EST Diet Order, 10/08/23 10:14:00 EST, Regular Start Meal: Now Nursing Task, 10/09/23 8:07:00 EST, Stop date 10/09/23 8:07:00 EST Saline Lock Convert From IV, 10/08/23 8:24:00 EST, Stop date 10/08/23 8:24:00 EST Urinary Catheter Discontinue, 10/09/23 8:06:00 EST Electronically Signed on 10/09/23 08:15 AM Vadim Simpson MD History and physical note * Vadim Simpson MD: PERFORM Event Display: History and Physical Authored Date: [id number] YESICA RAMIREZ :1960 Age:62 years Sex:Male Visit Date:10/07/2023 Primary Care Physician: Sandy [facility], Yahir Trinidad MD Chief Complaint TURP. History of Present Illness Mr. Ramirez is a pleasant 62-year-old gentleman with severe,??refractory mixed obstructive and irritative lower urinary tract symptoms and incomplete bladder emptying,??who has failed pharmacologic therapy.?? Cystoscopy showed??some obstructive tissue near the apex bilaterally??and an intravesical p rotrusion??with ball-valve type potential. ??He was advised to consider TURP. ?? See note from last evening regarding his most recent concerns. ?? He presents today for TURP. Review of Systems Interval review of systems is negative. Physical Exam Vitals & Measurements T:??37.2?C ??(Temporal Artery)?? HR:??75??(Monitored)?? RR:??18?? BP:??144/93?? SpO2:??98%?? HT:??178??cm?? WT:??72.6??kg?? BMI:??22.91?? Pain Score:??0?? Well-appearing male no distress. ?? HEENT normal. ?? Respirations are unlabored. ?? Abdomen is non-distended, soft and non-tender. ?? Genital and rectal exams are not repeated. ?? Lower extremities show no significant edema. ?? Neuro grossly intact. Assessment/Plan 1.??BPH with obstruction/lower urinary tract symptoms??N40.1 Refractory the??mixed irritative and obstructive lower urinary tract symptoms with incomplete bladder emptying secondary to intravesical prostate protrusion with ball-valve type anatomy.?? After discussion he is elected to proceed with TURP. ?? Alternatives, potential benefits and risks of transurethral resection of the prostate were discussed, including (but not limited to): anesthetic risk, bleeding, possible need for blood transfusion, infection, injury to the urethra, ureter, bladder or rectum, erectile dysfunction (10-15%), expectation for retrograde ejaculation, 1 in 1000 risk of stress urinary incontinence from injury to the external sphincter, 1 in 5 chance of a future need for surgery for recurrent obstruction from regrowth of tissue or (more likely) from scar tissue, temporary exacerbation of irritative symptoms which could include urge-induced incontinence. For those patients with primarily irritative symptoms, the goalis to reduce outlet obstruction to maximize flow and emptying, such that bladder relaxing medications (if necessary) can be used more safely and effectively than in the ongoing presence of obstruction. Irritative symptoms are much slower to improve and may take 6-9 months. Medication may be helpfulduring that time. Ultimately, about three quarters of these men resolve the irritative symptoms from surgery alone, and in the other one quarter these symptoms persist and may require detention medication treatment. All questions were answered and informed consent was obtained. He was instructed tohold aspirin, NSAID's, and/or other anti-platelet agents for one week prior. ?? Questions were answered and informed consent was obtained. 2.??Incomplete bladder emptying??R33.9 As above. Orders: Dextrose 5% in Lactated Ringers Injection 1,000 mL, Total Volume (mL): 1,000, 1,000 mL, Soln-IV, IV, 30 mL/hr, Start Date: 10/07/23 9:49:00 EST, Populate Charting Weight From Order Lactated Ringers Injection 1,000 mL, Total Volume (mL): 1,000, 1,000 mL, Soln- IV, IV, 30 mL/hr, Start Date: 10/07/23 9:49:00 EST, Populate Charting Weight From Order lidocaine 2% topical gel with applicator, 1 ulisses, Transurethral, Gel, Once, First Dose: 10/07/23 11:00:00 EST, Stop Date: 10/07/23 11:00:00 EST, Physician Stop, Routine Bedrest with Bathroom Privileges, 10/07/23 9:49:00 EST, Once, 10/07/23 9:49:00 EST, 10/07/23 9:49:00 EST Obtain Surgical Consent, 10/07/23 9:49:00 EST, Transurethral resection of prostate Sequential Compression Devices (SCD's), 10/07/23 9:49:00 EST, Once, Knee High, 10/07/23 9:49:00 EST, 10/07/23 9:49:00 EST Surgical Pathology [facility], AP Specimen, Routine Collect, 10/07/23 10:47:00 EST, Once, Nurse collect, Print Label Problem List/Past Medical History Ongoing BPH with obstruction/lower urinary tract symptoms Hernia, inguinal, unilateral Impacted cerumen of right ear Osteoarthritis - hand joint Senile purpura Historical No qualifying data Procedure/Surgical History ???Colonoscopy (04/13/2017)???Repair of inguinal hernia (02/18/2017)???Vasectomy Medications Inpatient Dextrose 5% in Lactated Ringers Injection 1,000 mL, 1000 mL, IV Lactated Ringers Injection 1,000 mL, 1000 mL, IV lidocaine 1% injectable solution, 1 mg= 0.1 mL, Intradermal, As Directed, PRN lidocaine 2% topical gel with applicator, 1 ulisses, Transurethral, Once Home Fish Oil oral capsule, 1 cap, Oral, Daily PreserVision AREDS 2 oral capsule, 1 cap, Oral, BID tamsulosin 0.4 mg oral capsule, 0.8 mg= 2 cap, Oral, every night at bedtime Allergies No Known Medication Allergies Social History Alcohol Current, 1-2 times per month Electronic Cigarette/Vaping Electronic Cigarette Use: Never. Substance Use Never Tobacco Never tobacco user Tobacco Use:. Immunizations Vaccine Date Status SARS-CoV-2 (COVID-19) mRNA-1273 vaccine 11/29/2020 Recorded SARS-CoV-2 (COVID-19) mRNA-1273 vaccine 11/01/2020 Recorded tetanus/diphth/pertuss (Tdap) adult/adol 08/12/2019 Recorded tetanus-diphth toxoids (Td) adult/adol 08/03/1998 Recorded Lab Results Test Name Test Result Date/Time SARS-CoV-2 (COVID-19) RNA (ID Now) Not Detected 10/07/2023 10:10 EST Electronically Signed on 10/07/23 11:05 AM Vadim Simpson MD Discharge summary * Vadim Simpson MD: PERFORM Event Display: Discharge Summary Authored Date: [id number] YESICA RAMIREZ :1960 Age:62 years Sex:Male Visit Date:10/07/2023 Primary Care Physician: Sandy Yahir SANDRA MD Admission Information Date of Admission: 10/07/2023 Date of Discharge: 10/09/2023 ?? Admitting Physician: Vadim Simpson M.D., Urology ?? Admitting Diagnoses:?? BPH with bladder outlet obstruction; anxiety Discharge Diagnoses: Same??plus gross hematuria ?? Procedures during hospitalization: Transurethral resection of the prostate on 10/07/2023 Hospital Course Patient was admitted and expressed some ambivalence and anxiety about proceeding with TURP on the morning of the procedure, despite a conversation around 9:00 the night before??by phone. ??Ultimately, he decided to proceed. ?? His surgery was uneventful and his urine was clear in the recovery room. ?? He received a dose of ketorolac for pain control which had been ordered??in a set of anesthesia standing orders??and the nurse gave it before realizing that it is relatively contraindicated for this type of surgery. ?? Temporarily related but possibly could incidentally, he developed very significant gross hematuria requiring??vigorous CBI??for the first 24 hours. ??The negative surgery he required hand irrigation on 4 occasions.?? The appearance of the hematuria look like there was some vascular spasm intermitten tly.?? He remained hemodynamically stable and his hemoglobin on postop day #1 was 14. ?? He??appeared extremely anxious throughout the??entirety of the hospitalization until postop day #2 when he accepted a lorazepam tablet for his voiding trial. ?? CBI was slowed down on postop afternoon #1; however, with ambulation and an attempted a bowel movement, the urine became more grossly bloody and the CBI was turned back up. ??We decided to observe him overnight in consideration of a voiding trial on postoperative morning #2. ?? He did well overnight. ??The urine progressively cleared. ??He continued to have some penile discomfort.?? He was unsuccessful at moving his bowels.?? His catheter was removed after receiving phenazopyridine. ?? Initially he had difficulty voiding, passing numerous clots and small frequent urinary??volumes with residuals as high as 300+ cc.?? In fact, I thought he was going to need to have the catheter replaced. ??However, when I went to have that conversation with him, he had just voided a large volume without clots and his PVR was??down to about 150 cc. ??He voided progressively better thereafter,??with clearing urine Pyridium stained, no further clots, less discomfort, and a much more comfortable bladder.?? The last residual before hospital discharge was only 60 cc in the urine had an apple juice color to it. ?? He was discharged home at this point in satisfactory condition. ?? At the time of discharge, histopathology from the??prostate??is pending.?? There was a??left??base prostate nodule noted on ESPERANZA which was not documented at his initial consultation visit and will need to be??addressed??after the histopathology is received. ?? Medications at discharge:??Same as on admission but discontinue tamsulosin and add phenazopyridine as needed. ??Avoid blood thinners. ?? Instructions:??No heavy lifting, bending, or straining for 4 weeks. ??No sexual activity for 6 weeks. ??Expect some blood in the urine, urgency, frequency,??burning,??and dysuria.?? Call or return for fever above 100.5, shaking chills,??increasing pain, heavy bleeding, difficulty voiding, or other c oncerns. ?? Follow-up:??Office visit 10/16/2023. ??Await histopathology.?? Potential further evaluation for prostate nodule??thereafter. Physical Exam Vitals & Measurements T:??35.9?C ??(Temporal Artery)?? TMIN:??35.9?C ??(Temporal Artery)?? TMAX:??36.8?C ??(Temporal Artery)?? HR:??84??(Peripheral)?? RR:??18?? BP:??139/76?? SpO2:??100%?? Pain Score:??0?? O2 Therapy:??Room air?? Procedure/Surgical History ???Colonoscopy (04/13/2017)???Repair of inguinal hernia (02/18/2017)???Vasectomy Social History Alcohol Current, 1-2 times per month Electronic Cigarette/Vaping Electronic Cigarette Use: Never. Substance Use Never Tobacco Never tobacco user Tobacco Use:. Discharge Plan 1.??BPH with obstruction/lower urinary tract symptoms??N40.1 2.??Incomplete bladder emptying??R33.9 3.??Gross hematuria??R31.0 Orders: acetaminophen 325 mg oral tablet, 650 mg = 2 tab, Oral, every 6 hr, PRN pain, mild, 0 Refill(s) Colace 100 mg oral capsule, 200 mg = 2 cap, Oral, BID, 0 Refill(s) ondansetron, 4 mg = 2 mL, IV Push, Soln, every 4 hr, PRN nausea/vomiting, First Dose: 10/07/23 13:20:00 EST, Routine zolpidem, 5 mg = 1 tab, Oral, Tab, every night at bedtime, PRN sleep, First Dose: 10/08/23 18:48:00EST, Routine Discharge Patient, 10/09/23 16:24:00 EST, Home Independently, Constant Indicator Nursing Task, 10/09/23 8:07:00 EST, Stop date 10/09/23 8:07:00 EST All Diagnoses This Visit BPH with obstruction/lower urinary tract symptoms Incomplete bladder emptying Gross hematuria Patient Instructions Diet as tolerated. ??Okay to shower or bathe. ??No lifting above 15 or 20 pounds, bending, or straining for 4 weeks. ??No sexual activity for 6 weeks.?? Okay to drive short distances.?? Expect some blood in the urine, frequency, urgency, and burning.?? May use Tylenol or extra strength Tylenol as needed. ??Avoid blood thinners which include aspirin, ibuprofen,??Advil, Motrin, Aleve, and Naprosyn.?? May use [id number] phenazopyridine (Azo, 95 or 99 mg), 2 every 8 hours as needed for burning.?? Call for fever above 100.5, shaking chills,??increasing pain, difficulty voiding,??heavy bleeding, or other concerns.?? Office follow-up??in about??7 days.?? Dr. Simpson will call when biopsy results are available. Patient Education Transurethral Resection of the Prostate, Care After Follow Up With When Contact Information Vadim Simpson MD 10/16/2023 08:00 AM EDT [facility] [address] [place] [phone] Additional Instructions: Postop visit. Medication Reconciliation New Prescription acetaminophen (acetaminophen 325 mg oral tablet)2 tab Oral (given by mouth) every 6 hours as neededpain, mild. ?? docusate (Colace 100 mg oral capsule)2 Capsules Oral (given by mouth) 2 times a day. ?? Unchanged multivitamin with minerals (PreserVision AREDS 2 oral capsule)1 Capsules Oral (given by mouth) 2 times a day. ?? omega-3 polyunsaturated fatty acids (Fish Oil oral capsule)1 Capsules Oral (given by mouth) every day. ?? Discontinued tamsulosin (tamsulosin 0.4 mg oral capsule)2 Capsules Oral (given by mouth) every night at bedtime. Electronically Signed on 10/09/23 04:37 PM Vadim Simpson MD Patient Care team information Care Team Personnel Name: Sandy [facility], Yahir Trinidad MD Position: No Access Member Role: Informed Provider Address: Address: [address] Care Team Related Persons Name: ALMA RAMIREZ Address: [address] [id number] Address: [address] [id number]
--- OUTSIDE RECORDS SUMMARY | 2024-03-24 14:32 | XMS_ITS | Continuity of Care Document ---
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 Name Role Phone Yahir Andrews Primary Care Physician Encounter [facility] Date(s): 03/26/23 - 03/26/[address] [address] Discharge Disposition: Home or Self Care Attending [...] Laboratory List Name Date Basic Metabolic Panel 03/26/23 CBC w/ Diff 03/26/23 Lipid Panel 03/26/23 PSA Screen 03/26/23 Automated Diff 03/26/23 Most recent to oldest [Reference Range]: 1 WBC [5.0-10.0 x10^3/mcL] 7.0 x10^3/mcL (03/26/23 7:35 AM) RBC [4.6-6.0 x10^6/mcL] 4.9 x10^6/mcL (03/26/23 7:35 AM) Neutro Auto [40.0-75.0 %] 56.1 % (03/26/23 7:35 AM) Lymph Auto [20.0-50.0 %] 33.9 % (03/26/23 7:35 AM) Drew Auto [2.0-15.0 %] 6.7 % (03/26/23 7:35 AM) Basophil Auto [0.0-1.0 %] 0.6 % (03/26/23 7:35 AM) BUN [7-18 mg/dL] 19 mg/dL *HI* (03/26/23 7:35 AM) Cholesterol Total [50-200 mg/dL] 214 mg/ dL *HI* (03/26/23 7:35 AM) LDL [0-130 mg/dL] 108 mg/dL (03/26/23 7:35 AM) Glucose Level [74-106 mg/dL] 117 mg/dL *HI* (03/26/23 7:35 AM) Potassium Level [3.5-5.1 mmol/L] 3.7 mmo l/L (03/26/23 7:35 AM) MCV [80.0-96.0 fL] 94.7 fL (03/26/23 7:35 AM) HDL [40-60 mg/dL] 88 mg/dL *HI* (03/26/23 7:35 AM) MCHC [31.0-35.0 g/dL] 33.3 g/dL (03/26/23 7:35 AM) Sodium Level [136-145 mmol/L] 140 mmol/L (03/26/23 7:35 AM) Hct [41.0-51.0 %] 46.2 % (03/26/23 7:35 AM) Triglycerides [0-150 mg/dL] 88 mg/dL (03/26/23 7:35 AM) Calcium Level [8.5-10.1 mg/dL] 8.5 mg/dL (03/26/23 7:35 AM) MCH [26.0-32.0 pg] 31.6 pg (03/26/23 7:35 AM) Neutro Absolute 4.0 x10^3/mcL *NA* (03/26/23 7:35 AM) Hgb [14.0-18.0 g/dL] 15.4 g/dL (03/26/23 7:35 AM) Platelets [130-450 x10^3/mcL] 269 x10^3/ mcL (03/26/23 7:35 AM) CO2 [21-32 mmol/L] 29 mmol/L (03/26/23 7:35 AM) eGFR Non-AA [>=60] 80 (03/26/23 7:35 AM) eGFR AA [>=60] 80 (03/26/23 7:35 AM) Chloride Level [98-107 mmol/L] 105 mmol/ L (03/26/23 7:35 AM) RDW-CV [11.5-14.5 %] 11.7 % (03/26/23 7:35 AM) Imm Gran Auto [0.0-0.9 %] 0.4 % (03/26/23 7:35 AM) Creatinine Level [0.70-1.30 mg/dL] 1.04 mg/dL (03/26/23 7:35 AM) PSA Total Screening [0.00-4.00 ng/mL] 3. 14 ng/mL 1 (03/26/23 7:35 AM) Eos, Auto [1.0-6.0 %] 2.3 % (03/26/23 7:35 AM) 1Interpretive Data: The testing method is an heterogeneous enzyme Immunoassay manufactured by [employer] and performed on the shopandsave system. Values obtained with different assay methods or kits may be different and cannot be used interchangeably. Test results cannot be interpreted as absolute evidence for the presence or absence of malignant disease. Social History Social History Type Response Tobacco Never tobacco user T obacco Use:. Sex Male Patient Care team information Care Team Personnel Name: Yahir Andrews MD Position: No Access Member Role: Primary Care Physician Address: Address: [address] Care Team Related Persons Name: ALMA RAMIREZ Address: [address] [facility], [id number] Address: [address] [facility], [id number]
--- OUTSIDE RECORDS SUMMARY | 2024-03-24 14:32 | XMS_ITS | Continuity of Care Document ---
Author Organization [facility] Address [address] [place] [address] [facility] - 03/10/23 [facility] [address] [place] [address] Discharge Disposition: Home or Self Care Attending Physician: Brigette Cobos PA-C Admitting Physician: Brigette Cobos PA-C Allergies, Adverse Reactions, Alerts No Known Medication [...] Vasectomy Completed Results Laboratory List Name Date Urinalysis Microscopic 03/10/23 Urinalysis with Microscopic 03/10/23 Most recent to oldest [Reference Range]: 1 UA Color Yellow (03/10/23 3:27 PM) UA WBC [0-3] 0-3 (03/10/23 3:27 PM) UA Urobilinogen Positive *ABN* (03/10/23 3:27 PM) UA Bili [Negative] Negative (03/10/23 3:27 PM) UA Ketones Trace *ABN* (03/10/23 3:27 PM) UA RBC [0-2] 0-2 (03/10/23 3:27 PM) UA Leuk Est Negative (03/10/23 3:27 PM) UA Nitrite Negative (03/10/23 3:27 PM) UA Glucose [Negative] Negative (03/10/23 3:27 PM) UA Bacteria Rare /HPF (03/10/23 3:27 PM) UA Protein Negative (03/10/23 3:27 PM) UA Blood 1+ *ABN* (03/10/23 3:27 PM) UA Mucous None Seen /HPF (03/10/23 3:27 PM) UA Spec Grav 1.025 *NA* (03/10/23 3:27 PM) UA Squam Epithelial [None Seen] None See n (03/10/23 3:27 PM) UA pH 6.0 *NA* (03/10/23 3:27 PM) UA Appear Clear (03/10/23 3:27 PM) UA Culture Ind?. Not Applicable (03/10/23 3:27 PM) Orders for Microbiology Reports Name Date Urine Culture 03/10/23 Microbiology Reports TEST:Urine Culture STATUS:Order in Progress BODY SITE: SOURCE:Urine, Clean Catch COLLECTED DATE/TIME:03/10/23 3:27 PM PRELIMINARY REPORT <10,000 cfu/ml Gram Negative Bacilli Social History Social History Type Response Tobacco Never tobacco user T obacco Use:. Sex Male
--- OUTSIDE RECORDS SUMMARY | 2024-03-24 14:33 | XMS_ITS | Encounter Summary ---
Author Organization [facility] Address [address] [place] [id number] Care Team Providers Care Drawbench Operator Name Role Phone Nia Molina NP Primary Care Provider Reason for Referral * Radiology Services (Routine) - Closed Specialty Diagnoses / Procedures Referred By Brennan dawson Referred To Contact Diagnoses Arthritis of carpometacarpal (CMC) joint of left thumb Procedures FL GUIDED LOCALIZATION, ASPIRATION, INJECTION, BIOPSY US GUIDED INJECTION OR ASPIRATON ANY SITE Mesha Powell PA-C [address] [place] [phone] Referral ID Status Reason Start Date Expiration Date Visits Re quested Visits Authorized [id number] Closed 10/02/2020 1 1 Reason for Visit * Radiology Services (Routine) - Closed Specialty Diagnoses / Procedures Referred By Brennan dawson Referred To Contact Diagnoses Arthritis of carpometacarpal (CMC) joint of left thumb Procedures FL GUIDED LOCALIZATION, ASPIRATION, INJECTION, BIOPSY US GUIDED INJECTION OR ASPIRATON ANY SITE Mesha Powell PA-C [address] [place] [phone] Referral ID Status Reason Start Date Expiration Date Visits Re quested Visits Authorized [id number] Closed 10/02/2020 1 1 Encounter Details Date Type Department Care Team (Latest Contact Info) Description 10/23/2020 12:36 EDT - 10/23/2020 23:59 EDT [facility] Rad[facility] Fluoroscopy - [address] [id number] Arthritis of carpometacarpal (CMC) joint of left thumb Discharge Disposition: Home or Self Care Social [...] 15:47 EST Sexual Orientation Not on file COVID-19 Exposure Response Date Recorded In the last month, have you been in contact with someone who was confirmed or suspected to have Coronavirus / COVID-19? No / Unsure 10/23/2020 12:32 EDT documented as of this encounter Medications at Time of Discharge Medication Sig Dispensed Refills Start Date End Date MINERAL OIL/PETROLATUM,WHITE (TEARS AGAIN OPHTHALMIC) Apply to eye as needed. [place]-3 Fatty Acids-Vitamin E 1,000 mg capsule Take 2,000 mg by mouth daily. VIT C/E/ZN/COPPR/LUTEIN/ZEAXA N (PRESERVISION AREDS 2 ORAL) Take by mouth. ibuprofen (ADVIL) 200 mg tablet Take 200 mg by mouth every 6 hours as needed. 10/25/2021 Vit A,C,F-Jmyi-Cuyivs (ICAPS AREDS) capsule Take 1 Cap by mouth daily. 10/25/2021 documented as of this encounter Discharge Disposition Disposition Code Departure Means Destination Home or Self Care documented in this encounter Progress Notes * Hannah Betts, JERROD - 10/23/2020 1300 EDT Telephone call made to Kirt Mora regarding upcoming appointment for Fluoroscopy guided jointinjection on 10/23 @ 1300 at the [facility]. Patient was not available so I left a voicemail reviewing the following instructions:. Check in to Registration 30 minutes prior to exam time @ 1230. Patient advised to hold any OTC NSAIDS x 48 hours as directed per Radiology Policy [id number]. Shower morning of exam. Patient may eat & drink. For any medication related questions please.call the Radiology Nurses at [phone] between 0800 & 4:30pm Thursday to Thursday. If you need to reschedule this exam please contact Radiology scheduling at [phone]. documented in this encounter Plan of Treatment Upcoming Encounters Date Type Department Care Team (Late st Contact Info) Description 05/27/2024 9:45 EDT Office Visit [facility] Ophthalmology - [facility] [address] [place] [address] Yahir Cuevas MD [address] [facility], [address] [place] [address] documented as of this encounter Procedures Procedure Name Priority Date/Time Associated Diagnosis Comments FL GUIDED LOCALIZATION, ASPIRATION, INJECTION, BIOPSY Routine 10/23/2020 14:06 EDT Arthritis of carpometacarpal (CMC) joint of left thumb documented in this encounter Results * FL GUIDED INJECT/ASPIR LEFT WRIST (10/23/2020 14:06 EDT) Anatomical Region Laterality Modality Radio Fluoroscop y 10/23/2020 16:3 4 EDT Impressions 10/23/2020 16:34 EDT 1. ??Successful intra-articular injection of steroid and anesthetic into the left first carpometacarpal joint under fluoroscopic guidance. Dr. Cordoba was present during the injection for intra-articular administration of the steroid and anesthetic. I have personally reviewed the images and the above interpretation and agree with the findings. Narrative 10/23/2020 16:34 EDT FL GUIDED INJECT/ASPIR LEFT WRIST ??10/23/2020 1:00 PM Signs and Symptoms/Comments: ?? Guided intraarticular left thumb CMC joint cortisone injection Comparison: Left hand radiograph from September 27, 2019. Procedure: Left first carpometacarpal joint steroid and anesthetic injection under fluoroscopic guidance. Technique: The patient was met in the fluoroscopic suite where after proper identification, the risks, benefits, and alternatives to the procedure were explained in detail. The patient gave informed oral and written consent to proceed. The patient was then placed in supine position. A limited examination was performed and the appropriate site of entry on the left thumb was marked and then prepped and draped in the usual sterile fashion. A 1% lidocaine solution was infiltrated at the access site. Subsequently, under fluoroscopic guidance and using strict sterile technique, a 22-gauge spinal needle was advanced into the left first carpometacarpal joint and fluoroscopic confirmation was obtained by injecting Omnipaque 300 contrast into the joint space. Following this, a suspension containing 40 mg Kenalog mixed with 0.5% ropivacaine was injected into the joint. The needle was removed. Fluoroscopic spot images were saved during the procedure. The patient tolerated the procedure well. There were no immediate complications. Procedure Note Gamaliel Cordoba MD - 10/23/2020 FL GUIDED INJECT/ASPIR LEFT WRIST 10/23/2020 1:00 PM Signs and Symptoms/Comments: Guided intraarticular left thumb CMC joint cortisone injection Comparison: Left hand radiograph from September 27, 2019. Procedure: Left first carpometacarpal joint steroid and anesthetic injection underfluoroscopic guidance. Technique: The patient was met in the fluoroscopic suite where after properidentification, the risks, benefits, and alternatives to the procedurewere explained in detail. The patient gave informed oral and writtenconsent to proceed. The patient was then placed in supine position. A limited examination wasperformed and the appropriate site of entry on the left thumb was markedand then prepped and draped in the usual sterile fashion. A 1% lidocainesolution was infiltrated at the access site. Subsequently, under fluoroscopic guidance and using strict steriletechnique, a 22-gauge spinal needle was advanced into the left firstcarpometacarpal joint and fluoroscopic confirmation was obtained byinjecting Omnipaque 300 contrast into the joint space. Following this, asuspension containing 40 mg Kenalog mixed with 0.5% ropivacaine wasinjected into the joint. The needle was removed. Fluoroscopic spot images were saved during the procedure. The patient tolerated the procedure well. There were no immediatecomplications. IMPRESSION 1. Successful intra-articular injection of steroid and anesthetic intothe left first carpometacarpal joint under fluoroscopic guidance. Dr. Cordoba was present during the injection for intra-articularadministration of the steroid and anesthetic. I have personally reviewed the images and the above interpretation andagree with the findings. Mesha Powell PA-C [facility] FLUOROSCOPY ORDERABLES documented in this encounter Visit Diagnoses Diagnosis Arthritis of carpometacarpal (CMC) joint of left thumb documented in this encounter Administered Medications Inactive Administered Medications - up to 3 most recent administrations Medication Order MAR Action Action Date Dose Rate Site iohexoL (OMNIPAQUE 300) injection 50 mL 50 mL, intra-articular, Once in imaging, 1 dose, Starting on 10/23/20 at 1307, Until 10/23/20 at 1405, Routine, Imaging Protocol Orders Given 10/23/2020 14:05 EDT 1 mL lidocaine 1 % injection 10 mL 10 mL, subcutaneous, Once in imaging, 1 dose, Starting on 10/23/20 at 1307, Until 10/23/20 at 1405, Routine, Imaging Protocol Orders Given 10/23/2020 14:05 EDT 1 mL ropivacaine (PF) (NAROPIN) 5 mg/mL (0.5 %) injection 5 mL 5 mL, other, Once in imaging, 1 dose, Starting on 10/23/20 at 1307, Until 10/23/20 at 1405, Routine, Imaging Protocol Orders Given 10/23/2020 14:05 EDT 1 mL triamcinolone acetonide (KENALOG-40) injection 40 mg 40 mg, intra-articular, NOW X1, 1 dose, On 10/23/20 at 1330, Routine, Imaging Protocol Orders Given 10/23/2020 14:05 EDT 40 mg documented in this encounter Care Teams Drawbench Operator Relationship Specialty Start Date End Date Nia Molina NP [address] [place] [phone] PCP - General Family Medicine - Primary Care 09/26/20 08/06/21 documented as of this encounter
--- OUTSIDE RECORDS SUMMARY | 2024-03-24 14:33 | XMS_ITS | Encounter Summary ---
Author Organization [facility] Address [address] [place] [address] Care Team Providers Care Pressure Sealer And Tester Name Role Phone Yahir Spain MD Primary Care Provider Unavaila ble Reason for Referral * (Routine) - Closed Specialty Diagnoses / Procedures Referred By [facility] dawson Referred To Contact Diagnoses Nonexudative senile macular degeneration of retina Procedures OCT (OPHTHALMIC DIGITAL IMAGING, POSTERIOR SEGMENT) Daniel Peres MD [address] [phone] Referral ID Status Reason Start Date Expiration Date Visits Re quested Visits Authorized [id number] Closed 01/18/2016 1 1 Reason for Visit * Reason Comments Eye Problem Recheck 6 months: Mo d NNV AMD both eyes with extensive large drusen. New occ dark kidney eagle shaped floaters in the mornings both eyes x 10 months. VA a little worse lasha at night both eyes. No pain both eyes. No flashes Medication Management Artifical Tears Pl us both eyes PRN as needed Encounter Details Date Type Department Care Team (Late st Contact Info) Description 01/18/2016 13:15 EDT Office Visit [facility] Ophthalmology - [address] [place], [place] [id number] Daniel Peres MD [address] [phone] Social History Tobacco Use Types Packs/Day Years Used Date Smoking Tobacco: Never Alcohol Use Standard Drinks/Week Comments Yes 0 (1 standard drink = 0.6 oz pur e alcohol) very rare Sex and Gender Information Value Date Recorded Sex Assigned at Not on file Gender Identity Male 09/26/2020 15:47 EST Sexual Orientation Not on file documented as of this encounter Progress Notes * Daniel Peres MD - 01/18/2016 1400 EDT Chief Complaint Patient presents with ??? Eye Problem Recheck 6 months: Mod NNV AMD both eyes with extensive large drusen. New occ dark kidney eagle shaped floaters in the mornings both eyes x 10 months. VA a little worse lasha at night both eyes. No pain both eyes. No flashes ??? Medication Management Artifical Tears Plus both eyes PRN as needed HPI Location: Both eyes Pain: 0 - No pain Quality: Blurry Severity: Mild Duration: Months Timing: Constant Lasts: Continuous Context: Recheck 6 months: Mod NNV AMD both eyes with extensive large drusen. New occ dark kidney eagle shaped floaters in the mornings both eyes x 10 months. VA a little worse lasha at night both eyes. No pain both eyes. No flashes Modifying factors: glasses Associated Signs & Symptoms: VA a little worse both eyes Visual Fluctuations: None Attestation: Base Eye Exam Visual Acuity (Snellen - Linear) Right Left Dist cc 20/20 20/25 Correction: Glasses Tonometry (Applanation, 13:38) Right Left Pressure 12 15 Pupils Dark Light React APD Right 4 3 Brisk None Left 4 3 Brisk None Extraocular Movement Right Left Result Full Full Neuro/Psych Oriented x3: Yes Mood/Affect: Normal Dilation Both eyes: 2.5% Phenylephrine, 1.0% Mydriacyl @ 13:39 Slit Lamp and Fundus Exam Slit Lamp Exam Right Left Lids/Lashes Blepharitis Blepharitis Conjunctiva/Sclera White and quiet Injection Cornea Clear Clear Anterior Chamber Deep and quiet Deep and quiet Iris Round and reactive Round and reactive Lens 1+ Nuclear sclerosis 1+ Nuclear sclerosis Vitreous Posterior vitreous detachment heavy VS Fundus Exam Right Left Disc Normal Normal C/D Ratio 0.3 0.3 Macula extensive large drusen large drusen Vessels Normal Normal Periphery scar 6, 7 Normal All five layers of the cornea are normal unless otherwise specified. Please refer to large retinal drawing. IMAGING: OCT REPORT Indications: Age-related Macular Degeneration Findings: Right Eye Left Eye Drusen Drusen Original test to be found in patients shadow chart IMPRESSION: 1. Nonexudative senile macular degeneration of retina 2. Vitreous syneresis, left 3. PVD (posterior vitreous detachment), right 4. Nuclear senile cataract, bilateral PLAN: Mod NNV AMD both eyes Continue AG and AREDS 2 Observe PVD right eye Appears new from last visit RD precautions No holes, tears Observe VS left eye No PVD Observe Mild NSC both eye NVS Observe Return in 1 year with OCT sooner PRN Alternate appts with Dr. Gomez Copy to Jason I, Dr. Daniel Peres, have performed my own HPI and reviewed the tech's ROS. I have also reviewed thepatient's past medical, family, social and surgical history, as well as the patient's medications, allergies, and problem list. I am scribing for Dr. Daniel Peres MD while he is personally performing the service. HARRY Willams (Scribe) documented in this encounter Plan of Treatment Upcoming Encounters Date Type Department Care Team (Late st Contact Info) Description 05/27/2024 9:45 EDT Office Visit [facility] Ophthalmology - [address] [phone] Yahir Cuevas MD 111 [facility], [address] [place] [phone] Scheduled Orders Name Type Priority Associated Diagnoses Orde r Schedule OCT (OPHTHALMIC DIGITAL IMAGING, POSTERIOR SEGMENT) Ophthalmology Routine Nonexudative Senile Macular Degeneration of Retina Ordered: 01/18/2016 documented as of this encounter Visit Diagnoses Diagnosis Nonexudative senile macular degeneration of retina- Primary Vitreous syneresis, left PVD (posterior vitreous detachment), right Nuclear senile cataract, bilateral documented in this encounter Historical Medications * This list may reflect changes made after this encounter. Medication Sig Dispensed Refills Start Date End Date MINERAL OIL/PETROLATUM,WHITE (TEARS AGAIN OPHTHALMIC) Apply to eye as needed. added in this encounter Eye Exam Visual Acuity (Snellen - Linear) Right eye Left eye Dist cc 20/20 20/25 Correction: Glasses Tonometry (Applanation, 13:38) Right eye Left eye Pressure 12 15 Pupils Dark Light React APD Right eye 4 3 Brisk None Left eye 4 3 Brisk None Extraocular Movement Right eye Left eye Full Full Neuro/Psych Oriented x3: Yes Mood/Affect: Normal Dilation Both eyes: 2.5% Phenylephrin e, 1.0% Mydriacyl @ 13:39 Slit Lamp Exam Right eye Left eye Lids/Lashes Blepharitis Blepharitis Conjunctiva/Sclera White and quiet Injection Cornea Clear Clear Anterior Chamber Deep and quiet Deep and quiet Iris Round and reactive Round and radhika ctive Lens 1+ Nuclear sclerosis 1+ Nuclear sclerosis Vitreous Posterior vitreous detachment he paul VS Fundus Exam Right eye Left eye Disc Normal Normal C/D Ratio 0.3 0.3 Macula extensive large drusen large anjel sen Vessels Normal Normal Periphery scar 6, 7 Normal Care Teams Pressure Sealer And Tester Relationship Specialty Start Date End Date Yahir Spain MD PCP - General 12/23/12 01/08/17 documented as of this encounter
--- OUTSIDE RECORDS SUMMARY | 2024-03-24 14:33 | XMS_ITS | Encounter Summary ---
Author Organization [facility] Address [address] [place] [address] Care Team Providers Care International Editorial Producer Name Role Phone Jesse Nia Julio COMMISSIONS COORDINATOR Primary Care Provider [phone] Reason for Visit * Reason Comments Eye Flashes And/Or Floaters Encounter Details Date Type Department Care Team (Late st Contact Info) Description 03/12/2021 14:30 EDT Office Visit [facility] Ophthalmology - [address] [id number] Yahir Cuevas MD [address] [facility], [address] [place] [address] Social History Tobacco Use Types [...] on file documented as of this encounter Patient Instructions * Patient Instructions* Jaci Milligan COA - 03/12/2021 14:30 EDT Spoke with Kirt Mora and cautioned them to notice any new flashes, floaters, or loss in peripheral vision. If they have any of these symptoms, they were instructed to contact office immediately. They have been further counseled to cover the unaffected eye at least once per day to ascertain whether there is any increase in floaters , flashes or loss of side vision occurring in the affected eye. documented in this encounter Progress Notes * Yahir Cuevas MD - 03/12/2021 1430 EDT See note above * Yahir Cuevas MD - 03/12/2021 1430 EDT Chief Complaint Patient presents with ??? Eye Flashes And/Or Floaters Comments Pt being followed for dry AMD both eyes, w/Hx bilateral PVDs, here for urgent visit for new onset squiggly floaters right eye, starting ~3 days ago, which seemed to evolve into a blurry squiggle thatmoved when turning head, was particularly prominent yesterday, not quite so much today. No flashes.No current eye pain, no ocular discomfort other than ongoing dry eye irritation. HPI Location: Both eyes Pain: 0 - No pain Quality: Severity: Duration: Months Timing: Constant Lasts: Months Context: Modifying factors: Associated Signs & Symptoms: Visual Fluctuations: Floaters Attestation: Base Eye Exam Visual Acuity (Snellen - Linear) Right Left Dist sc 20/25 -2 20/25 -1 Tonometry (Applanation, 14:42) Right Left Pressure 15 15 Neuro/Psych Oriented x3: Yes Mood/Affect: Normal Dilation Both eyes: Phenylephrine 2.5%, Tropicamide 1% @ 14:43 Slit Lamp and Fundus Exam Slit Lamp Exam Right Left Lids/Lashes Normal Normal Conjunctiva/Sclera White and quiet White and quiet Cornea Clear Pterygium Anterior Chamber Deep and quiet Deep and quiet Iris Round and reactive Round and reactive Lens 1+ Nuclear sclerosis 1+ Nuclear sclerosis Vitreous Posterior vitreous detachment Posterior vitreous detachment Fundus Exam Right Left Disc Healthy Rim Healthy Rim C/D Ratio 0.3 0.3 Macula large confluent drusen, no hemorrhage, no fluid large confluent drusen, no hemorrhage, no fluid Vessels Normal Normal Periphery Lattice Degeneration at 7:00, 9:00 and 11:00, retinal tear at 12:00 Retina attached 360, no holes or tears Please refer to large retinal drawing. IMAGING/PROCEDURES: OCT, Retina - OU - Both Eyes Right Eye Quality was good. Scan locations included subfoveal. Progression has worsened. Findings include pigment epithelial detachment. Left Eye Quality was good. Scan locations included subfoveal. Progression has worsened. Findings include pigment epithelial detachment. Notes Both eyes: Increased drusenoid PED, no fluid. OCT-A: No choroidal neovascular membrane Prophylaxis of Retinal Detachment, Laser - OD - Right Eye Oph Retinal Laser Note Kirt Mora is here and consented to the following: Procedure Laser Retinopexy Indication: Tear Side: Right Eye Surgeon: Yahir Cuevas MD PROCEDURE: Anesthesia Type: Topical Proparacine HCl 0.4% Ophthalmic solution The patient was taken to the laser room where a total of 500 spots of 0.1 sec duration and 532 nm wavelength were placed aroud superior tear and adjacent lattice. Lens used: 20D lens. Power: 250 mW Spot size: 500 um I certify that a Final Verification has been performed by the surgical team immediately prior to this procedure to verbally confirm patient identity, procedure and when applicable, site. Name of Senior Graphic Designer: Yahir Cuevas MD Post op diagnosis/findings: Retinal Tear right eye, Lattice Degeneration right eye Disposition/ Complications: The patient tolerated the procedure well and left the office in good condition. Followup/ Instructions: N/A DIAGNOSES: 1. 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 PVD (posterior vitreous detachment), both eyes 3. Retinal tear of right eye PROPHYLAXIS OF RETINAL DETACHMENT, LASER - OD - RIGHT EYE 4. Lattice degeneration of retina, right eye PROPHYLAXIS OF RETINAL DETACHMENT, LASER - OD - RIGHT EYE 5. Pterygium of left eye 6. Nuclear sclerosis of both eyes ASSESSMENT: Intermediate Dry ARMD both eyes. Progression of drusenoid PED since 2019 in both eyes, which could explain metamorphopsia right eye. No sign of CNVM. Check Amsler Grid daily and call with any changes. Continue AREDS 2 vitamins. Follow. PVD both eyes. RD precautions were reviewed with the patient. Cautioned patient to call right away if he notices any sudden explosion of new flashes or floaters,or if he sees a watery dunn curtain coming up, down or sideways into his vision. Patient understands and agrees to do so. Follow. Retinal Tear right eye. Adjacent to patch of lattice degeneration. Recommend laser retinopexy to reduce risk vision loss due to retinal detachment. Risks, benefits and alternatives were discussed with the patient. Patient understands and agrees to proceed with treatment. Lattice Degeneration right eye. Recommend laser retinopexy to seal off lattice degeneration and prevent vision loss due to retinal detachment. Risks, benefits and alternatives were discussed with the patient. Patient understands and agrees to proceed with treatment. Pterygium left eye. Stable. No progression into visual axis. Follow. NS Cataract both eyes. Not visually significant. Do not recommend surgical intervention at this time. Follow. Return in about 1 month (around 04/12/2021), or if symptoms worsen or fail to improve, for dilated exam. I have reviewed the past medical, family, [...] while he is personally performing the service. Jaci Milligan, Supervisor Char House (Scribe) documented in this encounter Plan of Treatment Upcoming Encounters Date Type Department Care Team (Late st Contact Info) Description 05/27/2024 9:45 EDT Office Visit [facility] Ophthalmology - [address] [phone] Yahir Cuevas MD [address] [place] [address], [address] [place] [phone] documented as of this encounter Procedures Procedure Name Priority Date/Time Associated Diagnosis Comments PROPHYLAXIS OF RETINAL DETACHMENT, LASER - OD - RIGHT EYE Routine 03/13/2021 10:22 EDT Retinal tear of right eye Lattice degeneration of retina, right eye OCT, RETINA - OU - BOTH EYES Routine 03/12/2021 16:49 EDT Intermediate stage nonexudative age-related macular degeneration of both eyes documented in this encounter Results * PROPHYLAXIS OF RETINAL DETACHMENT, LASER - OD - RIGHT EYE (03/13/2021 10:22 EDT) Narrative [facility] POINT OF CARE - 03/13/2021 10:22 EDT Oph Retinal Laser Note Kirt Mora is here and consented to the following: Procedure Laser Retinopexy Indication: Tear Side: Right Eye Surgeon: Yahir Cuevas MD PROCEDURE: Anesthesia Type: Topical Proparacine HCl 0.4% Ophthalmic solution The patient was taken to the laser room where a total of 500 spots of 0.1 sec duration and 532 nm wavelength were placed aroud superior tear and adjacent lattice. Lens used: 20D lens. Power: 250 mW Spot size: 500 um I certify that a Final Verification has been performed by the surgical team immediately prior to this procedure to verbally confirm patient identity, procedure and when applicable, site. Name of Senior Graphic Designer: Yahir Cuevas MD Post op diagnosis/findings: Retinal Tear right eye, Lattice Degeneration right eye Disposition/ Complications: The patient tolerated the procedure well and left the office in good condition. Followup/ Instructions: N/A Yahir Cuevas MD OPH CLINIC PROCEDU RES Performing Organization Address [facility] Co de Phone Number [facility] POINT OF CARE * OCT, RETINA - OU - BOTH EYES (03/12/2021 16:49 EDT) Narrative [facility] POINT OF CARE - 03/13/2021 10:23 EDT Right Eye Quality was good. Scan locations included subfoveal. Progression has worsened. Findings include pigment epithelial detachment. Left Eye Quality was good. Scan locations included subfoveal. Progression has worsened. Findings include pigment epithelial detachment. Notes Both eyes: ??Increased drusenoid PED, no fluid. OCT-A: ??No choroidal neovascular membrane Yahir Cuevas MD OPHTH TOMOGRAPHY Performing Organization Address [facility] Co de Phone Number [facility] POINT OF CARE documented in this encounter Visit Diagnoses Diagnosis Intermediate stage nonexudative age-related macular degeneration of both eyes- Primary PVD (posterior vitreous detachment), both eyes Vitreous degeneration Retinal tear of right eye Lattice degeneration of retina, right eye Pterygium of left eye Pterygium, unspecified Nuclear sclerosis of both eyes documented in this encounter Eye Exam Visual Acuity (Snellen - Linear) Right eye Left eye Dist sc 20/25 -2 20/25 -1 Tonometry (Applanation, 14:42) Right eye Left eye Pressure 15 15 Neuro/Psych Oriented x3: Yes Mood/Affect: Normal Dilation Both eyes: Phenylephrine 2.5 %, Tropicamide 1% @ 14:43 Slit Lamp Exam Right eye Left eye Lids/Lashes Normal Normal Conjunctiva/Sclera White and quiet White and yenni et Cornea Clear Pterygium Anterior Chamber Deep and quiet Deep and quiet Iris Round and reactive Round and radhika ctive Lens 1+ Nuclear sclerosis 1+ Nuclear sclerosis Vitreous Posterior vitreous detachment Po sterior vitreous detachment Fundus Exam Right eye Left eye Disc Healthy Rim Healthy Rim C/D Ratio 0.3 0.3 Macula large confluent drus en, no hemorrhage, no fluid large confluent drusen, no hemorrhage, no fluid Vessels Normal Normal Periphery Lattice Degeneration at 7:00, 9:00 and 11:00, retinal tear at 12:00 Retina attached 360, no holes or tears Care Teams International Editorial Producer Relationship Specialty Start Date End Date Nia Molina COMMISSIONS COORDINATOR [address] [place] [phone] PCP - General Family Medicine - Primary Care 09/26/20 08/06/21 documented as of this encounter
--- OUTSIDE RECORDS SUMMARY | 2024-03-24 14:33 | XMS_ITS | Encounter Summary ---
Author Organization [facility] Address [address] [place] [address] Care Team Providers Care Oil Rig Roughneck Name Role Phone Nia Molina CHECK GRADER Primary Care Provider [phone] Reason for Visit * Reason Onset Date Comments Appointment Related 03/18/2021 Encounter Details Date Type Department Care Team (Late st Contact Info) Description 03/18/2021 Telephone [facility] Ophthalmology - [address] [address] Yahir Cuevas MD [address] [place] [address], [address] [place] [phone] Appointment Related Social History Tobacco Use Types Packs/Day Years [...] encounter Miscellaneous Notes * Telephone Encounter - Salima Rinaldi - 03/18/2021 0836 EDT Lmom for pt to call back and schedule next appt. Reminder has been placed documented in this encounter Plan of Treatment Upcoming Encounters Date Type Department Care Team (Late st Contact Info) Description 05/27/2024 9:45 EDT Office Visit [facility] Ophthalmology - [address] [place] [address] [place], [place] [phone] Yahir Cuevas MD [address] [facility], [address] [place] [phone] documented as of this encounter Visit Diagnoses Not on filedocumented in this encounter Care Teams Oil Rig Roughneck Relationship Specialty Start Date End Date Nia Molina NP [address] [place] [phone] PCP - General Family Medicine - Primary Care 09/26/20 08/06/21 documented as of this encounter
--- OUTSIDE RECORDS SUMMARY | 2024-03-24 14:33 | XMS_ITS | Encounter Summary ---
Author Organization [facility] Address [address] [place] [address] Care Team Providers Care Civil Design Specialist Name Role Phone Jesse Nia Kim NURSING DIRECTOR Primary Care Provider [phone] Reason for Visit * Reason Comments Follow-up Encounter Details Date Type Department Care Team (Late st Contact Info) Description 06/04/2021 9:30 EDT Office Visit [facility] Ophthalmology - [address] [phone] Yahir Cuevas MD [address] [place] [address], [address] [place] [phone] Social History Tobacco Use Types Packs/Day Years [...] Progress Notes * Yahir Cuevas MD - 06/04/2021 0921 EDT Chief Complaint Patient presents with ??? Follow-up Comments Pt here for 2 month f/u for Lattice right eye, HST right eye, PD both eyes S/P Laser to HST right eye (03-12-21) Occl blurry vision right eye. VA stable left eye. Occl floaters right eye longstanding but occurring less frequently. No flashes. No pain but dryness and redness both eyes. HPI Location: Both eyes Pain: 0 - No pain Quality: Blurry Severity: Moderate Duration: Years Timing: Constant Lasts: Continuous Context: Occl blurry vision right eye. VA stable left eye. Occl floaters right eye longstanding butoccurring less frequently. No flashes. No pain Modifying factors: S/P Laser to HST right eye (03-12-21) Associated Signs & Symptoms: Lattice right eye, HST right eye, PD both eyes Visual Fluctuations: Floaters Attestation: Base Eye Exam Visual Acuity (Snellen - Linear) Right Left Dist sc 20/25 +2 20/20 -2 Tonometry (Applanation, 9:48) Right Left Pressure 16 16 Neuro/Psych Oriented x3: Yes Mood/Affect: Normal Dilation Both eyes: Phenylephrine 2.5%, Tropicamide 1% @ 9:48 Slit Lamp and Fundus Exam Slit Lamp [...] locations included subfoveal. Progression has been stable. Left Eye Quality was good. Scan locations included subfoveal. Progression has been stable. Notes Both eyes: Stable drusen, PED, no fluid OCT-A: No choroidal neovascular membrane DIAGNOSES: 1. Intermediate stage nonexudative age-related macular [...] reviewed. ?? Lattice Degeneration??right??eye. Vs paving stone degeneration temporally Well surrounded by laser scars superiorly Retina is attached Follow. ?? Posterior vitreous detachment, both eyes Retina attached, no new predisposing lesions to retinal detachment. recheck 1 year, sooner prn I have reviewed the past medical, family, [...] he is personally performing the service. HARRY Sidhu (Scribe) documented in this encounter Plan of Treatment Upcoming Encounters Date Type Department Care Team (Late st Contact Info) Description 05/27/2024 9:45 EDT Office Visit [facility] Ophthalmology - [address] [address] Yahir Cuevas MD [address] [facility], [address] [place] [phone] documented as of this encounter Procedures Procedure Name Priority Date/Time Associated Diagnosis Comments OCT, RETINA - OU - BOTH EYES Routine 06/05/2021 17:01 EDT Intermediate stage nonexudative age-related macular degeneration of both eyes documented in this encounter Results * OCT, RETINA - OU - BOTH EYES (06/05/2021 17:01 EDT) Narrative [facility]INT [facility] - 06/05/2021 17:01 EDT Right Eye Quality was good. Scan locations included subfoveal. Progression has been stable. Left Eye Quality was good. Scan locations included subfoveal. Progression has been stable. Notes Both eyes: ??Stable drusen, PED, no fluid OCT-A: ??No choroidal neovascular membrane Yahir Cuevas MD OPHTH TOMOGRAPHY [facility] POINT OF CARE documented in this encounter Visit Diagnoses Diagnosis Intermediate stage nonexudative age-related macular degeneration of both eyes- Primary Retinal tear of right eye Lattice degeneration of retina, right eye PVD (posterior vitreous detachment), both eyes Vitreous degeneration documented in this encounter Eye Exam Visual Acuity (Snellen - Linear) Right eye Left eye Dist sc 20/25 +2 20/20 -2 Tonometry (Applanation, 9:48) Right eye Left eye Pressure 16 16 Neuro/Psych Oriented x3: Yes Mood/Affect: Normal Dilation Both eyes: Phenylephrine 2.5 %, Tropicamide 1% @ 9:48 Slit Lamp Exam Right eye Left eye [...] holes, tears or breaks seen Care Teams Civil Design Specialist Relationship Specialty Start Date End Date Nia Molina NP [address] [place] [phone] PCP - General Family Medicine - Primary Care 09/26/20 08/06/21 documented as of this encounter
--- OUTSIDE RECORDS SUMMARY | 2024-03-24 14:33 | XMS_ITS | Encounter Summary ---
Author Organization [facility] Address [address] [place] [address] Care Team Providers Care Wildlife Conservation Officer Name Role Phone Yahir Spain MD Primary Care Provider Unavaila ble Reason for Visit * Reason Comments Follow-up 52 year old male wit h hx NNV AMD both eyes here for 6 month check. Reports mild decreaase in vision and dryness. Encounter Details Date Type Department Care Team (Late st Contact Info) Description 06/27/2013 14:15 EST Office Visit [facility] Ophthalmology - [address] [address] Daniel Peres MD [address] [facility], [address] [place] [phone] Social History Tobacco Use Types Packs/Day Years Used Date Smoking Tobacco: Never Alcohol Use Standard Drinks/Week Comments Yes 0 (1 standard drink = 0.6 oz pur e alcohol) very rare Sex and Gender Information Value Date Recorded Sex Assigned at Not on file Gender Identity Male 09/26/2020 15:47 EST Sexual Orientation Not on file documented as of this encounter Discharge Diagnoses Diagnosis 362.51 NONEXUDAT MACULAR DEGEN[ICD-9-CM] 379.24 VITREOUS OPACITIES NEC[ICD-9-CM] 366.16 SENILE NUCLEAR CATARACT[ICD-9-CM] 375.15 TEAR FILM INSUFFIC NOS[ICD-9-CM] documented in this encounter Progress Notes * Daniel Peres MD - 06/27/2013 1513 EST Chief Complaint Patient presents with ??? Follow-up 52 year old male with hx NNV AMD both eyes here for 6 month check. Reports mild decreaase in visionand dryness. HPI Location: Both eyes Pain: 0 - No pain Quality: Blurry Severity: Mild Duration: Months Timing: Constant Lasts: Continuous Context: NNV AMD both eyes Modifying factors: gradual decrease vision, dryness left more than right Has been like this for months Associated Signs & Symptoms: no pain, pterygium left eye Visual Fluctuations: Floaters Attestation: Base Eye Exam Visual Acuity Right Left Dist sc 20/25 -2 20/25 -1 Dist ph sc 20/20 20/20 Method: Snellen - Linear Tonometry Right Left Pressure 12 13 Method: Applanation Time: 15:03 Pupils Pupils Dark APD Right PERRL 5 None Left PERRL 5 None Extraocular Movement Right Left Result Full Full Neuro/Psych Oriented x3: Yes Mood/Affect: Normal Slit Lamp and Fundus Exam Slit Lamp Exam Right Left Lids/Lashes Blepharitis Blepharitis Conjunctiva/Sclera White and quiet White and quiet Cornea SPK SPK Anterior Chamber Deep and quiet Deep and quiet Iris Round and reactive Round and reactive Lens 2+ Nuclear sclerosis 2+ Nuclear sclerosis Vitreous Vitreous syneresis Vitreous syneresis Fundus Exam Right Left Disc Normal Normal C/D Ratio 0.2 0.3 Macula lg drusen no fluid or heme lg drusen, no fluid or heme Vessels Normal Normal Periphery Normal Normal All five layers of the cornea are normal unless otherwise specified. Please refer to large retinal drawing. IMAGING: OCT REPORT Indications: Age-related Macular Degeneration Findings: Right Eye Left Eye Drusen Drusen Original test to be found in patients shadow chart IMPRESSION: 1. Nonexudative senile macular degeneration of retina OCT (OPHTHALMIC DIGITAL IMAGING, POSTERIOR SEGMENT) 2. Vitreous syneresis 3. Peripheral pterygium, stationary PLAN: Mod NNV AMD both eyes Continue AG and AREDS with Lutein Call with AG changes Observe VS both eyes No PVD Observe Min'l NSC both eyes NVS Observe Dry Eyes both eyes Consider Cornea doctor to evaluate Pt will continue AT's Observe Return in 6 months sooner PRN I, Dr. Daniel Peres, have performed my [...] Description 05/27/2024 9:45 EDT Office Visit [facility] Ophthalmology - [address] [phone] Yahir Cuevas MD [address] [facility], [address] [place] [phone] Scheduled Orders Name Type Priority Associated Diagnoses Orde r Schedule OCT (OPHTHALMIC DIGITAL IMAGING, POSTERIOR SEGMENT) Ophthalmology Routine Nonexudative Senile Macular Degeneration of Retina Ordered: 06/27/2013 documented as of this encounter Visit Diagnoses Diagnosis Nonexudative senile macular degeneration of retina- Primary Vitreous syneresis Other vitreous opacities Peripheral pterygium, stationary documented in this encounter Eye Exam Visual Acuity (Snellen - Linear) Right eye Left eye Dist sc 20/25 -2 20/25 -1 Dist ph sc 20/20 20/20 Tonometry (Applanation, 15:03) Right eye Left eye Pressure 12 13 Pupils Pupils Dark APD Right eye PERRL 5 None Left eye PERRL 5 None Extraocular Movement Right eye Left eye Full Full Neuro/Psych Oriented x3: Yes Mood/Affect: Normal Slit Lamp Exam Right eye Left eye Lids/Lashes Blepharitis Blepharitis Conjunctiva/Sclera White and quiet White and yenni et Cornea SPK SPK Anterior Chamber Deep and quiet Deep and quiet Iris Round and reactive Round and radhika ctive Lens 2+ Nuclear sclerosis 2+ Nuclear sclerosis Vitreous Vitreous syneresis Vitreous syne resis Fundus Exam Right eye Left eye Disc Normal Normal C/D Ratio 0.2 0.3 Macula lg drusen no fluid or heme lg dr usen, no fluid or heme Vessels Normal Normal Periphery Normal Normal Care Teams Wildlife Conservation Officer Relationship Specialty Start Date End Date Yahir Spain MD PCP - General 12/23/12 01/08/17 documented as of this encounter
--- OUTSIDE RECORDS SUMMARY | 2024-03-24 14:33 | XMS_ITS | Encounter Summary ---
Author Organization [facility] Address [address] [place] [address] Care Team Providers Care Supervisor [employer] Name Role Phone Unavailable Primary Care Provider Unavailabl e Encounter Details Date Type Department Care Team (Late st Contact Info) Description 09/11/2008 Before PRISM Converted Visit (Map[place]) [facility] - Maple conversion [address] [place], [place] [id number] Maximiliano Obregon MD [address] [place] [address] [address] [place] [phone] Social History Tobacco Use Types Packs/Day Years Used Date Smoking Tobacco: Never Assessed Sex and Gender Information Value Date Recorded Sex Assigned at Not on file Gender Identity Male 09/26/2020 15:47 EST Sexual Orientation Not on file documented as of this encounter Plan of Treatment Upcoming Encounters Date Type Department Care Team (Late st Contact Info) Description 05/27/2024 9:45 EDT Office Visit [facility] Ophthalmology - [facility] [address] [place], [place] [address] Maximiliano Cuevas MD [address] [facility], [address] 5 [place] [phone] documented as of this encounter Procedures Procedure Name Priority Date/Time Associated Diagnosis Comments CYTOPATHOLOGY Routine 09/11/2008 0:00 EST documented in this encounter Results * CYTOPATHOLOGY (09/11/2008 0:00 EST) Pathology Report: CYTOPATHOLOGY REPORT ? Reports generated via electronic interface contain original data; ? however they are lacking the format of the original report. ? Caution should be taken when reading/interpreti ng unformatted reports. ? Name: ? KIRT RAMIREZ ? Accession #: ? [id number] ? : ? 1960 (Age: 47) ??M ?Collect Date: ? 09/11/2008 ? Location: ? [facility] ? Receive Date: ? 09/11/2008 ? Provider: ? MAXIMILIANO A TREMBLEY MD ? Copy to: ? Specimen Type: ? Urine, Voided ? Clinical History: ? Hematuria. ? Gross Description: ? 40cc' s of clear yellow fluid were received and processed by selective ? cellular enhancement technique. ? CYTOLOGIC DIAGNOSIS: ? Urine, voided, cytologic evaluation: ? 1. ?No malignant cells identified. ? 2. ? Rare, degenerated urothelial cells. ? Document reviewed and electronically signed by: ? Genoveva Lema MD ? Report Date: ??09/11/2008 16:51 ? By the signature above, the attending physician certifies that he/she has ? personally conducted a gross and/or microscopic examination of the described ? specimens and rendered or confirmed the above diagnosis. ? End of Report ? SHANE SANDOVAL 09/11/2008 09/11/2008 8:5 8 EST Maximiliano Obregon MD PATHOLOGY ORDERABLE [facility] [address] [place] [address] documented in this encounter Visit Diagnoses Not on filedocumented in this encounter
--- OUTSIDE RECORDS SUMMARY | 2024-03-24 14:33 | XMS_ITS | Encounter Summary ---
Author Organization [facility] Address [address] [place] [address] Care Team Providers Care Aluminum Molding Machine Operator Name Role Phone Jesse Nia Kim FORMING MACHINE UPKEEP MECHANIC HELPER Primary Care Provider [phone] Reason for Visit * Reason Comments Eye Problem Encounter Details Date Type Department Care Team (Late st Contact Info) Description 04/09/2021 13:45 EDT Office Visit [facility] Ophthalmology - [address] [phone] Yahir Cuevas MD [address] [place] [address], [address] 5 [place] [phone] Social History Tobacco Use Types Packs/Day Years [...] Progress Notes * Yahir Cuevas MD - 04/09/2021 1345 EDT Chief Complaint Patient presents with ??? Eye Problem Comments HST right eye s/p laser. 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 PVD both eyes. NSC both eyes. HPI Location: Right eye Pain: 0 - No pain Quality: Sharp Severity: Mild Duration: Weeks Timing: Intermittent Lasts: Weeks Context: patient states he is seeing the same floaters in the right eye. he has been seeing a watery curtain in the bottom of his vision in the right eye since having laser 4 weeks ago, not getting any better. Modifying factors: occasional eye pain when looking from side to side quickly. no eye pain today. Associated Signs & Symptoms: HST right eye s/p laser. 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 PVD both eyes. NSC both eyes. Visual Fluctuations: Floaters Attestation: Base Eye Exam Visual Acuity (Snellen - Linear) Right Left Dist sc 20/25 20/30 -1 Correction: Glasses Tonometry (Applanation, 14:30) Right Left Pressure 16 15 Pupils APD Right None Left None Visual Singer Right Left Full Restrictions Partial outer inferior temporal, inferior nasal deficiencies Neuro/Psych Oriented x3: Yes Mood/Affect: Normal Dilation Both eyes: Tropicamide 1%, Phenylephrine 2.5% @ 14:31 Slit Lamp and Fundus Exam Slit Lamp Exam Right Left Lids/Lashes Normal Normal Conjunctiva/Sclera White and quiet White and quiet Cornea Clear nasally Pterygium Anterior Chamber Deep and quiet Deep [...] to large retinal drawing. IMAGING: DIAGNOSES: 1. Retinal tear of right eye 2. Lattice degeneration of retina, right eye 3. PVD (posterior vitreous detachment), both eyes Assessment Retinal Tear right eye. Adjacent to patch of lattice degeneration. Well surrounded by laser scars No new holes, tears or breaks seen Retinal detachment precautions ?? Lattice Degeneration right eye. Vs paving stone degeneration temporally Well surrounded by laser scars superiorly Retina is attached Posterior vitreous detachment both eyes. Retinal detachment precautions were reviewed with the patient. Cautioned patient to call right away if he notices any sudden explosion of new flashes or floaters,or if he sees a watery dunn curtain coming up, down or sideways into his vision. Patient understands and agrees to do so. Follow. Follow up in 2 months I have reviewed the past medical, family, [...] while he is personally performing the service. JAVON Lake (scribe) documented in this encounter Plan of Treatment Upcoming Encounters Date Type Department Care Team (Late st Contact Info) Description 05/27/2024 9:45 EDT Office Visit [facility] Ophthalmology - [address] [id number] Yahir Cuevas MD [address] [place] [address], [address] [place] [phone] documented as of this encounter Visit Diagnoses Diagnosis Retinal tear of right eye- Primary Lattice degeneration of retina, right eye PVD (posterior vitreous detachment), both eyes Vitreous degeneration documented in this encounter Historical Medications * This list may reflect changes made after this encounter. Medication Sig Dispensed Refills Start Date End Date doxycycline (ADOXA) 100 mg tablet Take 100 mg by mouth 2 times daily. added in this encounter Eye Exam Visual Acuity (Snellen - Linear) Right eye Left eye Dist sc 20/25 20/30 -1 Correction: Glasses Tonometry (Applanation, 14:30) Right eye Left eye Pressure 16 15 Pupils APD Right eye None Left eye None Visual Singer Right eye Left eye Full Restrictions Partial outer inferior temporal, inferior nasal deficiencies Neuro/Psych Oriented x3: Yes Mood/Affect: Normal Dilation Both eyes: Tropicamide 1%, P henylephrine 2.5% @ 14:31 Slit Lamp Exam Right eye Left eye Lids/Lashes Normal Normal Conjunctiva/Sclera White and quiet White and yenni et Cornea Clear nasally Pterygiu m Anterior Chamber Deep and quiet Deep and [...] holes, tears or breaks seen Care Teams Aluminum Molding Machine Operator Relationship Specialty Start Date End Date Nia Molina, FORMING MACHINE UPKEEP MECHANIC HELPER [address] [place] [phone] PCP - General Family Medicine - Primary Care 09/26/20 08/06/21 documented as of this encounter
--- OUTSIDE RECORDS SUMMARY | 2024-03-24 14:33 | XMS_ITS | Encounter Summary ---
Author Organization [facility] Address [address] [place] [address] Care Team Providers Care Museum Tour Guide Name Role Phone Rambo Hartley RPA Primary Care Provider [phone] Reason for Visit * Reason Comments Follow-up bph * Consult (Routine) - Closed Specialty Diagnoses / Procedures Referred By Brennan dawson Referred To Contact Urology Diagnoses Overactive bladder Prostate enlargement Rambo Hartley RPA [address] [place] [address] [place] [address] [place] [address] [address] [place] [address] Referral ID Status Reason Start Date Expiration Date Visits Re quested Visits Authorized [id number] Closed 1 1 Encounter Details Date Type Department Care Team (Late st Contact Info) Description 03/24/2017 15:15 EDT Office Visit [facility] Urology - Main [place] [address] [place] [address] Kirby Cortés MD [address] [place] [phone] BPH w urinary obs/LUTS (Primary Dx) Social History Tobacco Use Types Packs/Day Years Used Date Smoking Tobacco: Never Alcohol Use Standard Drinks/Week Comments Yes 0 (1 standard drink = 0.6 oz pur e alcohol) very rare Sex and Gender Information Value Date Recorded Sex Assigned at Not on file Gender Identity Male 09/26/2020 15:47 EST Sexual Orientation Not on file documented as of this encounter Progress Notes * Kirby Cortés - 03/24/2017 2517 EDT REQUESTING PHYSICIAN: Rambo Hartley RPA REASON FOR CONSULTATION: Bothersome lower urinary tract symptoms and BPH. HISTORY OF PRESENT ILLNESS: This is a 56-year-old gentleman with a longstanding history of irritative voiding symptoms. He was seen by a urologist in 2008, and it looks like the focus at that time was with avoiding bladder irritants and possible trial of anticholinergic medications. He recently established care with his primary care physician and discussed his symptoms. It sounds now, as he describes it, in addition to the irritative symptoms, which now included urinary urgency and rushing to the bathroom, that he has also been having obstructive symptoms including a decreased urinary stream,which trickles out at times. He does not have a history of urinary retention or gross hematuria. Nohistory of kidney problems or kidney stones. He was recommended a trial of tamsulosin, but has not yet started this. He has not taken anything else for his urinary symptoms to date. He recently had inguinal hernia surgery and does not report having any significant voiding symptoms after this. Otherwise, he has no current complaints. A comprehensive review was performed. Pertinent positives as per HPI. All others are negative. His past medical history includes BPH, asthma, bronchitis, right inguinal hernia. Medications include ibuprofen and vitamins in addition to the recently prescribed tamsulosin. He has no medication allergies. He reports being a nonsmoker, social alcohol use, denies illicit drug use. On his father's side, his father's 2 brothers both have a history of prostate cancer. It sounds like his father has had intervention for bothersome voiding symptoms. On physical exam, he is alert and oriented x3, not in acute distress. Head is normocephalic. Eyes are anicteric. Neck is supple, no palpable adenopathy. Normal respiratory effort. No external skin lesions. Abdomen: Soft, nontender, nondistended. No costovertebral angle tenderness bilaterally. Rectal exam reveals a mildly enlarged gland with no nodularity, asymmetry or induration. A recent PSA wasobtained and returned at a level of 2.6, and his urinalysis today has trace intact blood, but is otherwise negative. Going forward, I suggested, as his primary care physician did, a trial of tamsulosin. An alpha ruben would be the initial management for abolishing mixed urinary symptoms in men. We talked about the expectations from the medication as well as the side effects. He is going to give this a try and let us know how he does. If this works well, he can certainly follow with his primary care physician.If his symptoms are not improved sufficiently, then certainly we can see him back and discuss otherpossible medications. We also talked about surgical intervention. If we got to the point where he does not wish to be on medications or other medications do not work. I would continue to follow him on a yearly basis as well with digital rectal exam and PSA based on the family history. documented in this encounter Plan of Treatment Upcoming Encounters Date Type Department Care Team (Late st Contact Info) Description 05/27/2024 9:45 EDT Office Visit [facility] Ophthalmology - [address] [id number] Yahir Cuevas MD [address] [place] [address], [address] [place] [phone] Scheduled Orders Name Type Priority Associated Diagnoses Orde r Schedule UROLOGY BLADDER SCAN Procedure Routine BPH w urinary obs/LUTS Ordered: 03/24/2017 documented as of this encounter Procedures Procedure Name Priority Date/Time Associated Diagnosis Comments POCT URINE DIPSTICK, CLINITEK Routine 03/24/2017 15:35 EDT BPH w urinary obs/LUTS documented in this encounter Results * (ABNORMAL) POCT URINE DIPSTICK (03/24/2017 15:35 EDT) Color YELLOW 03/24/2017 15:35 EDT [facility] Clarity, UA Clear 03/24/2017 15:35 EDT [facility] Glucose Neg Neg 03/24/2017 15:35 EDT [facility] Bilirubin Neg Neg 03/24/2017 15:35 EDT [facility] Ketones Neg Neg 03/24/2017 15:35 EDT [facility] Specific [place] 1.020 1.001 - 1.035 03/24/2017 15:35 EDT [facility] Blood Trace(A) Neg 03/24/2017 15:35 EDT [facility] pH 6.5 4.6 - 8.0 03/24/2017 15:35 EDT [facility] Protein Neg Neg 03/24/2017 15:35 EDT [facility] Urobilinogen 1.0 0.2 - 1.0 E.U./dl 03/24/2017 15:35 EDT [facility] Nitrite Neg Neg 03/24/2017 15:35 T [facility] Leuk Esterase Neg Neg 03/24/2017 15:35 EDT [facility] jumpbasting collar baster ID [id number] 03/24/2017 15:35 EDT [facility] Comment:Test performed at [facility] Urine specimen (specimen) URINE / Unknown 03/24/2017 15:35 EDT 03/24/2017 15:36 EDT Kirby Cortés MD POINT OF CARE TEST ORDERABLES [facility] [address] [place] [address] documented in this encounter Visit Diagnoses Diagnosis BPH w urinary obs/LUTS- Primary documented in this encounter Historical Medications * This list may reflect changes made after this encounter. Medication Sig Dispensed Refills Start Date End Date Vit A,C,W-Fbem-Convtb (ICAPS AREDS) capsule Take 1 Cap by mouth daily. 10/25/2021 added in this encounter Care Teams Museum Tour Guide Relationship Specialty Start Date End Date Rambo Hartley RPA [address] [place] [address] PCP - General 01/09/17 09/25/20 documented as of this encounter
--- OUTSIDE RECORDS SUMMARY | 2024-03-24 14:33 | XMS_ITS | Encounter Summary ---
Author Organization [facility] Address [address] [place] [address] Care Team Providers Care Lamp Shades Supervisor Name Role Phone Nia Molina ENVIRONMENTAL SERVICES TECH Primary Care Provider Encounter Details Date Type Department Care Team (Latest Contact Info) Description 10/23/2020 Travel Social History Tobacco Use Types Packs/Day Years [...] 12:32 EDT documented as of this encounter Plan of Treatment Upcoming Encounters Date Type Department Care Team (Late st Contact Info) Description 05/27/2024 9:45 EDT Office Visit [facility] Ophthalmology - [facility] [address] [place] [address] Yahir Cuevas MD 111 [facility] [address] [place] [address] documented as of this encounter Visit Diagnoses Not on filedocumented in this encounter Care Teams Lamp Shades Supervisor Relationship Specialty Start Date End Date Nia Molina NP [address] [place] [phone] PCP - General Family Medicine - Primary Care 09/26/20 08/06/21 documented as of this encounter
--- OUTSIDE RECORDS SUMMARY | 2024-03-24 14:33 | XMS_ITS | Encounter Summary ---
Author Organization [facility] Address [address] [place] [address] Care Team Providers Care Teradata Solution Architect Name Role Phone Yahir Spain MD Primary Care Provider Unavaila ble Reason for Visit * Reason Onset Date Comments Eye Problem 03/21/2015 in the mornings, pt has been noticing a wavy film across his vision, for a few weeks in both eyes (per ) is at work right now, and may not be able to be reached. Encounter Details Date Type Department Care Team (Late st Contact Info) Description 03/21/2015 Telephone [facility] Ophthalmology - [address] [place] [phone] Daniel Peres MD 111 [facility], [address] [place] [address] Eye Problem (in the mornings, pt has been noticing a wavy film across his vision, for a few weeks in both eyes (per ) is at work right now, and may not be able to be reached.) Social History Tobacco Use Types Packs/Day Years [...] encounter Miscellaneous Notes * Telephone Encounter - Nichelle Cagle - 03/28/2015 1834 EDT Scheduled with [facility] for 8.28.15. The patient has been notified. * Telephone Encounter - Nichelle Cagle - 03/26/2015 0918 EDT I called th e patient, but there was no answer, no voicemail * Telephone Encounter - Nayely Patel, JERROD - 03/22/2015 0856 EDT Per Lazara she spoke with Dr. Guthrie and he advises pt see Dr. Peres next week. She gave the information to Karis to call pt and schedule. * Telephone Encounter - Maryjane Spain OTA - 03/21/2015 1629 EDT Pt called to report that pt experiences waviness x 2 weeks at beginning of day and improves throughout the day in both eyes. Looks like a sheet of water. Notes difficulty seeing in dimmer. documented in this encounter Plan of Treatment Upcoming Encounters Date Type Department Care Team (Late st Contact Info) Description 05/27/2024 9:45 EDT Office Visit [facility] Ophthalmology - [address] [phone] Yahir Cuevas MD [address] [place] [address], [address] [place] [phone] documented as of this encounter Visit Diagnoses Not on filedocumented in this encounter Care Teams Teradata Solution Architect Relationship Specialty Start Date End Date Yahir Spain MD PCP - General 12/23/12 01/08/17 documented as of this encounter
--- OUTSIDE RECORDS SUMMARY | 2024-03-24 14:33 | XMS_ITS | Patient Health Record ---
Author Organization [facility] Address [address] [place] [address] Care Team Providers Care Provider Scribe Name Role Phone NO, PCP Primary Care Provider Kavya Leigh MD, [facility] Jayme Unavailable Allergies No Known Allergies Reason For Referral No Information Medications Medication SIG (Take, Route, Fr equency, Duration) Notes Start Date End Date Status Ibuprofen prn Active PreserVision AREDS A ctive Fish Oil Active Problems Problem Type SNOMED Code ICD Code Onset Dates Problem Status W/U Status Risk Notes Problem [id number] Primary osteoarthrit is, 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
--- OUTSIDE RECORDS SUMMARY | 2024-03-24 14:33 | XMS_ITS | Encounter Summary ---
Author Organization [facility] Address [address] [place] [address] Care Team Providers Care Granite Setter Name Role Phone Nia Molina MILLING MACHINE OPERATOR Primary Care Provider [phone] Encounter Details Date Type Department Care Team (Latest Contact Info) Description 09/26/2020 Travel Social History Tobacco Use Types Packs/Day [...] have Coronavirus / COVID-19? No / Unsure 09/26/2020 15:47 EST documented as of this encounter Plan of Treatment Upcoming Encounters Date Type Department Care Team (Late st Contact Info) Description 05/27/2024 9:45 EDT Office Visit [facility] Ophthalmology - [facility] [address] [place], [place] [phone] Yahir Cuevas MD [address] [facility], [address] [place] [address] documented as of this encounter Visit Diagnoses Not on filedocumented in this encounter Care Teams Granite Setter Relationship Specialty Start Date End Date Nia Molina NP [address] [place] [phone] PCP - General Family Medicine - Primary Care 09/26/20 1 documented as of this encounter
--- OUTSIDE RECORDS SUMMARY | 2024-03-24 14:33 | XMS_ITS | Encounter Summary ---
Author Organization [facility] Address [address] [place] [address] Care Team Providers Care Sports Complex Attendant Name Role Phone Jesse Nia Julio CHAMBER WORKER Primary Care Provider [phone] Encounter Details Date Type Department Care Team (Late st Contact Info) Description 10/02/2020 Orders Only [facility] Radiology [address] [phone] Benito Renee DO [address] [place] [address], [address] [place] [address] Social History Tobacco Use Types [...] Info) Description 05/27/2024 9:45 EDT Office Visit [facility] Ophthalmology [address] [phone] Yahir Cuevas MD 111 [facility], [address] [place] [phone] documented as of this encounter Visit Diagnoses Not on filedocumented in this encounter Care Teams Sports Complex Attendant Relationship Specialty Start Date End Date Nia Molina NP [address] [place] [phone] PCP - General Family Medicine - Primary Care 09/26/20 08/06/21 documented as of this encounter
--- OUTSIDE RECORDS SUMMARY | 2024-03-24 14:33 | XMS_ITS | Encounter Summary ---
Author Organization [facility] Address [address] [place] [address] Care Team Providers Care Sales And Service Change Leader Name Role Phone Rambo Hartley [facility] Primary Care Provider [phone] Reason for Referral * (Routine) - Closed Specialty Diagnoses / Procedures Referred By Brennan dawson Referred To Contact Diagnoses Nonexudative senile macular degeneration of retina Procedures EYE PHOTOGRAPHY (FUNDUS) Daniel Peres MD [address] [place] [phone] Referral ID Status Reason Start Date Expiration Date Visits Re quested Visits Authorized [id number] Closed 04/03/2017 1 1 Reason for Visit * Reason Comments Eye Problem 1yr f/u Mod. NNV AMD -both eyes, PVD- right eye, VS- left eye, Mild NSC- both eyes. Encounter Details Date Type Department Care Team (Late st Contact Info) Description 04/03/2017 9:00 EDT Office Visit [facility] Ophthalmology - [facility] [address] [place] [address] Daniel Peres MD [address] [place] [phone] Social History Tobacco Use Types Packs/Day [...] Progress Notes * Daniel Peres MD - 04/03/2017 0900 EDT Chief Complaint Patient presents with ??? Eye Problem 1yr f/u Mod. NNV AMD-both eyes, PVD- right eye, VS- left eye, Mild NSC- both eyes. HPI Location: Both eyes Pain: 0 - No pain Quality: Blurry Severity: Moderate Duration: Years Timing: Constant Lasts: Continuous Context: 1yr f/u Mod. NNV AMD-both eyes, PVD- right eye, VS- left eye, Mild NSC- both eyes. Modifying factors: ATs, glasses Associated Signs & Symptoms: VA is a little worse. Saw Dr. Gomez about 6 months who stated that his glass rx should be updated but that he should wait a little while. No new flashes or floaters. No eye pain. Doing OK Having a little issue with his progressive both months Getting used to them, and as time goes on he gets better using them Time for a new pair of glasses He sees better with a new pair he is supposed to get Visual Fluctuations: None Attestation: Base Eye Exam Visual Acuity (Snellen - Linear) Right Left Dist sc 20/20 20/20 Tonometry (Applanation, 9:30) Right Left Pressure 17 13 Pupils Pupils Dark Light React APD Right PERRL 4 3 Brisk None Left PERRL 4 3 Brisk None Visual Singer Right Left Result Full Full Extraocular Movement Right Left Result Full, Ortho Full, Ortho Neuro/Psych Oriented x3: Yes Mood/Affect: Normal Dilation Both eyes: 1.0% Mydriacyl, 2.5% Phenylephrine @ 9:33 Slit Lamp and Fundus Exam Slit Lamp Exam Right Left Lids/Lashes Blepharitis Blepharitis Conjunctiva/Sclera White and quiet Injection Cornea Clear pterygium Anterior Chamber Deep and quiet Deep and quiet Iris Round and reactive Round and reactive Lens 1+ Nuclear sclerosis 1+ Nuclear sclerosis Vitreous Posterior vitreous detachment Posterior vitreous detachment Fundus Exam Right Left Disc Normal Normal C/D Ratio 0.3 0.3 Macula extensive large drusen large drusen Vessels Normal Normal Periphery scar 6, 7 Normal All five layers of the cornea are normal unless otherwise specified. Please refer to large retinal drawing. IMAGING: Fundus photos done today IMPRESSION: 1. Nonexudative senile macular degeneration of retina EYE PHOTOGRAPHY (FUNDUS) 2. PVD (posterior vitreous detachment), bilateral 3. Nuclear senile cataract, bilateral PLAN: Mod NNV AMD both eyes Photos today Continue Areds vits and regular Amsler Observe 1 year here, 6 months with [place]au PVD both eyes, no holes or tears RD warnings reviewed Follow Mild NSC both eyes, presurgical Observe Recheck 1 year, sooner prn I, Dr. Daniel Peres, have performed my own HPI and reviewed the tech's ROS. I have also reviewed thepatient's past medical, family, social and surgical history, as well as the patient's medications, allergies, and problem list. I am scribing for Daniel Peres MD while he is personally performing the service. HARRY Hussein (Scribe) documented in this encounter Plan of Treatment Upcoming Encounters Date Type Department Care Team (Late st Contact Info) Description 05/27/2024 9:45 EDT Office Visit [facility] Ophthalmology - [address] [address] Yahir Cuevas MD [address] [facility], [address] [place] [phone] Scheduled Orders Name Type Priority Associated Diagnoses Orde r Schedule EYE PHOTOGRAPHY (FUNDUS) Ophthalmology Routine Nonexudative senile macular degeneration of retina Ordered: 04/03/2017 documented as of this encounter Visit Diagnoses Diagnosis Nonexudative senile macular degeneration of retina- Primary PVD (posterior vitreous detachment), bilateral Nuclear senile cataract, bilateral documented in this encounter Eye Exam Visual Acuity (Snellen - Linear) Right eye Left eye Dist sc 20/20 20/20 Tonometry (Applanation, 9:30) Right eye Left eye Pressure 17 13 Pupils Pupils Dark Light React APD Right eye PERRL 4 3 Brisk None Left eye PERRL 4 3 Brisk None Visual Singer Right eye Left eye Full Full Extraocular Movement Right eye Left eye Full, Ortho Full, Ortho Neuro/Psych Oriented x3: Yes Mood/Affect: Normal Dilation Both eyes: 1.0% Mydriacyl, 2 .5% Phenylephrine @ 9:33 Slit Lamp Exam Right eye Left eye Lids/Lashes Blepharitis Blepharitis Conjunctiva/Sclera White and quiet Injection Cornea Clear pterygium Anterior Chamber Deep and quiet Deep and quiet Iris Round and reactive Round and radhika ctive Lens 1+ Nuclear sclerosis 1+ Nuclear sclerosis Vitreous Posterior vitreous detachment Po sterior vitreous detachment Fundus Exam Right eye Left eye Disc Normal Normal C/D Ratio 0.3 0.3 Macula extensive large drusen large anjel sen Vessels Normal Normal Periphery scar 6, 7 Normal Care Teams Sales And Service Change Leader Relationship Specialty Start Date End Date Rambo Hartley RPA [address] [place] [id number] PCP - General 01/09/17 09/25/20 documented as of this encounter
--- OUTSIDE RECORDS SUMMARY | 2024-03-24 14:33 | XMS_ITS | Encounter Summary ---
Author Organization [facility] Address [address] [place] [address] Care Team Providers Care Client Account Representative Name Role Phone Evelyne Hartleyrick Janeth [facility] Primary Care Provider [phone] Reason for Referral * (Routine) - New Request Specialty Diagnoses / Procedures Referred By Brennan dawson Referred To Contact Diagnoses Intermediate stage nonexudative age-related macular degeneration of both eyes Procedures OCT (OPHTHALMIC DIGITAL IMAGING, POSTERIOR SEGMENT) Yahir Cuevas MD [address] [place] [address], [facility] [address] [place] [address] Referral ID Status Reason Start Date Expiration Date V isits Requested Visits Authorized [id number] New Request 04/27/2018 1 1 Reason for Visit * Reason Comments Macular Degeneration Pt. here for eye ex am with H/O NNV AMD both eyes, PVD both eyes, NS cat both eyes. Pt. states VA over time decrease, challenges at night with driving, in past small black spot in vision when first getting up now is larger and takes a while to leave, eye are dry, floaters on occ. no mention of new floaters, no flashes but blue or green tint in vision at times, no eye pain. Medication Management Pt. will take AT P RN, and AREDS Encounter Details Date Type Department Care Team (Late st Contact Info) Description 04/23/2018 10:30 EDT Office Visit [facility] Ophthalmology - [address] [phone] Yahir Cuevas MD [address] [place] [address] [address] [place] [phone] Social History Tobacco Use Types [...] Progress Notes * Yahir Cuevas MD - 04/23/2018 1030 EDT Chief Complaint Patient presents with ??? Macular Degeneration Pt. here for eye exam with H/O NNV AMD both eyes, PVD both eyes, NS cat both eyes. Pt. states VA over time decrease, challenges at night with driving, in past small black spot in vision when first getting up now is larger and takes a while to leave, eye are dry, floaters on occ. no mention of new floaters, no flashes but blue or green tint in vision at times, no eye pain. ??? Medication Management Pt. will take AT PRN, and AREDS HPI Location: Both eyes Pain: 0 - No pain Quality: Blurry Severity: Moderate Duration: Years Timing: Constant Lasts: Continuous Context: Pt. here for eye exam with H/O NNV AMD both eyes, PVD both eyes, NS cat both eyes. Pt. states VA over time decrease, challenges at night with driving, in past small black spot in vision whenfirst getting up now is larger and takes a while to leave, eye are dry, floaters on occ. no mentionof new floaters, no flashes but blue or green tint in vision at times, no eye pain. Modifying factors: DFE, OCT Associated Signs & Symptoms: Blurry vision Visual Fluctuations: Floaters Attestation: Here for follow up dry AMD. Vision declining in the distance for about a year. Night vision getting worse. Both eyes. No pain, no pressure. Has floaters. No flashes. Base Eye Exam Visual Acuity (Snellen - Linear) Right Left Dist sc 20/20 -2 20/20 -2 Tonometry (Applanation, 10:52) Right Left Pressure 10 11 Pupils Dark Light React APD Right 5 3 Brisk None Left 5 3 Brisk None Visual Singer Right Left Result Full Full Extraocular Movement Right Left Result Full Full Neuro/Psych Oriented x3: Yes Mood/Affect: Normal Dilation Both eyes: 1.0% Mydriacyl, 2.5% Phenylephrine @ 10:52 Additional Tests Amsler Right Left Amsler Normal Normal Color Right Left Ishihara 11/12 12/12 Slit Lamp and Fundus Exam Slit Lamp Exam Right Left Lids/Lashes Normal Normal Conjunctiva/Sclera White and quiet White and quiet Cornea Clear Pterygium Anterior Chamber Deep and quiet Deep and quiet Iris Round and reactive Round and reactive Lens Nuclear sclerosis Nuclear sclerosis Vitreous Posterior vitreous detachment Posterior vitreous detachment Fundus Exam Right Left Disc Normal Normal C/D Ratio 0.3 0.3 Macula large confluent drusen large confluent drusen Vessels Normal Normal Periphery Normal Normal Please refer to large retinal drawing. IMAGING: OCT REPORT Indications: Age-related Macular Degeneration Findings: Right Eye Left Eye Drusen, no fluid. OCT-A no CNV but some extrafoveal choriocapillaris drop-out Drusen, no fluid. OCT-A no CNV but some extrafoveal choriocapillaris drop-out Original test to be found in patients shadow chart IMPRESSION: 1. Intermediate stage nonexudative age-related macular degeneration of both eyes 2. PVD (posterior vitreous detachment), bilateral 3. Nuclear senile cataract, bilateral PLAN: Dry AMD, both eyes Drusen, no geographic atrophy but some precursor chorocapillaris drop-out - extra-foveally. Continue AREDS 2 vitamins and Amsler grid Observe PVD both eyes No holes or tears RD precautions NS cataract both eyes Not visually significant Observe Return in about 1 year (around 04/23/2019), or if symptoms worsen or fail to improve, for OCT Macular. I, Dr. Yahir Cuevas, have performed my own HPI and reviewed the tech's ROS. I have also reviewed thepatient's past medical, family, social and surgical history, as well as the patient's medications, allergies, and problem list. I am scribing for Dr. Yahir Cuevas MD while he is personally performing the service. ARMANDO Calvillo (Scribe) documented in this encounter Plan of Treatment Upcoming Encounters Date Type Department Care Team (Late st Contact Info) Description 05/27/2024 9:45 EDT Office Visit [facility] Ophthalmology - [address] [phone] Yahir Cuevas MD [address] [facility], [address] [place] [phone] Scheduled Orders Name Type Priority Associated Diagnoses Orde r Schedule OCT (OPHTHALMIC DIGITAL IMAGING, POSTERIOR SEGMENT) Ophthalmology Routine Intermediate stage nonexudative age-related macular degeneration of both eyes Ordered: 04/27/2018 documented as of this encounter Visit Diagnoses Diagnosis Intermediate stage nonexudative age-related macular degeneration of both eyes- Primary PVD (posterior vitreous detachment), bilateral Nuclear senile cataract, bilateral documented in this encounter Eye Exam Visual Acuity (Snellen - Linear) Right eye Left eye Dist sc 20/20 -2 20/20 -2 Tonometry (Applanation, 10:52) Right eye Left eye Pressure 10 11 Pupils Dark Light React APD Right eye 5 3 Brisk None Left eye 5 3 Brisk None Visual Singer Right eye Left eye Full Full Extraocular Movement Right eye Left eye Full Full Neuro/Psych Oriented x3: Yes Mood/Affect: Normal Dilation Both eyes: 1.0% Mydriacyl, 2 .5% Phenylephrine @ 10:52 Amsler Right eye Left eye Normal Normal Color Right eye Left eye Ishihara 11/12 12/12 Slit Lamp Exam Right eye Left eye Lids/Lashes Normal Normal Conjunctiva/Sclera White and quiet White and yenni et Cornea Clear Pterygium Anterior Chamber Deep and quiet Deep and quiet Iris Round and reactive Round and radhika ctive Lens Nuclear sclerosis Nuclear sclero sis Vitreous Posterior vitreous detachment Po sterior vitreous detachment Fundus Exam Right eye Left eye Disc Normal Normal C/D Ratio 0.3 0.3 Macula large confluent drusen large con fluent drusen Vessels Normal Normal Periphery Normal Normal Care Teams Client Account Representative Relationship Specialty Start Date End Date Rambo Hartley RPA [address] AMANDA [address] [place] [id number] PCP - General 01/09/17 09/25/20 documented as of this encounter
--- OUTSIDE RECORDS SUMMARY | 2024-03-24 14:33 | XMS_ITS | Encounter Summary ---
Author Organization [facility] Address [address] [place] [address] Care Team Providers Care Retail Representative Name Role Phone Yahir Spain MD Primary Care Provider Unavaila ble Reason for Visit * Reason Comments Macular Degeneration Referral from Dr. Maritza ruiz for consult for soft drusen Left>Right. Gradual decline in DV and NV. No flashes, floaters or eyepain. Headaches weekly. Pt states no DM. Eye Pain Left eye pain 5/10 l asting secs apprx 2 times per week for several months. Encounter Details Date Type Department Care Team (Late st Contact Info) Description 12/24/2012 9:15 EDT Office Visit [facility] Ophthalmology - [address] [phone] Daniel Peres MD [address] [facility], [address] [place] [address] Social History Tobacco Use Types [...] Sign Reading Time Taken Comments Blood Pressure 122/80 12/24/2012 0924 EDT Pulse - - Temperature - - Respiratory Rate - - Oxygen Saturation - - Inhaled Oxygen Concentration - - Weight - - Height - - Body Mass Index - - documented in this encounter Progress Notes * Daniel Peres MD - 12/24/2012 0959 EDT Chief Complaint Patient presents with ??? Macular Degeneration Referral from Dr. Gomez for consult for soft drusen Left>Right. Gradual decline in DV and NV. No flashes, floaters or eyepain. Headaches weekly. Pt states no DM. ??? Eye Pain Left eye pain 5/10 lasting secs apprx 2 times per week for several months. HPI Location: Both eyes Pain: 0 - No pain Quality: Blurry Severity: Moderate Duration: Years Timing: Constant Lasts: Continuous Context: Nv blurry Modifying factors: RX spectacles help with blurry NV. No flashes. No floater Associated Signs & Symptoms: Left eye pain 5/10 lasting secs apprx 2 times per week for severalmonths. Visual Fluctuations: None Feels like he sees well for near, occasional blurring with both eyes when staring at something for a long time. Better with blinking Attestation: Base Ophthalmology Exam Visual Acuity Right Left Dist sc 20/20 -1 20/25 Dist ph sc 20/25+2 Near cc J1+ J1+ Method: Snellen - Linear Correction: Glasses Comments: NVcc taken with +2.00 loose lens Tonometry Right Left Pressure 12 13 Method: Applanation Time: 9:20 Color Right Left Color 05/16 05/16 Method: AO PIP Dilation Both eyes: 1.0% Mydriacyl, , 2.5% Phenylephrine @ 9:22 Pupils Dark React APD Right 6 Brisk None Left 6 Brisk None Visual Singer Right Left Result Full Full Extraocular Movement Right Left Result Full, Ortho Full, Ortho Base Ophthalmology Exam Addl. Tests Amsler Right Left Amsler Normal Normal Main Ophthalmology Exam Slit Lamp Exam Right Left Lids/Lashes Blepharitis Blepharitis Conjunctiva/Sclera Injection 2+ Injection Cornea Clear Pterygium Anterior Chamber Deep and quiet Deep and quiet Iris Round and reactive Round and reactive Lens Trace Nuclear sclerosis Trace Nuclear sclerosis Vitreous Vitreous syneresis Vitreous syneresis Fundus Exam Right Left Disc Normal Normal C/D Ratio 0.25 0.2 Macula moderate medium/large drusen moderate medium/large drusen Vessels Normal Normal Periphery Normal Normal Neuro/Psych Oriented x3: Yes Mood/Affect: Normal All five layers of the cornea are normal unless otherwise specified. Please refer to large retinal drawing. IMAGING: OCT REPORT Indications: Age-related Macular Degeneration Findings: Right Eye Left Eye Drusen Drusen Original test to be found in patients shadow chart IMPRESSION: 1. Nonexudative senile macular degeneration of retina 2. Vitreous syneresis 3. Peripheral pterygium, stationary 4. Senile nuclear sclerosis PLAN: Mod NNV AMD both eyes, discussed AREDS 2 vit Daily amsler, recheck 6 months Vit Syn both eyes, no PVD Pterygium left eye, not visually significant Mild NSC both eyes, not VS Recheck 6months I, Dr. Daniel Peres, have performed my [...] Description 05/27/2024 9:45 EDT Office Visit [facility] Ophthalmology - [address] [address] Yahir Cuevas MD [address] [facility], [address] [place] [address] documented as of this encounter Visit Diagnoses Diagnosis Nonexudative senile macular degeneration of retina- Primary Vitreous syneresis Other vitreous opacities Peripheral pterygium, stationary Senile nuclear sclerosis documented in this encounter Historical Medications * This list may reflect changes made after this encounter. Medication Sig Dispensed Refills Start Date End Date Sahuarita-3 Fatty Acids-Vitamin E 1,000 mg capsule Take 2,000 mg by mouth daily. ibuprofen (ADVIL) 200 mg tablet Take 200 mg by mouth every 6 hours as needed. 10/25/2021 added in this encounter Eye Exam Visual Acuity (Snellen - Linear) Right eye Left eye Dist sc 20/20 -1 20/25 Dist ph sc 20/25+2 Near cc J1+ J1+ Correction: Glasses NVcc taken with +2.00 loose lens Tonometry (Applanation, 9:20) Right eye Left eye Pressure 12 13 Pupils Dark React APD Right eye 6 Brisk None Left eye 6 Brisk None Visual Singer Right eye Left eye Full Full Extraocular Movement Right eye Left eye Full, Ortho Full, Ortho Neuro/Psych Oriented x3: Yes Mood/Affect: Normal Dilation Both eyes: 1.0% Mydriacyl, , 2.5% Phenylephrine @ 9:22 Amsler Right eye Left eye Normal Normal Color Right eye Left eye AO PIP 05/16 05/16 Slit Lamp Exam Right eye Left eye Lids/Lashes Blepharitis Blepharitis Conjunctiva/Sclera Injection 2+ Injection Cornea Clear Pterygium Anterior Chamber Deep and quiet Deep and quiet Iris Round and reactive Round and radhika ctive Lens Trace Nuclear sclerosis Trace Nu clear sclerosis Vitreous Vitreous syneresis Vitreous syne resis Fundus Exam Right eye Left eye Disc Normal Normal C/D Ratio 0.25 0.2 Macula moderate medium/large drusen mod erate medium/large drusen Vessels Normal Normal Periphery Normal Normal Care Teams Retail Representative Relationship Specialty Start Date End Date Yahir Spain MD PCP - General 12/23/12 01/08/17 documented as of this encounter
--- OUTSIDE RECORDS SUMMARY | 2024-03-24 14:33 | XMS_ITS ---
Author Organization Zeke Arreaga [facility] Address [address] [facility] [address] [place] [address] Care Team Providers Care Digital Sales Assistant Name Role Phone NO, PCP Primary Care Provider Unavaildarlene Leigh MD, [facility] Unavailable REASON FOR VISIT 1 month left elbow f/u Medications Medication SIG (Take, Route, Fr equency, Duration) Notes Start Date End Date Status Ibuprofen prn Active PreserVision AREDS A ctive Fish Oil Active Vital Signs Weight 160 lbs 10/31/2022 Height 69 in 10/31/2022 BMI 23.63 kg/m2 10/31/2022 Encounters Encounter Location Date Provider Diagnosis [facility] [address] [facility] [address] [place] [address] 10/31/2022 Jayme Leigh Left elbow pain M25.522 ; Left hand pain M79.642 ; Epicondylitis, lateral, left M77.12 ; Primary osteoarthritis, left hand M19.042 and Contusion of left elbow, sequela S50.02XS Assessments Encounter Date Diagnosis (ICD Code) Assessment Notes Treatment Notes Treatment Clinical Notes 10/31/2022 Left elbow pain (ICD-10 - M25.522) 10/31/2022 Left hand pain (ICD-10 - M79.642) 10/31/2022 Epicondylitis, lateral, left (ICD-10 - M77.12) Elbow significantly better. He will continue with home exercises and modified activities. Bracing as needed. 10/31/2022 Primary osteoarthritis, left hand (ICD-10 - M19.042) He has extensive degenerative changes of his right thumb status post chisel injury as well as to a skill saw injuries. Prior injection did cause syncopal episode but it was a prolonged injection process. He has tried physical therapy and CMC bracing without success. He would like to hold off on surgery for now. Repeat injection will be considered although he has had syncopal episode with prior CMC injection. Extensive questions answered in depth today. Topical medications have not been helpful. Has degenerative changes which may cause long-term disability and dysfunction Pros and cons of surgical vs non-surgical treatment discussed in depth with patient. May have intermittent symptoms Relative rest Activity modification was discussed as well as the use of heat and ice. The patient was given proper education for the condition and treatment including risks and precautions. Patient verbalizes understanding. Analgesics PRN Physical therapy Home Exercise Program. The patient will follow up as needed 10/31/2022 Contusion of left elbow, sequela (ICD-10 - S50.02XS) Plan Of Treatment Treatment Notes Assessment Notes Epicondylitis, lateral, left Elbow signi ficantly better. He will continue with home exercises and modified activities. Bracing as needed. Primary osteoarthritis, left hand He has extensive degenerative changes of his right thumb status post chisel injury as well as to a skill saw injuries. Prior injection did cause syncopal episode but it was a prolonged injection process. He has tried physical therapy and CMC bracing without success. He would like to hold off on surgery for now. Repeat injection will be considered although he has had syncopal episode with prior CMC injection. Extensive questions answered in depth today. Topical medications have not been helpful. Has degenerative changes which may cause long-term disability and dysfunction Pros and cons of surgical vs non-surgical treatment discussed in depth with patient. May have intermittent symptoms Relative rest Activity modification was discussed as well as the use of heat and ice. The patient was given proper education for the condition and treatment including risks and precautions. Patient verbalizes understanding. Analgesics PRN Physical therapy Home Exercise Program. The patient will follow up as needed Next Appt Details Follow Up: prn, Reason: Progress Notes * Michelet RAMIREZJuliaOB: (61 yo M)Acc No.[id number]:10/31/2022 Progress Note Patient:Kirt Michael Provider:?Jayme Leigh MD :1960???Age:61 Y???Sex:Male David e:10/31/2022 [facility] [address] [place] [phone] Pcp:PCP NO Subjective: * Chief Complaints: * ???1 month left elbow f/u * HPI: ???Present complaints:? EP ?LT elbow f/u ?Last OV 09/12/22 ?Onset around 03/2022 ?RHD ?Bracing ?Pain is now significantly better than last. ?Doing HEP daily which has helped a lot. ?LT thumb f/u ?Symptoms have remained the same. ?Pain near the CMC joint. ?Would like to discuss further options. * Medical History:? * Surgical History:?inguinal h ernia repair * Hospitalization/Major Diagno stic Procedure:? * Family History:?Father: canc er, melanomadiabetes.?Mother: brain tumor, .?Sister: diabetes.? 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 * Medications:?TakingFish Oil PreserVision AREDS Ibuprofen , Notes: prnTaking Fish Oil Taking PreserVision AREDS Taking Ibuprofen , Notes: prn Objective: * Vitals:?HR78, Wt160, Ht 69, BMI23.63. * Examination: ???Hannah PE: ???ELBOW(S): Left ?OBJECTIVE: Pleasant, well nourished, well hydrated, in no apparent distress. Alert and oriented x3, well-groomed with appropriate mood and affect. ?INSPECTION: No erythema, bruising or swelling is appreciated along the medial or lateral aspect(s) of the elbow. Distal upper arm and proximal forearm have no appreciable abnormalities. Elbow carrying angle is grossly normal. ?PALPATION: No tenderness is appreciated over the distal biceps and triceps muscles or tendons. No lateral epicondylar tenderness is identified. No tenderness is appreciated over the olecranon or olecranon bursa. No tenderness is appreciated over the radial head. No tenderness is appreciated over the proximal ulna. Moderate tenderness is appreciated over the common extensor tendon. No tenderness is appreciated over the common flexor tendon. No tenderness is identified over the radial tunnel. ?ROM: Elbow range of motion is 0 to 135 degrees. ?STRENGTH TESTING: Elbow flexion and extension, pronation and supination strength is grossly normal ?STABILITY: No valgus laxity is appreciated with stress testing. ?NEUROVASCULAR: Regional sensation, skin temperature, and hair growth are normal. Pulses at the elbow and the wrist are normal. ?SPECIAL TESTING: ECRB and Tennis elbow tests are positive. ?HAND & WRIST(S): Left ?INSPECTION: No deformity, erythema, ecchymosis or discoloration is noted. No lacerations are appreciated. Gross alignment is normal. Mild base of the thumb swelling. ?PALPATION: No tenderness over the distal radius or ulna. No tenderness in the anatomical snuffbox. Mild radial sided carpal bone tenderness. Moderate thumb basilar joint and mild MP joint tenderness. No IP or phalangeal tenderness. ?ROM: Wrist extension, flexion, supination, and pronation are normal. Moderate loss of motion of the basilar joints. ?STRENGTH: Mild nonfocal weakness of the intrinsics. ?SENSATION: Median, ulnar, and radial nerve distribution and sensation are normal. ?VASCULAR: Pulses, capillary refill, and skin temperature are grossly normal. ?SPECIAL TESTING: Positive load and grind test. Assessment: * Assessment: 1.?Left elbow pain - M25.522 (Primary)?2.?Left hand pain - M79.642?3.?Epicondylitis, lateral, left - M77.12?4.?Primary osteoarthritis, left hand - M19.042?5.?Contusion of left elbow, sequela - S50.02XS? EXAM: LEFT ELBOW 09/12/22 No obvious acute fracture but evaluation for possible fractures is limited without an internal oblique or external oblique radiograph. Mild ulnohumeral joint degenerative changes. Radiohumeral joint appears normal. Common flexor tendon enthesophyte or calcification. Large well-corticated ossicle along with a tiny separate ossicle at its distal edge posterior to olecranon most consistent with ununited old fracture fragments. Approximately 3 mm long by less than 1 mm transverse dense opacity in lateral distal upper arm soft tissue. IMPRESSION Chronic findings I have personally reviewed the imaging. EXAM: LEFT HAND 09/12/22 Evaluation of portions of fourth and fifth fingers for possible fractures is limited due to partial superposition on the lateral radiograph. In the rest of the hand there is no evidence of a fracture. Overall no dislocation or radiopaque foreign body. There is severe first carpometacarpal joint space narrowing with prominent proliferative bone formation. Mild second through fifth DIP and third through fifth PIP joint degenerative changes are noted. IMPRESSION Degenerative changes as noted above. Evaluation of fourth and fifth fingers for possible fractures is limited, otherwise, no fracture identified. I have personally reviewed the imaging. Plan: * Treatment: 2.?Primary osteoarthritis, l eft hand? Notes: He has extensive degenerative changes of his right thumb status post chisel injury as well as to a skill saw injuries. Prior injection did cause syncopal episode but it was a prolonged injection process. He has tried physical therapy and CMC bracing without success. He would like to hold off on surgery for now. Repeat injection will be considered although he has had syncopal episode with prior CMC injection. Extensive questions answered in depth today. Topical medications have not been helpful. Has degenerative changes which may cause long-term disability and dysfunction Pros and cons of surgical vs non-surgical treatment discussed in depth with patient. May have intermittent symptoms Relative rest Activity modification was discussed as well as the use of heat and ice. The patient was given proper education for the condition and treatment including risks and precautions. Patient verbalizes understanding. Analgesics PRN Physical therapy Home Exercise Program. The patient will follow up as needed .?? * Procedure Codes:? * Follow Up:?prn * * Sign off status: Completed true * Provider:?Jayme Leigh MD Date:?2022 Generated for Printi deidra/Tameka/Luiitting on:?03/24/2024 02:32 PM EDT
--- OUTSIDE RECORDS SUMMARY | 2024-03-24 14:33 | XMS_ITS | Encounter Summary ---
Author Organization [facility] Address [address] [place] [address] Care Team Providers Care Oncology Rep Specialist Name Role Phone Nia Molina MATERIALS ENGINEER Primary Care Provider [phone] Reason for Visit * Reason Onset Date Comments Other 03/27/2021 Encounter Details Date Type Department Care Team (Late st Contact Info) Description 03/27/2021 Telephone [facility] - [address] [address] Yahir Cuevas MD [address] [place] [address], [address] [place] [phone] Other Social History Tobacco Use Types Packs/Day Years [...] encounter Miscellaneous Notes * Telephone Encounter - Janie Brewer COA - 03/28/2021 0849 EDT Spoke with Veronica and stated it was fine to start medication per RR * Telephone Encounter - Nichelle Cagle - 03/27/2021 1632 EDT Pt wants to know if its ok to start doxycycline to treat a possible tick bite documented in this encounter Plan of Treatment Upcoming Encounters Date Type Department Care Team (Late st Contact Info) Description 05/27/2024 9:45 EDT Office Visit [facility] - [address] [address] Yahir Cuevas MD [address] [facility], [address] [place] [phone] documented as of this encounter Visit Diagnoses Not on filedocumented in this encounter Care Teams Oncology Rep Specialist Relationship Specialty Start Date End Date Nia Molina NP [address] [place] [phone] PCP - General Family Medicine - Primary Care 09/26/20 08/06/21 documented as of this encounter
--- OUTSIDE RECORDS SUMMARY | 2024-03-24 14:33 | XMS_ITS | Encounter Summary ---
Author Organization [facility] Address [address] [place] [address] Care Team Providers Care Memorial Designer Name Role Phone Nia Molina DINNER COOK Primary Care Provider [phone] Reason for Visit * Reason Onset Date Comments Appointment Related 10/08/2020 Encounter Details Date Type Department Care Team (Late st Contact Info) Description 10/08/2020 Telephone [facility] Hand & Upper Extremity Program - [address] [address] Mesha Powell PA-C [address] [employer] [place] [address] Appointment Related Social History Tobacco Use Types [...] 15:47 EST documented as of this encounter Miscellaneous Notes * Telephone Encounter - Julia Foster MA - 10/08/2020 1552 EST I left message for Kirt: Your left thumb injection follow up is scheduled on 01/01/2021@9:30, this appt is going to be a telemedicine. If you have any questions please call at [phone]. JULIA FOSTER MA documented in this encounter Plan of Treatment Upcoming Encounters Date Type Department Care Team (Late st Contact Info) Description 05/27/2024 9:45 EDT Office Visit [facility] Ophthalmology - [address] [phone] Yahir Cuevas MD 111 [facility], [address] [place] [address] documented as of this encounter Visit Diagnoses Not on filedocumented in this encounter Care Teams Memorial Designer Relationship Specialty Start Date End Date Nia Molina NP [address] [place] [phone] PCP - General Family Medicine - Primary Care 09/26/20 08/06/21 documented as of this encounter
--- OUTSIDE RECORDS SUMMARY | 2024-03-24 14:33 | XMS_ITS | Encounter Summary ---
Author Organization [facility] Address [address] [place] [address] Care Team Providers Care Family Court Registrar Name Role Phone Yahir Spain MD Primary Care Provider Unavaila ble Reason for Referral * (Routine) - Closed Specialty Diagnoses / Procedures [facility] Referred To Contact Diagnoses Nonexudative senile macular degeneration of retina Procedures OCT (OPHTHALMIC DIGITAL IMAGING, POSTERIOR SEGMENT) Daniel Peres MD [address] [address] Referral ID Status Reason Start Date Expiration Date Visits Re quested Visits Authorized [id number] Closed 03/30/2015 1 1 Reason for Visit * Reason Comments Eye Problem Mod NNV AMD both eye s; VS both eyes; Dry Eyes-both. Pt. notes wavy film across both eyes in AM x 2 months. Pt. notes also that vision at dusk. Difficulty driving at night. Pt. notes overall vision is decreased. Medication Management Refresh tears PRN 2/2 Encounter Details Date Type Department Care Team (Late st Contact Info) Description 03/30/2015 9:00 EDT Office Visit [facility] Ophthalmology - [address] [place], [place] [phone] Daniel Peres MD [address] [address] Social History Tobacco Use Types [...] Progress Notes * Daniel Peres MD - 03/30/2015 0957 EDT Chief Complaint Patient presents with ??? Eye Problem Mod NNV AMD both eyes; VS both eyes; Dry Eyes-both. Pt. notes wavy film across both eyes in AM x 2 months. Pt. notes also that vision at dusk. Difficulty driving at night. Pt. notes overall vision isdecreased. ??? Medication Management Refresh tears PRN 2/2 HPI Location: Both eyes Pain: None Quality: Severity: Duration: Months Timing: Constant Lasts: Months Context: Mod NNV AMD both eyes; VS both eyes; Dry Eyes-both. Pt. notes wavy film across both eyes in AM x 2 months. Pt. notes also that vision at dusk. Difficulty driving at night. Pt. notes overall vision is decreased. Modifying factors: AREDS Associated Signs & Symptoms: visual symptoms really only happen at sage and dusk both eyes AG is OK both Visual Fluctuations: Flashes Attestation: Base Eye Exam Visual Acuity (Snellen - Linear) Right Left Dist sc 20/20 20/20 Dist cc 20/20 20/25 Near cc J3 J3 Tonometry (Applanation, 9:28) Right Left Pressure 15 15 Pupils Pupils Dark Light React APD Right PERRL 4 3 Brisk None Left PERRL 4 3 Brisk None Visual Singer Right Left Result Full Full Extraocular Movement Right Left Result Full, Ortho Full, Ortho Neuro/Psych Oriented x3: Yes Mood/Affect: Normal Dilation Both eyes: 1.0% Mydriacyl, 2.5% Phenylephrine @ 9:29 Additional Tests Amsler Right Left Amsler Normal Slit Lamp and Fundus Exam Slit Lamp Exam Right Left Lids/Lashes Blepharitis Blepharitis Conjunctiva/Sclera White and quiet White and quiet Cornea SPK SPK Anterior Chamber Deep and quiet Deep and quiet Iris Round and reactive Round and reactive Lens 1+ Nuclear sclerosis 1+ Nuclear sclerosis Vitreous Vitreous syneresis Vitreous syneresis Fundus Exam Right Left Disc Normal Normal C/D Ratio 0.3 0.3 Macula extensive drusen, small, medium, large; no fluid or heme lg drusen, some medium and small; no fluid or heme Vessels Normal Normal Periphery Normal Normal Edited by: Dorothea Reyes Refraction Wearing Rx Sphere Cylinder [place] Add Right +0.75 +0.25 164 +1.75 Left +0.25 +0.50 009 +1.75 Age: 1yr Type: PAL All five layers of the cornea are normal unless otherwise specified. Please refer to large retinal drawing. IMAGING: OCT REPORT Indications: Age-related Macular Degeneration Findings: Right Eye Left Eye Drusen Drusen Original test to be found in patients shadow chart IMPRESSION: 1. Nonexudative senile macular degeneration of retina 2. Vitreous syneresis, bilateral 3. Senile nuclear sclerosis, bilateral 4. Dry eye, bilateral PLAN: Mod NNV AMD both eyes with extensive large drusen No SRF, no heme Continue Areds vits Reassure Follow every 6 months Heavy Vit syn both eyes, no PVD RD warnings reviewed Observe Mild NSC both eyes, presurgical Follow Dry eyes, both Frequent ATs Recheck 6 months I, Dr. Daniel Peres, have performed my [...] Visit [facility] Ophthalmology - [address] [address] Yahir Cuevas MD [address] [place] [address], [address] [place] [address] Scheduled Orders Name Type Priority Associated Diagnoses Orde r Schedule OCT (OPHTHALMIC DIGITAL IMAGING, POSTERIOR SEGMENT) Ophthalmology Routine Nonexudative Senile Macular Degeneration of Retina Ordered: 03/30/2015 documented as of this encounter Visit Diagnoses Diagnosis Nonexudative senile macular degeneration of retina- Primary Vitreous syneresis, bilateral Senile nuclear sclerosis, bilateral Dry eye, bilateral documented in this encounter Eye Exam Visual Acuity (Snellen - Linear) Right eye Left eye Dist sc 20/20 20/20 Dist cc 20/20 20/25 Near cc J3 J3 Tonometry (Applanation, 9:28) Right eye Left eye Pressure 15 15 Pupils Pupils Dark Light React APD Right eye PERRL 4 3 Brisk None Left eye PERRL 4 3 Brisk None Visual Singer Right eye Left eye Full Full Extraocular Movement Right eye Left eye Full, Ortho Full, Ortho Neuro/Psych Oriented x3: Yes Mood/Affect: Normal Dilation Both eyes: 1.0% Mydriacyl, 2 .5% Phenylephrine @ 9:29 Amsler Right eye Left eye Normal Slit Lamp Exam Right eye Left eye Lids/Lashes Blepharitis Blepharitis Conjunctiva/Sclera White and quiet White and yenni et Cornea SPK SPK Anterior Chamber Deep and quiet Deep and quiet Iris Round and reactive Round and radhika ctive Lens 1+ Nuclear sclerosis 1+ Nuclear sclerosis Vitreous Vitreous syneresis Vitreous syne resis Fundus Exam Right eye Left eye Disc Normal Normal C/D Ratio 0.3 0.3 Macula extensive drusen, sm all, medium, large; no fluid or heme lg drusen, some medium and small; no fluid or heme Vessels Normal Normal Periphery Normal Normal Wearing Rx Sphere Cylinder [place] Add Right eye +0.75 +0.25 164 +1.75 Left eye +0.25 +0.50 009 +1.75 Age: 1yr Type: PAL Care Teams Family Court Registrar Relationship Specialty Start Date End Date Yahir Spain MD PCP - General 12/23/12 01/08/17 documented as of this encounter
--- OUTSIDE RECORDS SUMMARY | 2024-03-24 14:33 | XMS_ITS | Encounter Summary ---
Author Organization [facility] Address [address] [place] [address] Care Team Providers Care Hansard Reporter Name Role Phone Yahir Spain MD Primary Care Provider Unavaila ble Reason for Visit * Reason Comments Follow-up Dry AMD both eyes Encounter Details Date Type Department Care Team (Late st Contact Info) Description 02/17/2014 8:30 EDT Office Visit [facility] Ophthalmology - [address] [address] Daniel Peres MD [address] [place] [address], [address] [place] [address] Social History Tobacco Use Types [...] Progress Notes * Daniel Peres MD - 02/17/2014 0923 EDT Chief Complaint Patient presents with ??? Follow-up Dry AMD both eyes HPI Location: Both eyes Pain: 0 - No pain Quality: Blurry;Penetrating Severity: Mild Duration: Months Timing: Constant Lasts: Continuous Context: pt indicates that when he opens his eyes he has an after image located centrally shaped like a kidney. does not last more than 1 minute. started over last month Only happens at night lying down Modifying factors: no flashes. chronic rare floater. Night VA is becoming difficult. pt not adjusting to his progressive lenses very well. Dr. Gomez indicated he needs to wear them more Associated Signs & Symptoms: occa'l gets sharp pain that does not last long. occa'l uses AT's Visual Fluctuations: Floaters Attestation: Base Eye Exam Visual Acuity Right Left Dist cc 20/20 20/20 -1 Method: Snellen - Linear Tonometry Right Left Pressure 17 17 Method: Applanation Time: 8:28 Pupils Pupils Right PERRL Left PERRL Extraocular Movement Right Left Result Full Full Neuro/Psych Oriented x3: Yes Mood/Affect: Normal Dilation Both eyes: 1.0% Mydriacyl, 2.5% Phenylephrine @ 8:29 Slit Lamp and Fundus Exam Slit Lamp Exam Right Left Lids/Lashes Blepharitis Blepharitis Conjunctiva/Sclera White and quiet White and quiet Cornea Clear Pterygium Anterior Chamber Deep and quiet Deep and quiet Iris Round and reactive Round and reactive Lens Nuclear sclerosis Nuclear sclerosis Vitreous Vitreous syneresis Vitreous syneresis Fundus Exam Right Left Disc Normal Normal C/D Ratio 0.25 0.2 Macula drusen lg drusen, RPE changes Vessels Normal Normal Periphery Normal Normal All five layers of the cornea are normal unless otherwise specified. Please refer to large retinal drawing. IMAGING: OCT REPORT Indications: Age-related Macular Degeneration Findings: Right Eye Left Eye Drusen Drusen Original test to be found in patients shadow chart IMPRESSION: 1. Nonexudative senile macular degeneration of retina 2. Vitreous syneresis 3. Senile nuclear sclerosis 4. Dry eye PLAN: Mod NNV AMD both eyes No fluid or heme Continue AG and AREDS 2 Observe Dry Eyes both eyes Continue AT's Observe Vit Syn both eyes No PVD Observe Mild NSC both eyes NVS Observe Return in 6 months with OCT - sooner PRN I, Dr. Daniel Peres, have [...] Info) Description 05/27/2024 9:45 EDT Office Visit [facility] Ophthalmology - [address] [phone] Yahir Cuevas MD 111 [facility], [address] [place] [address] Scheduled Orders Name Type Priority Associated Diagnoses Orde r Schedule OCT (OPHTHALMIC DIGITAL IMAGING, POSTERIOR SEGMENT) Ophthalmology Routine Nonexudative Senile Macular Degeneration of Retina Ordered: 02/17/2014 documented as of this encounter Visit Diagnoses Diagnosis Nonexudative senile macular degeneration of retina- Primary Vitreous syneresis Other vitreous opacities Senile nuclear sclerosis Dry eye Tear film insufficiency, unspecified documented in this encounter Historical Medications * This list may reflect changes made after this encounter. Medication Sig Dispensed Refills Start Date End Date VIT C/E/ZN/COPPR/LUTEIN/ZEAXAN (PRESERVISION AREDS 2 ORAL) Take by mouth. added in this encounter Eye Exam Visual Acuity (Snellen - Linear) Right eye Left eye Dist cc 20/20 20/20 -1 Tonometry (Applanation, 8:28) Right eye Left eye Pressure 17 17 Pupils Pupils Right eye PERRL Left eye PERRL Extraocular Movement Right eye Left eye Full Full Neuro/Psych Oriented x3: Yes Mood/Affect: Normal Dilation Both eyes: 1.0% Mydriacyl, 2 .5% Phenylephrine @ 8:29 Slit Lamp Exam Right eye Left eye Lids/Lashes Blepharitis Blepharitis Conjunctiva/Sclera White and quiet White and yenni et Cornea Clear Pterygium Anterior Chamber Deep and quiet Deep and quiet Iris Round and reactive Round and radhika ctive Lens Nuclear sclerosis Nuclear sclero sis Vitreous Vitreous syneresis Vitreous syne resis Fundus Exam Right eye Left eye Disc Normal Normal C/D Ratio 0.25 0.2 Macula drusen lg drusen, RPE c hanges Vessels Normal Normal Periphery Normal Normal Care Teams Hansard Reporter Relationship Specialty Start Date End Date Yahir Spain MD PCP - General 12/23/12 01/08/17 documented as of this encounter
--- OUTSIDE RECORDS SUMMARY | 2024-03-24 14:33 | XMS_ITS | Encounter Summary ---
Author Organization [facility] Address [address] [place] [address] Care Team Providers Care Machine Bunch Maker Name Role Phone Nia Molina EMBLEM CUTTER Primary Care Provider [phone] Reason for Visit * Reason Onset Date Comments Eye Problem 03/12/2021 Encounter Details Date Type Department Care Team (Late st Contact Info) Description 03/12/[address] [facility] Ophthalmology - [place] [address] [place] [address] Yahir Cuevas MD [address] [facility], [place] [address] [place] [address] Eye Problem Social History Tobacco [...] encounter Miscellaneous Notes * Telephone Encounter - Delmy Howard - 03/12/2021 1908 EDT Scheduled Apt for 03/12/21 Delmy Howard 03/12/2021 19:08 * Telephone Encounter - Jesus Ivan RN - 03/12/[address] Cuevas can see today. Delmy to call and schedule. Jesus Person RN 03/12/2021 10:24 * Telephone Encounter - Janie Soto - 03/12/2021 0941 EDT Which Eye? Right Nature of problem? increades floaters sat and squigly lines and film over eye and gets worse with head movement Onset and Duration? 3 days Is this an injury or trauma? No Are you having pain? Describe the type of pain you are having (sharp, dull, etc) No If yes, please rate pain on scale 0-10? 0 Have you had any recent surgery? No Most Recent records are being fax to [facility] and they feel he should be seen today as he is here in [facility] today. He can be reached at [phone]. documented in this encounter Plan of Treatment Upcoming Encounters Date Type Department Care Team (Late st Contact Info) Description 05/27/2024 9:45 EDT Office Visit [facility] Ophthalmology - [address] [id number] Yahir Cuevas MD [address] [facility], [address] [place] [phone] documented as of this encounter Visit Diagnoses Not on filedocumented in this encounter Care Teams Machine Bunch Maker Relationship Specialty Start Date End Date Nia Molina NP [address] [place] [phone] PCP - General Family Medicine - Primary Care 09/26/20 08/06/21 documented as of this encounter
--- OUTSIDE RECORDS SUMMARY | 2024-03-24 14:33 | XMS_ITS | Encounter Summary ---
Author Organization [facility] Address [address] [place] [address] Care Team Providers Care Middleware Architect Name Role Phone Nia Molina PROPERTY CLAIM REP Primary Care Provider [phone] Reason for Visit * Reason Onset Date Comments Post-OP Follow Up 03/13/2021 Encounter Details Date Type Department Care Team (Late st Contact Info) Description 03/13/2021 Telephone [facility] Ophthalmology - [address] [phone] Yahir Cuevas MD [address] [facility], [address] [place] [address] Post-OP Follow Up Social History Tobacco Use Types Packs/Day Years [...] encounter Miscellaneous Notes * Telephone Encounter - Jesus Ivan RN - 03/13/[address] Cuevas called and spoke to patient. Jesus Person RN 03/13/2021 11:01 * Telephone Encounter - Nichelle Cagle - 03/13/2021 0985 EDT Pt expected a call back today regarding the laser he had last night. He wanted to report that when he woke up this morning he is still seeing the same blurry squiggle in his vision that looks worse than it did yesterday. He got the impression that the laser would be an instant fix. No flashes, and the floaters stayed the same. No loss of vision A little bit blurry in both eyes for distance vision no more redness than usual No tearing or discharge. documented in this encounter Plan of Treatment Upcoming Encounters Date Type Department Care Team (Late st Contact Info) Description 05/27/2024 9:45 EDT Office Visit [facility] Ophthalmology - [address] [phone] Yahir Cuevas MD [address] [place] [address], [address] [place] [phone] documented as of this encounter Visit Diagnoses Not on filedocumented in this encounter Care Teams Middleware Architect Relationship Specialty Start Date End Date Nia Molina NP [address] [place] [phone] PCP - General Family Medicine - Primary Care 09/26/20 08/06/21 documented as of this encounter
--- OUTSIDE RECORDS SUMMARY | 2024-03-24 14:33 | XMS_ITS | Encounter Summary ---
Author Organization [facility] Address [address] [place] [address] Care Team Providers Care Power Plant Manager Name Role Phone Nia Molina ROTARY DUMP OPERATOR Primary Care Provider [phone] Reason for Referral * Radiology Services (Routine) - Closed Specialty Diagnoses / Procedures Referred By Brennan dawson Referred To Contact Diagnoses Arthritis of carpometacarpal (CMC) joint of left thumb Procedures FL GUIDED LOCALIZATION, ASPIRATION, INJECTION, BIOPSY US GUIDED INJECTION OR ASPIRATON ANY SITE Mesha Powell PA-C [address] [place] [phone] Referral ID Status Reason Start Date Expiration Date Visits Re quested Visits Authorized [id number] Closed 10/02/2020 1 1 * PT/OT/ST (Routine) - New Request Specialty Diagnoses / Procedures Referred By Brennan dawson Referred To Contact Rehab Therapies Diagnoses Arthritis of carpometacarpal (CMC) joint of left thumb Mesha Powell PA-C [address] [place] [phone] [facility] Rehab Therapy [address] [place] [phone] Referral ID Status Reason Start Date Expiration Date Visits Requested Visits Authorized [id number] New Request Specialty Services Required 10/02/2020 1 1 Question Answer Reason for Request: Left CMC OA - splint Metagrip vs opponens vs cool comfort Reason for Visit * Reason Comments Pain * Consult (Routine) - Closed Specialty Diagnoses / Procedures Referred By Brennan dawson Referred To Contact Orthopedic Surgery Diagnoses Pain in left finger(s) Nia Molina, ROTARY DUMP OPERATOR [address] [place] [address] [facility] Ortho Upper Extremity [address] [facility] [place] [address] Referral ID Status Reason Start Date Expiration Date Visits Re quested Visits Authorized [id number] Closed 1 1 Encounter Details Date Type Department Care Team (Latest Contact Info) Description 10/02/2020 13:00 EST Office Visit [facility] Hand & Upper Extremity Program - [facility] [address] [place] [place] [address] Mesha Powell PA-C [address] [place] [phone] Arthritis of carpometacarpal (CMC) joint of left thumb (Primary Dx) Social History Tobacco Use Types [...] 15:47 EST documented as of this encounter Progress Notes * Mesha Powell PA-C - 10/02/2020 1300 EST PROBLEM: Left thumb pain SUBJECTIVE: Kirt Mora is a 59 y.o. RHD male who is seen for evaluation regarding chronic left thumb pain. Patient notes a long history of injuries to the left thumb. He reports 10 to 12 years ago sustaining lacerations to the thumb tip extending to the bone at the distal phalanx that were treated conservatively. He reports healing well but since that time has always had persistent numbness in the thumb tip. He notes 5 years ago he hit a chisel into the thumb at the level of the MCP joint over the extensor surface. He was not treated at the time for any injury and though he has had function of the thumb is wondering if maybe that began to flare up more of the pain he has been experiencing. He reports the majority of his pain is at the base of the thumb at the CMC joint. He has noticedsignificant hypertrophy there. He has pain particularly with grasping or with finer motor activities. 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 A year ago he saw Dr. Prabhakar at [facility] orthopedics. He was told he had arthritis and should do therapy, consider injections, and potentially have surgery if conservative management did not help. Patient did 2 sessions of PT with no significant improvement. The Covid pandemic then hit and he did not have any further treatment. He does note retrofitting a thumb spica type brace for himself and trying to apply traction over the area of the CMC. He notes however over time he thinks that wearing the splint too tightly was actually causing more pain and he stopped wearing this. He is wondering what could be done for the thumb and what is causing his symptoms. ROS: A 10-point review of systems has been documented on the patient intake form, reviewed by me, and scanned into the medical record. Past medical, surgical, and family history have been reviewed in the patient chart. 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 Lives with a spouse. Non-smoker. Occasionally drinks alcohol. Denies recreational drug use. Past Medical History: Diagnosis Date ??? Cataract ??? Eye trauma nail in ?eye History reviewed. No pertinent surgical history. Current Outpatient Medications Medication ??? ibuprofen (ADVIL) 200 mg tablet ??? MINERAL OIL/PETROLATUM,WHITE (TEARS AGAIN OPHTHALMIC) ??? Lakeside-3 Fatty Acids-Vitamin E (FISH OIL) 1,000 mg cap ??? Vit A,C,A-Qvmk-Lsnyxi (ICAPS AREDS) capsule ??? VIT C/E/ZN/COPPR/LUTEIN/ZEAXAN (PRESERVISION AREDS 2 ORAL) No current facility-administered medications for this visit. Allergies Allergen Reactions ??? Hay Fever And Allergy Relief OBJECTIVE: On exam, patient is found to be a pleasant and cooperative male. Psych: Alert and oriented x 3 with normal affect. Constitutional: Well-developed and in no significant distress. Focused exam of the left hand and thumb demonstrates skin is intact without increased warmth or erythema. Length of the distal thumb is slightly shorter than the unaffected side. Significant hypertrophy seen at the CMC joint. Tenderness to palpation over the site. Positive grind test. Limited adduction with thumb brought to approximately the level of the base of the ring finger. Limited flexion and extension at the IP and MCP joints as well. FPL and EPL are intact. Mildly decreased APB strength. Sensation intact to light touch except at the tip of the thumb from approximately the level of thenail distally. Skin warm and appears well perfused without cyanosis or pallor. DIAGNOSTICS: Radiographs of left hand from outside facility from 09/27/2019 were personally visualized. Films demonstrate severe degenerative changes at the CMC joint with significant bone spurring and subluxation of the metacarpal from the CMC joint itself. Significant triscaphe joint degenerative changes as well. There are degenerative changes seen throughout the IP's and MCP joints of all of the fingers and thumb. Posttraumatic changes of the distal phalanx of the thumb also noted. 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 We had a lengthy discussion regarding his clinical exam aswell as his x-rays and the treatment spectrum for this condition. He has significant CMC osteoarthritis. We discussed trialing splinting and a hand therapy referral was placed today so he could be fitted with a splint. We also discussed trying a cortisone injection. I will send him to have this done with radiology under imaging guidance to better localize the injection site. We discussed if conservative management fails surgical intervention would be the next step. We briefly discussed procedures as well as postop rehab and recovery. I will follow up with the patient in 2 months via telemedicine visit to discuss efficacy of his CMC injection. Patient was very pleased with the plan and his questions were answered today. I would recommend dedicated left thumb films at his next in office visit. Plan at follow up: Telemed f/u on injxn efficacy Dr. Palacios was the attending physician available in the clinic today if needed. A consultation was not required. This note was prepared using voice recognition software and the EMR. There may be inadvertent errors and omissions. Mesha Powell PA-C, 10/02/2020 documented in this encounter Plan of Treatment Upcoming Encounters Date Type Department Care Team (Late st Contact Info) Description 05/27/2024 9:45 EDT Office Visit [facility] Ophthalmology - [address] [phone] Yahir Cuevas MD [address] [facility], [address] [place] [address] Scheduled Referrals Name Type Priority Associated Diagnoses Orde r Schedule AMB CONS/FOLLOW UP HAND THERAPY Outpatient Referral Routine Arthritis of carpometacarpal (CMC) joint of left thumb Expected: 10/02/2020 (Approximate) documented as of this encounter Results * FL GUIDED INJECT/ASPIR [...] andagree with the findings. Mesha Powell PA-C IMG FLUOROSCOPY ORDERABLES documented in this encounter Visit Diagnoses Diagnosis Arthritis of carpometacarpal (CMC) joint of left thumb- Primary Arthritis of carpometacarpal (CMC) joint of left thumb documented in this encounter Care Teams Power Plant Manager Relationship Specialty Start Date End Date Nia Molina, TAZ [address] [place] [phone] PCP - General Family Medicine - Primary Care 09/26/20 08/06/21 documented as of this encounter
== END 2024-03-24 14:23 | disposition home or self-care (01) ==
LOC: NCHCN 14:22
PROVIDERS: PCP Internal Medicine; Visit Provider Internal Medicine
DX: C44.319 Basal cell carcinoma of skin of other parts of face (principal)
CPT/HCPCS: 88305